=== PATIENT | female | born 1965 | race American Indian/Alaskan Native ===

== ENCOUNTER 2016-03-31 14:06 | Inpatient (IN) | payer BC ==
[2016-03-31] MEDS ORDERED: PROVENTIL IH ONE (14:08)
[2016-03-31] MEDS ORDERED: ATROVENT IH ONE (14:09)
--- NOTE | 2016-03-31 16:53 | XRay Report ---
CHEST 2 VIEWS INDICATION: Shortness of breath. COMPARISON: None similar at this institution. FINDINGS: PA and lateral chest radiographs suggest top normal heart size with normal mediastinal and hilar contours. Clear lungs. Intact bones. EKG leads. CONCLUSION: No acute disease in the chest. Thank you for the opportunity to participate in this patient's care.
[2016-03-31 17:36] LABS: Basophils % (Auto) 0.6 % (0.0-1.8); Eosinophils % (Auto) 1.2 % (0.0-4.3); Hematocrit 27.5 % (30.3-42.9); Hemoglobin 8.3 gm/dl (10.1-14.3); Mean Corpuscular HGB Conc 30 % (30-34); Mean Corpuscular Volume 78 fl (79-97); Platelet Count 404 K/mm3 (140-440); Red Blood Count 3.51 M/mm3 (3.65-5.03); Red Cell Distribution Width 19.3 % (13.2-15.2); White Blood Count 7.6 K/mm3 (4.5-11.0)
[2016-03-31 17:43] LABS: Mean Corpuscular Hemoglobin 24 pg (28-32)
[2016-03-31 18:00] LABS: Anion Gap 22 mmol/L; Blood Urea Nitrogen 8 mg/dL (7-17); Calcium 9.1 mg/dL (8.4-10.2); Carbon Dioxide 21 mmol/L (22-30); Chloride 97.4 mmol/L (98-107); Glucose 171 mg/dL (65-100); Potassium 3.3 mmol/L (3.6-5.0); Sodium 137 mmol/L (137-145)
[2016-03-31] MEDS ORDERED: DELTASONE PO ONE (18:10)
--- NOTE | 2016-03-31 18:12 | Emergency Department Report ---
ED Shortness of Breath HPI - General Chief Complaint: Adult Asthma Stated Complaint: ASTHMA Time Seen by Provider: 03/31/16 17:17 Source: patient Mode of arrival: Ambulatory Limitations: No Limitations - History of Present Illness Initial Comments: 50-year-old female presents to the emergency department complaining of shortness of breath. Patient states for the past 3 days she has been having difficulty breathing that is worse with exertion. She denies chest pain. Patient states she was diagnosed with asthma 2 months ago. She reports occasional wheezing. Patient states she also moved from [place] in the past couple days. She states that she drove for 4 days. There are no other complaints. MD Complaint: shortness of breath -: Gradual, days(s) (3) Consistency: intermittent Improves With: rest Worsens With: exertion Known History Of: asthma, diabetes Context: recent travel Associated Symptoms: denies other symptoms Treatments Prior to Arrival: none - Related Data Previous Rx's Medication Instructions Recorded Last Taken Type predniSONE [Deltasone] 3 tab PO QDAY #15 tab 03/31/16 Unknown Rx Allergies Allergy/AdvReac Type Severity Reaction Status Date / Time Penicillins Allergy Hives Verified 03/31/16 14:35 ED Review of Systems ROS: Stated complaint: ASTHMA Other details as noted in HPI Comment: All other systems reviewed and negative Respiratory: SOB with exertion ED Past Medical Hx - Past Medical History Previous Medical History?: Yes Hx Hypertension: Yes Hx Diabetes: Yes Hx Arthritis: Yes Hx Asthma: Yes - Surgical History Past Surgical History?: Yes Additional Surgical History: - Family History Family history: no significant - Social History Smoking Status: Former Smoker Substance Use Type: None - Medications Home Medications: Home Medications Medication Instructions Recorded Confirmed Last Taken Type predniSONE [Deltasone] 3 tab PO QDAY #15 tab 03/31/16 Unknown Rx ED Physical Exam - General Limitations: No Limitations General appearance: alert, in no apparent distress - Head Head exam: Present: atraumatic, normocephalic - Eye Eye exam: Present: normal appearance, PERRL, EOMI - ENT ENT exam: Present: normal exam, normal orophraynx, mucous membranes moist - Neck Neck exam: Present: normal inspection, full ROM. Absent: tenderness - Respiratory Respiratory exam: Present: normal lung sounds bilaterally. Absent: respiratory distress - Cardiovascular Cardiovascular Exam: Present: regular rate, normal rhythm, normal heart sounds - GI/Abdominal GI/Abdominal exam: Present: soft, normal bowel sounds. Absent: distended, tenderness - Extremities Exam Extremities exam: Present: normal inspection, full ROM. Absent: tenderness - Back Exam Back exam: Present: normal inspection, full ROM. Absent: tenderness - Neurological Exam Neurological exam: Present: alert, oriented X3. Absent: motor sensory deficit - Skin Skin exam: Present: warm, dry, intact ED Course Vital Signs 03/31/16 03/31/16 03/31/16 14:06 14:17 14:42 Temperature 98.1 F Pulse Rate 85 Pulse Rate [ 80 85 Bilateral Upper Lobe] Respiratory 26 H Rate Respiratory 20 20 Rate [Bilateral Upper Lobe] Blood Pressure 132/80 Blood Pressure [Left] O2 Sat by Pulse 100 Oximetry 03/31/16 17:29 Temperature Pulse Rate 102 H Pulse Rate [ Bilateral Upper Lobe] Respiratory 20 Rate Respiratory Rate [Bilateral Upper Lobe] Blood Pressure Blood Pressure 127/86 [Left] O2 Sat by Pulse 98 Oximetry ED Medical Decision Making - Lab Data Result diagrams: 03/31/16 16:47 03/31/16 16:47 - EKG Data -: EKG Interpreted by [place] EKG shows normal: sinus rhythm, axis, intervals, QRS complexes, ST-T waves Rate: tachycardia - EKG Data When compared to previous EKG there are: previous EKG unavailable Interpretation: normal EKG - Medical Decision Making Lab results reviewed and discussed with the patient. Patient has an elevated d- dimer and is in need of a CTA of the chest for evaluation of possible PE. Patient is stating that she needs to go home at this time. Patient states she will come back in the morning for the imaging study. Risks of leaving AGAINST MEDICAL ADVICE were discussed with the patient, including and permanent disability. Patient expresses understanding and states she will come back in the morning. Patient has signed the AMA form. - Differential Diagnosis asthma exacerbation, pulmonary embolism Critical care attestation.: If time is entered above; I have spent that time in minutes in the direct care of this critically ill patient, excluding procedure time. ED Disposition Clinical Impression: Shortness of breath on exertion Disposition: LEFT AGAINST MEDICAL ADVICE Is pt being admited?: No Condition: Stable Prescriptions: predniSONE [Deltasone] 3 tab PO QDAY #15 tab Referrals: PRIMARY CARE, [Primary Care Provider] - 3-5 Days Forms: AMA Form Time of Disposition: 18:12
[2016-03-31] MEDS ORDERED: NACL ONE (18:45)
[2016-03-31] MEDS ORDERED: ZOFRAN IV ONE (19:33)
--- NOTE | 2016-03-31 19:47 | Cat Scan Report ---
FINAL REPORT PROCEDURE: CT ANGIO CHEST TECHNIQUE: Computerized tomographic angiography of the chest was performed after the IV injection of iodinated nonionic contrast including image processing. The image data was postprocessed using 2-dimensional multiplanar reformatted (MPR) and 3-dimensional (MIP and/or volume rendered) techniques. HISTORY: SOB on exertion, recent travel, elevated d-dimer COMPARISON: No prior studies are available for comparison. FINDINGS: Mild hypoventilatory changes are seen in the lungs. No pleural effusion or pneumothorax is seen. Heart is mildly enlarged but no pulmonary venous congestion is seen. No mediastinal lymphadenopathy is seen. Thoracic aorta is normal in size without evidence of dissection. There is a saddle pulmonary embolus with embolus in the right pulmonary artery system being greater than the left pulmonary artery system. On the right there is involvement of multiple proximal and distal branches in the right upper, middle, and lower lobes. On the left there is more mild involvement of several proximal to mid branches of the left upper and lower lobes. There are 2 rounded soft tissue densities in the left lower lobe of the lungs. These measure approximately 1.6 and 0.7 cm in size. Findings could be due to pulmonary infarction but rounded pneumonia or atelectasis are not excluded. Malignancy would be less likely cause but cannot be completely excluded. Followup CT in a few weeks time may be useful to assure resolution. IMPRESSION: Saddle pulmonary embolus is seen with prominent involvement of pulmonary arteries, right greater than left. Two rounded soft tissue densities are seen in the left lower lobe of the lungs and could be rounded pneumonia or atelectasis. Malignancy or pulmonary infarction cannot be completely excluded. Followup chest CT in a few weeks time may be useful to assure resolution. Critical results were discussed with Dr. Newman at 7:45 p.m. on March 31, 2016.
[2016-03-31] MEDS ORDERED: HEPARIN 10,000 UNITS/10 ML IV ONE (19:50)
[2016-03-31] MEDS ORDERED: HEPARIN/ 0.45% NACL-25,000 UNIT/500 ML 25,000 UNIT/500 ML BAG IV SCH (20:00)
[2016-03-31] MEDS ORDERED: ZOFRAN IV PRN (20:24)
[2016-03-31] MEDS ORDERED: MILK OF MAGNESIA PO PRN (20:24)
[2016-03-31] MEDS ORDERED: DULCOLAX PR PRN (20:24)
[2016-03-31] MEDS ORDERED: TYLENOL PO PRN (20:24)
[2016-03-31] MEDS ORDERED: PERCOCET 5/325 PO PRN (20:24)
[2016-03-31] MEDS ORDERED: D50W (25GM) IV PRN (20:24)
[2016-03-31 20:32] LABS: Hematocrit 28.7 % (30.3-42.9); Hemoglobin 8.8 gm/dl (10.1-14.3)
--- NOTE | 2016-03-31 20:37 | History and Physical Report ---
History of Present Illness Date of examination: 03/31/16 Date of admission: 03/31/2016 Chief complaint: Shortness of breath dyspnea on exertion History of present illness: 80-year-old female presents with a 3 day history of shortness of breath dyspnea on minimal exertion. Dry nonproductive cough. Patient states that symptoms may have began upon a drive from [place] to [facility]. Patient states when she got in [place] she daughter was the change in altitude but began having shortness of breath. Several days prior to leaving she had a cough. Patient states she did a cough for 1 month. And she was diagnosis asthma at that time. Patient now complains mostly of dyspnea on exertion and shortness of breath with oversedation. No chest pain no fever or chills no nausea vomiting. Still has an occasional cough. Patient complains of pleuritic pain for the cough. Patient gives a family history of having diabetes and hypertension but no family history of blood clots. She denied any calf pain Tenderness. Past History Past Medical History: diabetes, pulmonary embolism. denies: acute [place], atrial fib, arrhythmia, anemia, arthritis, CAD, cancer, COPD, dialysis, DVT, ESRD, GERD , heart failure, hepatitis, HIV/AIDS, hyperthyroidism, hypertension, hypothyroidism, liver disease, migraines, PVD, renal failure, seizures, stroke, sarcoidosis Past Surgical History: Social history: no significant social history, full code. denies: smoking, alcohol abuse, prescription drug abuse, IV drug use Family history: no significant family history Medications and Allergies Allergies Allergy/AdvReac Type Severity Reaction Status Date / Time Penicillins Allergy Hives Verified 03/31/16 14:35 Home Medications Medication Instructions Recorded Confirmed Last Taken Type Hydrochlorothiazide [HCTZ] 25 mg PO QDAY 03/31/16 03/31/16 03/31/16 History Insulin Glargine [Lantus] 30 units SQ BID 03/31/16 03/31/16 03/31/16 History Insulin Glulisine [Apidra] 10 units SQ TID 03/31/16 03/31/16 03/31/16 History Potassium Chloride [K-Dur] 20 meq PO QDAY 03/31/16 03/31/16 03/31/16 History predniSONE [Deltasone] 3 tab PO QDAY #15 tab 03/31/16 Unknown Rx Active Meds: Active Medications Heparin Sodium/Sodium Chloride (Heparin/ 0.45% Nacl-25,000 Unit/500 Ml) 25,000 unit in 500 mls @ 30 mls/hr IV TITR LINDA; 1,500 UNITS/HR PRN Reason: Protocol Last Admin: 03/31/16 20:00 Dose: 1,500 units/hr, 30 mls/hr Review of Systems Constitutional: fatigue, weakness, no weight loss, no weight gain, no fever, no chills, no sweats, no night sweats, no anorexia, no malaise, no lethargy, no chronic headaches, no poor appetite Ears, nose, mouth and throat: no deferred, no decreased hearing, no nose pain, no nasal congestion, no epistaxis, no bleeding gums, no dysphagia, no hoarseness , no sore throat, no swelling in mouth, no neck fullness/pressure Breasts: normal Cardiovascular: lightheadedness, shortness of breath, dyspnea on exertion, decreased exercise tolerance, no chest pain, no orthopnea, no palpitations, no rapid/irregular heart beat, no edema, no syncope, no paroxysmal nocturnal dyspnea, no claudication, no phlebitis, no high blood pressure, no leg edema Respiratory: cough, shortness of breath, dyspnea on exertion, no cough with sputum, no excessive sputum, no hemoptysis, no congestion, no wheezing, no pleurisy, no pain, no pain on inspiration, no snoring, no sleep apnea, no respiratory infections, no home oxygen Gastrointestinal: no diarrhea, no constipation, no change in bowel habits, no loss of appetite, no early satiety Genitourinary Female: no dysmenorrhea, no dysuria, no urgency, no post void dribbling Menstruation: no post hysterectomy, no period normal, no period spotting, no menses 1-7 days Rectal: no incontinence Musculoskeletal: no neck stiffness, no shooting arm pain, no low back pain, no muscle weakness, no myalgias, no frequent falls, no fractures, no loss of height , no prior amputations Integumentary: no rash, no redness, no wounds, no jaundice, no blisters, no growths, no darkening of skin, no dryness, no brittle nails, no striae Neurological: no transient paralysis, no paralysis, no tingling, no seizures, no syncope, no tremors, no vertigo, no migraines, no convulsions, no aphasia, no change in speech, no change in mentation, no confusion, no memory loss, no gait dysfunction, no motor disturbance, no double vision, no loss of vision Psychiatric: no memory loss, no sleep disturbances, no insomnia, no hypersomnia , no change in appetite, no suicidal ideation, no hopelessness, no confusion, no irritability, no mood swings Endocrine: no heat intolerance, no polyphagia, no polyuria, no nocturia, no excessive sweating, no weight change, no increase in ring/shoe/hat size, no thyroid mass, no palpatations, no low blood sugars Hematologic/Lymphatic: no lymphadenopathy, no lymphedema, no thrombophilia Allergic/Immunologic: no urticaria, no persistent infections, no gluten intolerance, no seasonal allergies Exam - Constitutional Vitals: Temp Pulse Resp BP Pulse Ox 98.1 F 88 16 106/60 99 03/31/16 14:06 03/31/16 19:30 03/31/16 19:30 03/31/16 19:30 03/31/16 19:30 General appearance: Present: mild distress - EENT Eyes: Present: PERRL ENT: hearing intact, clear oral mucosa - Neck Neck: Present: supple, normal ROM - Extremities Extremities: pulses symmetrical, No edema, normal temperature, Full ROM ( negative Homans sign.) Extremity abnormal: other Peripheral Pulses: within normal limits - Abdominal General gastrointestinal: Present: soft, non-tender, non-distended, normal bowel sounds, other (obese) - Rectal Rectal Exam: deferred - Integumentary Integumentary: Present: clear, warm, dry - Musculoskeletal Musculoskeletal: gait normal, strength equal bilaterally - Psychiatric Psychiatric: appropriate mood/affect, intact judgment & insight - Neurologic Neurologic: CNII-XII intact, moves all extremities Results - Labs CBC & Chem 7: 03/31/16 21:06 03/31/16 16:47 Labs: Laboratory Last Values WBC 7.6 K/mm3 (4.5-11.0) 03/31/16 16:47 RBC 3.51 M/mm3 (3.65-5.03) L 03/31/16 16:47 Hgb 8.3 gm/dl (10.1-14.3) L 03/31/16 16:47 Hct 27.5 % (30.3-42.9) L 03/31/16 16:47 MCV 78 fl (79-97) L 03/31/16 16:47 MCH 24 pg (28-32) L 03/31/16 16:47 MCHC 30 % (30-34) 03/31/16 16:47 RDW 19.3 % (13.2-15.2) H 03/31/16 16:47 Plt Count 404 K/mm3 (140-440) 03/31/16 16:47 Lymph % (Auto) 35.3 % (13.4-35.0) H 03/31/16 16:47 Jack % (Auto) 9.1 % (0.0-7.3) H 03/31/16 16:47 Eos % (Auto) 1.2 % (0.0-4.3) 03/31/16 16:47 Baso % (Auto) 0.6 % (0.0-1.8) 03/31/16 16:47 Lymph # 2.7 K/mm3 (1.2-5.4) 03/31/16 16:47 Jack # 0.7 K/mm3 (0.0-0.8) 03/31/16 16:47 Eos # 0.1 K/mm3 (0.0-0.4) 03/31/16 16:47 Baso # 0.0 K/mm3 (0.0-0.1) 03/31/16 16:47 Seg Neutrophils % 53.8 % (40.0-70.0) 03/31/16 16:47 Seg Neutrophils # 4.1 K/mm3 (1.8-7.7) 03/31/16 16:47 D-Dimer 811.42 ng/mlDDU (0-234) H 03/31/16 16:47 Sodium 137 mmol/L (137-145) 03/31/16 16:47 Potassium 3.3 mmol/L (3.6-5.0) L 03/31/16 16:47 Chloride 97.4 mmol/L (98-107) L 03/31/16 16:47 Carbon Dioxide 21 mmol/L (22-30) L 03/31/16 16:47 Anion Gap 22 mmol/L 03/31/16 16:47 BUN 8 mg/dL (7-17) 03/31/16 16:47 Creatinine 0.8 mg/dL (0.7-1.2) 03/31/16 16:47 Estimated GFR > 60 ml/min 03/31/16 16:47 BUN/Creatinine Ratio 10.00 % 03/31/16 16:47 Glucose 171 mg/dL (65-100) H 03/31/16 16:47 Calcium 9.1 mg/dL (8.4-10.2) 03/31/16 16:47 Troponin T < 0.010 ng/mL (0.00-0.029) 03/31/16 16:47 - Imaging and Cardiology EKG: image reviewed CT scan - chest: image reviewed Assessment and Plan Advance Directives: Yes Plan of care discussed with patient/family: Yes - Patient Problems (1) Pulmonary embolism Current Visit: Yes Status: Acute Qualifiers: Pulmonary embolism type: P Chronicity: C Acute cor pulmonale presence: A Plan to address problem: Patient with significant saddle pulmonary embolus. We'll place patient on oxygen. Start heparin drip. We'll begin immediate cardioversion in a.m. with Coumadin. Patient has been explained the plan of care and how we wish to proceed. All explanations have been explained to patient verbalizes understanding. Will obtain bilateral lower extremity ultrasound to rule out DVT. No clear indication for hypercoagulable state at this time. Most likely risk factor was sedentary lifestyle obesity and prolonged drive from [place]. (2) Shortness of breath on exertion Current Visit: Yes Status: Acute Plan to address problem: Oxygens for supportive care heparin drip. (3) Diabetes 1.5, managed as type 1 Current Visit: Yes Status: Acute Plan to address problem: A short history of insulin-dependent diabetes will resume Levemir and place on sliding scale insulin. Titrate accordingly. (4) Anemia Current Visit: Yes Status: Acute Qualifiers: Anemia type: A Iron deficiency anemia type: I Vitamin B12 deficiency anemia type: V Folate deficiency anemia type: F Bone marrow failure anemia type: B Hemolytic anemia type: H Other causes of anemia: O Plan to address problem: H&H with long-standing anemia unknown diagnosis. We'll follow CBC. H&H. No active bleeding on exam.
[2016-03-31 20:44] LABS: INR 1.2 (0.87-1.13)
[2016-03-31 21:37] LABS: Basophils % (Auto) 0.4 % (0.0-1.8); Eosinophils % (Auto) 0.4 % (0.0-4.3); Hemoglobin 8.8 gm/dl (10.1-14.3); Mean Corpuscular HGB Conc 30 % (30-34); Mean Corpuscular Volume 77 fl (79-97); Platelet Count 441 K/mm3 (140-440); Red Blood Count 3.82 M/mm3 (3.65-5.03); Red Cell Distribution Width 18.9 % (13.2-15.2); White Blood Count 11.4 K/mm3 (4.5-11.0)
[2016-03-31 21:38] LABS: Hematocrit 29.5 % (30.3-42.9); Mean Corpuscular Hemoglobin 23 pg (28-32)
[2016-03-31 21:47] LABS: INR 1.16 (0.87-1.13)
[2016-03-31 21:54] LABS: Alanine Aminotransferase 23 units/L (7-56); Albumin 3.8 g/dL (3.9-5); Albumin/Globulin Ratio 0.9 %; Alkaline Phosphatase 83 units/L (35-129); Anion Gap 20 mmol/L; BUN/Creatinine Ratio 8.75; Bilirubin,Total 0.2 mg/dL (0.1-1.2); Blood Urea Nitrogen 7 mg/dL (7-17); Calcium 9.4 mg/dL (8.4-10.2); Carbon Dioxide 23 mmol/L (22-30); Glucose 169 mg/dL (65-100); Potassium 3.5 mmol/L (3.6-5.0); Sodium 135 mmol/L (137-145); Total Protein 7.9 g/dL (6.3-8.2)
[2016-03-31 22:05] LABS: Partial Thromboplastin Time 89.1 Sec. (24.2-36.6)
[2016-03-31] MEDS: HYDROMET PO PRN (22:15)
[2016-03-31] MEDS: MORPHINE IV PRN (22:23)
[2016-03-31] MEDS: LEVEMIR SUB-Q SCH (22:30)
--- NOTE | 2016-03-31 22:45 | Admit Criteria Form ---
Admission Criteria Documentation: PULMONARY EMBOLISM Clinical Indications for Admission to Inpatient Care (Place 'X' for any and all applicable criteria): Admission is indicated by ANY ONE of the following 1,2,3,4,5 [ ]I. Onset of hypoxia [ ]II. Hemodynamic instability 5 [ ]III. Massive pulmonary embolism (eg, acute embolism causing sustained hypotension, pulselessness, or bradycardia)5 [ ]IV. Need for IV narcotics (eg, to treat dyspnea) [ ]V. Current use of home oxygen therapy [ ]. Active bleeding [ ]VII. Recent surgery [ ]VIII. Active peptic ulcer disease [ ]IX. Documented extensive thrombosis (eg, clot in vena cava or above iliofemoral bifurcation) [ ]X. Embolism while on anticoagulation [ ]XI. 6 [ ]XII. Appropriate monitoring and therapy cannot be provided in home or outpatient setting. [ ]XIII. Systemic or catheter-directed thrombolysis 5,7 [ ]XIV. Catheter embolectomy and fragmentation 6 [ ]XV. Vena cava filter placement5 [ ]XVI. Severely diminished cardiopulmonary reserve (eg, cor pulmonale, pulmonary hypertension) [ ]XVII. Severe renal failure (eg, GFR less than 30 mL/min/1.73m2 (0.5 mL/sec/ 1.73m2)) [ ]XVIII.Right ventricular dysfunction (eg, by echocardiogram) 6,11 [ ]XIX. Positive cardiac biomarker (eg, troponin T or I > 0.1 ng/mL (mcg/L), highly sensitive troponin I assay greater than 0.014 ng/mL (mcg/L), BNP or NT proBNP > assay threshold)5,8,9 [ ]XX. Known clotting abn or def (eg, liver disease, antithrombin III, protein C, or protein S abnormality) [ ]XXI. History of heparin-induced thrombocytopenia [ X]XXII. Inpatient admission required rather than observation care (Also use Pulmonary Embolism: Observation Care guideline as appropriate) because of ANY ONE of the following: [ ] a) Significant autoimmune (thrombocytopenia) or coagulopathic reaction occurs in response to anticoagulation [X ] b) Respiratory symptoms (eg, tachypnea, dyspnea) that are severe or persistent [ ] c) Other condition, treatment, or monitoring requiring inpatient admission Extended stay beyond goal length of stay may be needed for 3,28 [ ]a) Hemorrhage or recent surgery [ ]b) Recurrent thromboembolism [ ]c) Persistent hypoxemia [ ]d) Heparin-induced thrombocytopenia The original [facility] [employer] content created by [facility] [employer] has been revised. The portions of the content which have been revised are identified through the use of italic text or in bold, and [facility] has neither reviewed nor approved the modified material. All other unmodified content is copyright [facility] [employer] Please see references footnoted in the original [facility] edition 2016 Admission Criteria Met: Yes
[2016-04-01] MEDS: HEPARIN/ 0.45% NACL-25,000 UNIT/500 ML 25,000 UNIT/500 ML BAG IV SCH ×2 (04:00→12:24)
--- NOTE | 2016-04-01 12:29 | Consultation ---
History of Present Illness - Reason for Consult Consult date: 04/01/16 Saddle Pulmonary Embolus Requesting physician: DIANNE WEEKS - History of Present Illness The patient is a 50-year-old female who recently moved from [place] to [place]. He states that they drove over several days. During the drive on day #2 she states that she developed shortness of breath however she attributed to the snow and increase in elevation in [place]. Upon arriving to [place] she had no resolution in her symptoms so she came to the emergency department was diagnosed with a saddle pulmonary embolus. Since admission she has been started on a heparin drip and has no complaints of chest pain however she continues to have shortness of breath with short distance ambulation. She has no other complaints at this time and denies any significant leg swelling although she does recall having left thigh and hip pain during her trip. Past History Past Medical History: diabetes, pulmonary embolism. denies: acute PR, atrial fib, arrhythmia, anemia, arthritis, CAD, cancer, COPD, dialysis, DVT, ESRD, GERD , heart failure, hepatitis, HIV/AIDS, hyperthyroidism, hypertension, hypothyroidism, liver disease, migraines, PVD, renal failure, seizures, stroke, sarcoidosis Past Surgical History: Social history: no significant social history, full code. denies: smoking, alcohol abuse, prescription drug abuse, IV drug use Family history: other (daughter with history of pulmonary embolus) Medications and Allergies Allergies Allergy/AdvReac Type Severity Reaction Status Date / Time Penicillins Allergy Hives Verified 03/31/16 14:35 Home Medications Medication Instructions Recorded Confirmed Last Taken Type Hydrochlorothiazide [HCTZ] 25 mg PO QDAY 03/31/16 03/31/16 03/31/16 History Insulin Glargine [Lantus] 30 units SQ BID 03/31/16 03/31/16 03/31/16 History Insulin Glulisine [Apidra] 10 units SQ TID 03/31/16 03/31/16 03/31/16 History Potassium Chloride [K-Dur] 20 meq PO QDAY 03/31/16 03/31/16 03/31/16 History predniSONE [Deltasone] 3 tab PO QDAY #15 tab 03/31/16 Unknown Rx Active Meds: Active Medications Acetaminophen (Tylenol) 650 mg PO Q4H PRN PRN Reason: Pain MILD(1-3)/Fever >100.5/BASS Bisacodyl (Dulcolax) 10 mg [place] QDAY PRN PRN Reason: Constipation unrelieved by MOM Dextrose (D50w (25gm)) 50 ml IV PRN PRN PRN Reason: Hypoglycemia Hydrocodone Bit/Homatropine Methylb (Hydromet) 10 ml PO Q6H PRN PRN Reason: Cough Last Admin: 03/31/16 22:15 Dose: 10 ml Heparin Sodium/Sodium Chloride (Heparin/ 0.45% Nacl-25,000 Unit/500 Ml) 25,000 unit in 500 mls @ 30 mls/hr IV TITR LINDA; 1,500 UNITS/HR PRN Reason: Protocol Last Admin: 04/01/16 04:00 Dose: 1,700 units/hr, 34 mls/hr Insulin Detemir (Levemir) 30 units SUB-Q QHS LINDA Last Admin: 03/31/16 22:30 Dose: 30 units Insulin Human Regular (Novolin R) 0 units SUB-Q ACHS LINDA PRN Reason: Protocol Last Admin: 04/01/16 07:55 Dose: Not Given Magnesium Hydroxide (Milk Of Magnesia) 30 ml PO Q4H PRN PRN Reason: Constipation Morphine Sulfate (Morphine) 2 mg IV Q4H PRN PRN Reason: Pain, Moderate (4-6) Last Admin: 03/31/16 22:23 Dose: 2 mg Ondansetron HCl (Zofran) 4 mg IV Q8H PRN PRN Reason: N/V unrelieved by Reglan Oxycodone/Acetaminophen (Percocet 5/325) 1 tab PO Q6H PRN PRN Reason: Pain, Moderate (4-6) Review of Systems All systems: negative Constitutional: no weight loss, no fever, no chills, no sweats, no weakness Ears, nose, mouth and throat: deferred Breasts: normal Cardiovascular: edema, shortness of breath, dyspnea on exertion, no claudication Respiratory: cough, shortness of breath, dyspnea on exertion Gastrointestinal: no abdominal pain, no nausea, no vomiting, no diarrhea, no change in bowel habits Exam - Constitutional Vitals: Temp Pulse Resp BP Pulse Ox 98.5 F 80 20 118/65 97 04/01/16 07:00 04/01/16 07:00 04/01/16 07:00 04/01/16 07:00 04/01/16 07:00 General appearance: Present: no acute distress - Neck Neck: Present: supple - Respiratory Respiratory: bilateral: CTA - Cardiovascular Rhythm: regular - Extremities Extremities: no ischemia, pulses intact, No edema - Abdominal General gastrointestinal: Present: soft, non-tender, non-distended - Rectal Rectal Exam: deferred - Integumentary Integumentary: Present: clear Results - Labs CBC & Chem 7: 03/31/16 21:06 03/31/16 21:06 Labs: Abnormal lab results 03/31/16 03/31/16 03/31/16 Range/Units 21:06 21:06 21:06 WBC 11.4 H (4.5-11.0) K/mm3 Hgb 8.8 L (10.1-14.3) gm/dl Hct 29.5 L (30.3-42.9) % MCV 77 L (79-97) fl MCH 23 L (28-32) pg RDW 18.9 H (13.2-15.2) % Plt Count 441 H (140-440) K/mm3 Lymph % (Auto) 12.8 L (13.4-35.0) % Seg Neutrophils % 83.7 H (40.0-70.0) % Seg Neutrophils # 9.5 H (1.8-7.7) K/mm3 INR 1.16 H (0.87-1.13) APTT 89.1 H* (24.2-36.6) Sec. Heparin Anti-Xa Level (0.3-0.7) U.I./ml Sodium 135 L (137-145) mmol/L Potassium 3.5 L (3.6-5.0) mmol/L Chloride 96.0 L (98-107) mmol/L Glucose 169 H (65-100) mg/dL POC Glucose (70-105) Albumin 3.8 L (3.9-5) g/dL 03/31/16 03/31/16 04/01/16 Range/Units 21:06 22:06 02:27 WBC (4.5-11.0) K/mm3 Hgb (10.1-14.3) gm/dl Hct (30.3-42.9) % MCV (79-97) fl MCH (28-32) pg RDW (13.2-15.2) % Plt Count 472 H (140-440) K/mm3 Lymph % (Auto) (13.4-35.0) % Seg Neutrophils % (40.0-70.0) % Seg Neutrophils # (1.8-7.7) K/mm3 INR (0.87-1.13) APTT (24.2-36.6) Sec. Heparin Anti-Xa Level 0.13 L (0.3-0.7) U.I./ml Sodium (137-145) mmol/L Potassium (3.6-5.0) mmol/L Chloride (98-107) mmol/L Glucose (65-100) mg/dL POC Glucose 218 H (70-105) Albumin (3.9-5) g/dL 04/01/16 Range/Units 06:42 WBC (4.5-11.0) K/mm3 Hgb (10.1-14.3) gm/dl Hct (30.3-42.9) % MCV (79-97) fl MCH (28-32) pg RDW (13.2-15.2) % Plt Count (140-440) K/mm3 Lymph % (Auto) (13.4-35.0) % Seg Neutrophils % (40.0-70.0) % Seg Neutrophils # (1.8-7.7) K/mm3 INR (0.87-1.13) APTT (24.2-36.6) Sec. Heparin Anti-Xa Level (0.3-0.7) U.I./ml Sodium (137-145) mmol/L Potassium (3.6-5.0) mmol/L Chloride (98-107) mmol/L Glucose (65-100) mg/dL POC Glucose 106 H (70-105) Albumin (3.9-5) g/dL - Imaging and Cardiology CT scan - chest: image reviewed Assessment and Plan The patient is a 50-year-old female who presented with shortness of breath and was found to have a saddle pulmonary embolus. This seems to be provoked by a long car ride however she does have a daughter that was diagnosed with a pulmonary embolus 2 years ago. At this point the patient is without chest pain and all vital signs are stable without tachycardia and with a oxygen saturation of 97% on 2 L nasal cannula. She does however have shortness of breath was short distance ambulation. The patient appears to be stable from her saddle pulmonary embolus however I will recommend an ECHO to rule out evidence of right heart strain. If the patient has evidence of right heart strain I would then recommend thrombolysis of her PE. If she has no evidence of right heart strain I believe the risk of thrombolysis outweighs the benefits. For long-term management of her pulmonary embolus I will recommend a minimal 6 months of oral anticoagulation with Xarelto. Additionally given the history of her daughter having a pulmonary embolus I will recommend a hematology consult to rule out a hypercoagulable state. I will also evaluate the patient with a venous duplex to identify any significant clot burden in the lower extremity. I have discussed this plan with the patient and she expressed understanding and agreement with the plan.
[2016-04-01] MEDS: HYDROMET PO PRN (16:00)
[2016-04-01] MEDS: HCTZ PO SCH (17:04)
[2016-04-01] MEDS: K-DUR PO SCH (17:05)
[2016-04-01] MEDS: LEVEMIR SUB-Q SCH (22:14)
[2016-04-01] MEDS: MORPHINE IV PRN (22:59)
[2016-04-02 05:21] LABS: Hematocrit 25.8 % (30.3-42.9); Hemoglobin 7.9 gm/dl (10.1-14.3)
--- NOTE | 2016-04-02 07:19 | Progress Note ---
Assessment and Plan - Patient Problems (1) Acute respiratory failure Current Visit: Yes Status: Acute Qualifiers: Respiratory failure complication: R Plan to address problem: supplemental oxygen, neds, supportive care, treat PE (2) DVT (deep venous thrombosis) Current Visit: Yes Status: Acute Qualifiers: DVT location: D Affected thrombotic vein of extremity: A Laterality: L Chronicity: C Plan to address problem: therapeutic anticoagulation, supportive care (3) Pulmonary embolism Current Visit: Yes Status: Acute Qualifiers: Pulmonary embolism type: P Chronicity: C Acute cor pulmonale presence: A Plan to address problem: therapeutic anticoagulation, supplemental oxygen, nebs, NIPPV as clinically indicated. (4) DVT prophylaxis Current Visit: Yes Status: Acute History Interval history: Pt sitting on side of bed, No reported nursing events. Pt complains of leg aching, but denies difficulty breathing, NVD, syncope, CP, Palpitations, or hemoptysis. Hospitalist Physical - Constitutional Vitals: Temp Pulse Resp BP Pulse Ox 98.2 F 69 18 111/64 97 04/02/16 04:19 04/02/16 04:19 04/02/16 04:19 04/02/16 04:19 04/02/16 04:19 General appearance: Present: no acute distress, obese - EENT Eyes: Present: PERRL ENT: hearing intact - Neck Neck: Present: supple - Respiratory Respiratory: bilateral: diminished - Cardiovascular Rhythm: regular Heart Sounds: Present: S1 & S2 - Extremities Extremities: no ischemia Extremity abnormal: edema Peripheral Pulses: within normal limits - Abdominal General gastrointestinal: soft, non-tender, non-distended - Integumentary Integumentary: Present: clear, warm, dry - Psychiatric Psychiatric: appropriate mood/affect, intact judgment & insight, memory intact, cooperative - Neurologic Neurologic: CNII-XII intact, gait normal Results - Labs CBC & Chem 7: 04/02/16 04:57 03/31/16 21:06 Labs: Laboratory Last Values WBC 11.4 K/mm3 (4.5-11.0) H 03/31/16 21:06 RBC 3.82 M/mm3 (3.65-5.03) 03/31/16 21:06 Hgb 7.9 gm/dl (10.1-14.3) L 04/02/16 04:57 Hct 25.8 % (30.3-42.9) L 04/02/16 04:57 MCV 77 fl (79-97) L 03/31/16 21:06 MCH 23 pg (28-32) L 03/31/16 21:06 MCHC 30 % (30-34) 03/31/16 21:06 RDW 18.9 % (13.2-15.2) H 03/31/16 21:06 Plt Count 350 K/mm3 (140-440) 04/02/16 04:57 Lymph % (Auto) 12.8 % (13.4-35.0) L 03/31/16 21:06 [place] % (Auto) 2.7 % (0.0-7.3) 03/31/16 21:06 Eos % (Auto) 0.4 % (0.0-4.3) 03/31/16 21:06 Baso % (Auto) 0.4 % (0.0-1.8) 03/31/16 21:06 Lymph # 1.5 K/mm3 (1.2-5.4) 03/31/16 21:06 [place] # 0.3 K/mm3 (0.0-0.8) 03/31/16 21:06 Eos # 0.0 K/mm3 (0.0-0.4) 03/31/16 21:06 Baso # 0.0 K/mm3 (0.0-0.1) 03/31/16 21:06 Seg Neutrophils % 83.7 % (40.0-70.0) H 03/31/16 21:06 Seg Neutrophils # 9.5 K/mm3 (1.8-7.7) H 03/31/16 21:06 PT 14.7 Sec. (12.2-14.9) 03/31/16 21:06 INR 1.16 (0.87-1.13) H 03/31/16 21:06 APTT 89.1 Sec. (24.2-36.6) H* 03/31/16 21:06 D-Dimer 811.42 ng/mlDDU (0-234) H 03/31/16 16:47 Heparin Anti-Xa Level 0.70 U.I./ml (0.3-0.7) 04/01/16 10:39 Sodium 135 mmol/L (137-145) L 03/31/16 21:06 Potassium 3.5 mmol/L (3.6-5.0) L 03/31/16 21:06 Chloride 96.0 mmol/L (98-107) L 03/31/16 21:06 Carbon Dioxide 23 mmol/L (22-30) 03/31/16 21:06 Anion Gap 20 mmol/L 03/31/16 21:06 BUN 7 mg/dL (7-17) 03/31/16 21:06 Creatinine 0.8 mg/dL (0.7-1.2) 03/31/16 21:06 Estimated GFR > 60 ml/min 03/31/16 21:06 BUN/Creatinine Ratio 8.75 % 03/31/16 21:06 Glucose 169 mg/dL (65-100) H 03/31/16 21:06 POC Glucose 132 (70-105) H 04/02/16 06:27 Calcium 9.4 mg/dL (8.4-10.2) 03/31/16 21:06 Total Bilirubin 0.2 mg/dL (0.1-1.2) 03/31/16 21:06 AST 22 units/L (5-40) 03/31/16 21:06 ALT 23 units/L (7-56) 03/31/16 21:06 Alkaline Phosphatase 83 units/L (35-129) 03/31/16 21:06 Troponin T < 0.010 ng/mL (0.00-0.029) 03/31/16 16:47 Total Protein 7.9 g/dL (6.3-8.2) 03/31/16 21:06 Albumin 3.8 g/dL (3.9-5) L 03/31/16 21:06 Albumin/Globulin Ratio 0.9 % 03/31/16 21:06 Blood Type B POSITIVE 03/31/16 21:10 Antibody Screen Negative 03/31/16 21:10
[2016-04-02] MEDS: K-DUR PO SCH (09:39)
[2016-04-02] MEDS: HCTZ PO SCH (09:39)
[2016-04-02] MEDS: HEPARIN/ 0.45% NACL-25,000 UNIT/500 ML 25,000 UNIT/500 ML BAG IV SCH (09:42)
--- NOTE | 2016-04-02 12:38 | Progress Note ---
Assessment and Plan The patient's venous duplex demonstrated right lower extremity DVT. Her breathing is improving with anticoagulation and her sats are in the high 90s on room air. She is able to ambulate around the room without significant shortness of breath. The 2-D echo is pending however I suspect that it would not show evidence of right heart strain. If she does not have right heart strain she will not require thrombolysis. We'll wait for those results prior to converting her to oral anticoagulation. I again would recommend a hematology workup to rule out a hypercoagulable disorder given that her daughter had a history of a pulmonary embolus as well. Subjective Date of service: 04/02/16 Interval history: The patient has no new complaints this morning. She states that she ambulate around the room and had some shortness of breath have significantly improved from the previous days. She continues to deny any lower extremity swelling. A venous duplex yesterday demonstrated deep venous thrombosis of the right lower extremity. HER-2 D echo is pending. Objective - Constitutional Vitals: Vital Signs - 12hr 04/02/16 04/02/16 04/02/16 04:19 08:20 09:57 Temperature 98.2 F 98.0 F Pulse Rate [ 69 82 Right Radial] Respiratory 18 20 Rate Blood Pressure 111/64 131/75 [Right Arm] O2 Sat by Pulse 97 99 99 Oximetry General appearance: Present: no acute distress - Respiratory Respiratory effort: normal - Cardiovascular Rhythm: regular Extremities: No edema - Gastrointestinal General gastrointestinal: Present: soft - Labs CBC & Chem 7: 04/02/16 04:57 03/31/16 21:06 Labs: Abnormal lab results 04/01/16 04/01/16 04/01/16 Range/Units 11:38 16:36 21:12 Hgb (10.1-14.3) gm/dl Hct (30.3-42.9) % POC Glucose 162 H 132 H 157 H (70-105) 04/02/16 04/02/16 04/02/16 Range/Units 04:57 06:27 11:41 Hgb 7.9 L (10.1-14.3) gm/dl Hct 25.8 L (30.3-42.9) % POC Glucose 132 H 106 H (70-105)
[2016-04-02] MEDS: MORPHINE IV PRN (20:26)
[2016-04-02] MEDS: HYDROMET PO PRN (20:34)
[2016-04-02] MEDS: PROVENTIL IH PRN (21:48)
[2016-04-02] MEDS: LEVEMIR SUB-Q SCH (23:17)
[2016-04-03] MEDS: HEPARIN/ 0.45% NACL-25,000 UNIT/500 ML 25,000 UNIT/500 ML BAG IV SCH ×2 (01:08→15:55)
[2016-04-03] MEDS: K-DUR PO SCH (10:40)
[2016-04-03] MEDS: HCTZ PO SCH (10:40)
--- NOTE | 2016-04-03 14:19 | Vascular Lab Report ---
LOWER EXTREMITY VENOUS DUPLEX: REASON FOR EXAM: History of pulmonary embolus. COMMENTS ON THE RIGHT: Deep venous thrombus noted in the right peroneal vein extending into the popliteal and distal femoral veins.. The remaining veins visualized are freely compressible without evidence of internal echogenicity. Spontaneous and phasic flow is present proximally. COMMENTS ON THE LEFT: All veins visualized are freely compressible without evidence of internal echogenicity. Flow is spontaneous and phasic throughout. IMPRESSION: Deep venous thrombosis in the right lower extremity.
--- NOTE | 2016-04-03 16:53 | Progress Note ---
Assessment and Plan - Patient Problems (1) Acute respiratory failure Current Visit: Yes Status: Acute Qualifiers: Respiratory failure complication: R Plan to address problem: supplemental oxygen, neds, supportive care, treat PE (2) DVT (deep venous thrombosis) Current Visit: Yes Status: Acute Qualifiers: DVT location: D Affected thrombotic vein of extremity: A Laterality: L Chronicity: C Plan to address problem: therapeutic anticoagulation, supportive care (3) Pulmonary embolism Current Visit: Yes Status: Acute Qualifiers: Pulmonary embolism type: P Chronicity: C Acute cor pulmonale presence: A Plan to address problem: therapeutic anticoagulation, supplemental oxygen, nebs, NIPPV as clinically indicated. (4) DVT prophylaxis Current Visit: Yes Status: Acute History Interval history: Pt sitting on side of bed, No reported nursing events. Pt denies difficulty breathing, NVD, syncope, CP, Palpitations, or hemoptysis. Hospitalist Physical - Constitutional Vitals: Temp Pulse Resp BP Pulse Ox 97.9 F 103 H 20 112/53 99 04/03/16 08:53 04/03/16 08:53 04/03/16 08:53 04/03/16 08:53 04/03/16 09:38 General appearance: Present: no acute distress, obese - EENT Eyes: Present: PERRL, EOM intact ENT: hearing intact - Neck Neck: Present: supple, normal ROM - Respiratory Respiratory: bilateral: diminished - Cardiovascular Rhythm: regular Heart Sounds: Present: S1 & S2 - Extremities Extremities: no ischemia Peripheral Pulses: within normal limits - Abdominal General gastrointestinal: soft, non-tender, non-distended - Integumentary Integumentary: Present: clear, dry - Psychiatric Psychiatric: appropriate mood/affect, cooperative - Neurologic Neurologic: CNII-XII intact Results - Labs CBC & Chem 7: 04/02/16 04:57 03/31/16 21:06 Labs: Laboratory Last Values WBC 11.4 K/mm3 (4.5-11.0) H 03/31/16 21:06 RBC 3.82 M/mm3 (3.65-5.03) 03/31/16 21:06 Hgb 7.9 gm/dl (10.1-14.3) L 04/02/16 04:57 Hct 25.8 % (30.3-42.9) L 04/02/16 04:57 MCV 77 fl (79-97) L 03/31/16 21:06 MCH 23 pg (28-32) L 03/31/16 21:06 MCHC 30 % (30-34) 03/31/16 21:06 RDW 18.9 % (13.2-15.2) H 03/31/16 21:06 Plt Count 350 K/mm3 (140-440) 04/02/16 04:57 Lymph % (Auto) 12.8 % (13.4-35.0) L 03/31/16 21:06 [place] % (Auto) 2.7 % (0.0-7.3) 03/31/16 21:06 Eos % (Auto) 0.4 % (0.0-4.3) 03/31/16 21:06 Baso % (Auto) 0.4 % (0.0-1.8) 03/31/16 21:06 Lymph # 1.5 K/mm3 (1.2-5.4) 03/31/16 21:06 [place] # 0.3 K/mm3 (0.0-0.8) 03/31/16 21:06 Eos # 0.0 K/mm3 (0.0-0.4) 03/31/16 21:06 Baso # 0.0 K/mm3 (0.0-0.1) 03/31/16 21:06 Seg Neutrophils % 83.7 % (40.0-70.0) H 03/31/16 21:06 Seg Neutrophils # 9.5 K/mm3 (1.8-7.7) H 03/31/16 21:06 PT 14.7 Sec. (12.2-14.9) 03/31/16 21:06 INR 1.16 (0.87-1.13) H 03/31/16 21:06 APTT 89.1 Sec. (24.2-36.6) H* 03/31/16 21:06 D-Dimer 811.42 ng/mlDDU (0-234) H 03/31/16 16:47 Heparin Anti-Xa Level 0.84 U.I./ml (0.3-0.7) H 04/03/16 13:14 Sodium 135 mmol/L (137-145) L 03/31/16 21:06 Potassium 3.5 mmol/L (3.6-5.0) L 03/31/16 21:06 Chloride 96.0 mmol/L (98-107) L 03/31/16 21:06 Carbon Dioxide 23 mmol/L (22-30) 03/31/16 21:06 Anion Gap 20 mmol/L 03/31/16 21:06 BUN 7 mg/dL (7-17) 03/31/16 21:06 Creatinine 0.8 mg/dL (0.7-1.2) 03/31/16 21:06 Estimated GFR > 60 ml/min 03/31/16 21:06 BUN/Creatinine Ratio 8.75 % 03/31/16 21:06 Glucose 169 mg/dL (65-100) H 03/31/16 21:06 POC Glucose 109 (70-105) H 04/03/16 12:50 Calcium 9.4 mg/dL (8.4-10.2) 03/31/16 21:06 Total Bilirubin 0.2 mg/dL (0.1-1.2) 03/31/16 21:06 AST 22 units/L (5-40) 03/31/16 21:06 ALT 23 units/L (7-56) 03/31/16 21:06 Alkaline Phosphatase 83 units/L (35-129) 03/31/16 21:06 Troponin T < 0.010 ng/mL (0.00-0.029) 03/31/16 16:47 Total Protein 7.9 g/dL (6.3-8.2) 03/31/16 21:06 Albumin 3.8 g/dL (3.9-5) L 03/31/16 21:06 Albumin/Globulin Ratio 0.9 % 03/31/16 21:06 Blood Type B POSITIVE 03/31/16 21:10 Antibody Screen Negative 03/31/16 21:10
--- NOTE | 2016-04-03 16:55 | Progress Note ---
Assessment and Plan - Patient Problems (1) Acute respiratory failure Current Visit: Yes Status: Acute Qualifiers: Respiratory failure complication: R Plan to address problem: supplemental oxygen, neds, supportive care, treat PE (2) DVT (deep venous thrombosis) Current Visit: Yes Status: Acute Qualifiers: DVT location: D Affected thrombotic vein of extremity: A Laterality: L Chronicity: C Plan to address problem: therapeutic anticoagulation, supportive care (3) Pulmonary embolism Current Visit: Yes Status: Acute Qualifiers: Pulmonary embolism type: P Chronicity: C Acute cor pulmonale presence: A Plan to address problem: therapeutic anticoagulation, supplemental oxygen, nebs, NIPPV as clinically indicated. (4) DVT prophylaxis Current Visit: Yes Status: Acute History Interval history: Pt sitting on side of bed, No reported nursing events. Pt denies difficulty breathing, NVD, syncope, CP, Palpitations, or hemoptysis. Hospitalist Physical - Constitutional Vitals: Temp Pulse Resp BP Pulse Ox 97.9 F 103 H 20 112/53 99 04/03/16 08:53 04/03/16 08:53 04/03/16 08:53 04/03/16 08:53 04/03/16 09:38 General appearance: Present: no acute distress, obese - EENT Eyes: Present: PERRL, EOM intact ENT: hearing intact - Neck Neck: Present: supple - Respiratory Respiratory effort: normal Respiratory: bilateral: diminished - Cardiovascular Rhythm: regular Heart Sounds: Present: S1 & S2 - Extremities Extremities: no ischemia - Abdominal General gastrointestinal: soft, non-tender, non-distended - Integumentary Integumentary: Present: clear, dry - Psychiatric Psychiatric: appropriate mood/affect, cooperative - Neurologic Neurologic: CNII-XII intact Results - Labs CBC & Chem 7: 04/02/16 04:57 03/31/16 21:06 Labs: Laboratory Last Values WBC 11.4 K/mm3 (4.5-11.0) H 03/31/16 21:06 RBC 3.82 M/mm3 (3.65-5.03) 03/31/16 21:06 Hgb 7.9 gm/dl (10.1-14.3) L 04/02/16 04:57 Hct 25.8 % (30.3-42.9) L 04/02/16 04:57 MCV 77 fl (79-97) L 03/31/16 21:06 MCH 23 pg (28-32) L 03/31/16 21:06 MCHC 30 % (30-34) 03/31/16 21:06 RDW 18.9 % (13.2-15.2) H 03/31/16 21:06 Plt Count 350 K/mm3 (140-440) 04/02/16 04:57 Lymph % (Auto) 12.8 % (13.4-35.0) L 03/31/16 21:06 [place] % (Auto) 2.7 % (0.0-7.3) 03/31/16 21:06 Eos % (Auto) 0.4 % (0.0-4.3) 03/31/16 21:06 Baso % (Auto) 0.4 % (0.0-1.8) 03/31/16 21:06 Lymph # 1.5 K/mm3 (1.2-5.4) 03/31/16 21:06 [place] # 0.3 K/mm3 (0.0-0.8) 03/31/16 21:06 Eos # 0.0 K/mm3 (0.0-0.4) 03/31/16 21:06 Baso # 0.0 K/mm3 (0.0-0.1) 03/31/16 21:06 Seg Neutrophils % 83.7 % (40.0-70.0) H 03/31/16 21:06 Seg Neutrophils # 9.5 K/mm3 (1.8-7.7) H 03/31/16 21:06 PT 14.7 Sec. (12.2-14.9) 03/31/16 21:06 INR 1.16 (0.87-1.13) H 03/31/16 21:06 APTT 89.1 Sec. (24.2-36.6) H* 03/31/16 21:06 D-Dimer 811.42 ng/mlDDU (0-234) H 03/31/16 16:47 Heparin Anti-Xa Level 0.84 U.I./ml (0.3-0.7) H 04/03/16 13:14 Sodium 135 mmol/L (137-145) L 03/31/16 21:06 Potassium 3.5 mmol/L (3.6-5.0) L 03/31/16 21:06 Chloride 96.0 mmol/L (98-107) L 03/31/16 21:06 Carbon Dioxide 23 mmol/L (22-30) 03/31/16 21:06 Anion Gap 20 mmol/L 03/31/16 21:06 BUN 7 mg/dL (7-17) 03/31/16 21:06 Creatinine 0.8 mg/dL (0.7-1.2) 03/31/16 21:06 Estimated GFR > 60 ml/min 03/31/16 21:06 BUN/Creatinine Ratio 8.75 % 03/31/16 21:06 Glucose 169 mg/dL (65-100) H 03/31/16 21:06 POC Glucose 109 (70-105) H 04/03/16 12:50 Calcium 9.4 mg/dL (8.4-10.2) 03/31/16 21:06 Total Bilirubin 0.2 mg/dL (0.1-1.2) 03/31/16 21:06 AST 22 units/L (5-40) 03/31/16 21:06 ALT 23 units/L (7-56) 03/31/16 21:06 Alkaline Phosphatase 83 units/L (35-129) 03/31/16 21:06 Troponin T < 0.010 ng/mL (0.00-0.029) 03/31/16 16:47 Total Protein 7.9 g/dL (6.3-8.2) 03/31/16 21:06 Albumin 3.8 g/dL (3.9-5) L 03/31/16 21:06 Albumin/Globulin Ratio 0.9 % 03/31/16 21:06 Blood Type B POSITIVE 03/31/16 21:10 Antibody Screen Negative 03/31/16 21:10
--- NOTE | 2016-04-03 16:55 | Event Note ---
Date: 04/03/16 Echo completed, but report not available. If this does not show right heart strain, then can convert to oral anticoagulation. Recommend Hematology consult for hypercoagulable work up.
[2016-04-03] MEDS: PROVENTIL IH PRN (20:23)
[2016-04-03] MEDS: MORPHINE IV PRN (22:33)
[2016-04-03] MEDS: LEVEMIR SUB-Q SCH (22:33)
[2016-04-03] MEDS: HYDROMET PO PRN (22:34)
[2016-04-04 05:51] LABS: Hematocrit 27.2 % (30.3-42.9); Hemoglobin 8.2 gm/dl (10.1-14.3)
[2016-04-04] MEDS: HCTZ PO SCH (09:04)
[2016-04-04] MEDS: K-DUR PO SCH (09:04)
[2016-04-04] MEDS: HEPARIN/ 0.45% NACL-25,000 UNIT/500 ML 25,000 UNIT/500 ML BAG IV SCH (09:05)
--- NOTE | 2016-04-04 15:44 | Progress Note ---
Assessment and Plan - Patient Problems (1) Acute respiratory failure Current Visit: Yes Status: Acute Qualifiers: Respiratory failure complication: R Plan to address problem: Resolved (2) DVT (deep venous thrombosis) Current Visit: Yes Status: Acute Qualifiers: DVT location: D Affected thrombotic vein of extremity: A Laterality: L Chronicity: C Plan to address problem: On heparin drip (3) Diabetes 1.5, managed as type 1 Current Visit: Yes Status: Acute Plan to address problem: Sliding scale insulin (4) Pulmonary embolism Current Visit: Yes Status: Acute Qualifiers: Pulmonary embolism type: P Chronicity: C Acute cor pulmonale presence: A Plan to address problem: On heparin drip Echo is normal Hematology consulted for hypercoagulability workup We going to start the patient on eliquis on discharge (5) Shortness of breath on exertion Current Visit: Yes Status: Acute Plan to address problem: Resolved History Interval history: Patient was seen and evaluated this morning. No shortness of breath or chest pain. Hospitalist Physical - Physical exam Narrative exam: Not in cardiopulmonary distress. The patient is obese. Vital signs as documented. Head exam is unremarkable. No scleral icterus . Neck is without jugular venous distension, thyromegaly, or carotid bruits. Lungs are clear to auscultation. Cardiac exam reveals regular rate and Rhythm. First and second heart sounds normal. No murmurs, rubs or gallops. Abdominal exam reveals normal bowel sounds, no masses, no organomegaly and no aortic enlargement. Extremities are nonedematous and both femoral and pedal pulses are normal. 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 No focal weakness. - Constitutional Vitals: Temp Pulse Resp BP Pulse Ox 97.9 F 74 20 111/68 98 04/04/16 08:07 04/04/16 08:07 04/04/16 08:07 04/04/16 08:07 04/04/16 10:00 General appearance: Present: no acute distress, obese Results - Labs CBC & Chem 7: 04/04/16 05:39 03/31/16 21:06 Labs: Laboratory Last Values WBC 11.4 K/mm3 (4.5-11.0) H 03/31/16 21:06 RBC 3.82 M/mm3 (3.65-5.03) 03/31/16 21:06 Hgb 8.2 gm/dl (10.1-14.3) L 04/04/16 05:39 Hct 27.2 % (30.3-42.9) L 04/04/16 05:39 MCV 77 fl (79-97) L 03/31/16 21:06 MCH 23 pg (28-32) L 03/31/16 21:06 MCHC 30 % (30-34) 03/31/16 21:06 RDW 18.9 % (13.2-15.2) H 03/31/16 21:06 Plt Count 333 K/mm3 (140-440) 04/04/16 05:39 Lymph % (Auto) 12.8 % (13.4-35.0) L 03/31/16 21:06 [place] % (Auto) 2.7 % (0.0-7.3) 03/31/16 21:06 Eos % (Auto) 0.4 % (0.0-4.3) 03/31/16 21:06 Baso % (Auto) 0.4 % (0.0-1.8) 03/31/16 21:06 Lymph # 1.5 K/mm3 (1.2-5.4) 03/31/16 21:06 [place] # 0.3 K/mm3 (0.0-0.8) 03/31/16 21:06 Eos # 0.0 K/mm3 (0.0-0.4) 03/31/16 21:06 Baso # 0.0 K/mm3 (0.0-0.1) 03/31/16 21:06 Seg Neutrophils % 83.7 % (40.0-70.0) H 03/31/16 21:06 Seg Neutrophils # 9.5 K/mm3 (1.8-7.7) H 03/31/16 21:06 PT 14.7 Sec. (12.2-14.9) 03/31/16 21:06 INR 1.16 (0.87-1.13) H 03/31/16 21:06 APTT 89.1 Sec. (24.2-36.6) H* 03/31/16 21:06 D-Dimer 811.42 ng/mlDDU (0-234) H 03/31/16 16:47 Heparin Anti-Xa Level 0.55 U.I./ml (0.3-0.7) 04/03/16 23:45 Sodium 135 mmol/L (137-145) L 03/31/16 21:06 Potassium 3.5 mmol/L (3.6-5.0) L 03/31/16 21:06 Chloride 96.0 mmol/L (98-107) L 03/31/16 21:06 Carbon Dioxide 23 mmol/L (22-30) 03/31/16 21:06 Anion Gap 20 mmol/L 03/31/16 21:06 BUN 7 mg/dL (7-17) 03/31/16 21:06 Creatinine 0.8 mg/dL (0.7-1.2) 03/31/16 21:06 Estimated GFR > 60 ml/min 03/31/16 21:06 BUN/Creatinine Ratio 8.75 % 03/31/16 21:06 Glucose 169 mg/dL (65-100) H 03/31/16 21:06 POC Glucose 118 (70-105) H 04/04/16 05:12 Calcium 9.4 mg/dL (8.4-10.2) 03/31/16 21:06 Total Bilirubin 0.2 mg/dL (0.1-1.2) 03/31/16 21:06 AST 22 units/L (5-40) 03/31/16 21:06 ALT 23 units/L (7-56) 03/31/16 21:06 Alkaline Phosphatase 83 units/L (35-129) 03/31/16 21:06 Troponin T < 0.010 ng/mL (0.00-0.029) 03/31/16 16:47 Total Protein 7.9 g/dL (6.3-8.2) 03/31/16 21:06 Albumin 3.8 g/dL (3.9-5) L 03/31/16 21:06 Albumin/Globulin Ratio 0.9 % 03/31/16 21:06 Blood Type B POSITIVE 03/31/16 21:10 Antibody Screen Negative 03/31/16 21:10
--- NOTE | 2016-04-04 15:54 | Progress Note ---
Assessment and Plan Patient is status post a saddle pulmonary embolus following a long distance car trip. The echocardiogram report was reviewed. The right atrial and ventricular sizes appear to be normal. The right ventricular function appears to be normal. There is a report of mild pulmonary hypertension. Based upon the patient's clinical presentation and a lack of compelling evidence of right heart strain on the echocardiogram, we would not recommend thrombolytic therapy for her pulmonary embolus at this time. Recommend converting from intravenous to oral anticoagulation (would consider Xarelto/ Eliquis over Coumadin unless cost prohibitive). Agree with Hematology consult given strong family history of multiple thrombotic events. Will see again as needed. Subjective Date of service: 04/04/16 Interval history: Patient is awake and alert. She denies any new complaints. Objective - Constitutional Vitals: Vital Signs - 12hr 04/04/16 04/04/16 04/04/16 04:13 08:07 10:00 Temperature 98.6 F 97.9 F Pulse Rate [ 94 H 74 Right Radial] Respiratory 22 20 Rate Blood Pressure 113/64 111/68 [Right Arm] O2 Sat by Pulse 98 100 98 Oximetry General appearance: Present: no acute distress - EENT ENT: hearing intact - Respiratory Respiratory effort: normal (on room air at rest) Extremities: no ischemia, normal temperature - Neurologic Neurologic: no focal deficits - Psychiatric Psychiatric: appropriate mood/affect, intact judgment & insight, cooperative - Labs CBC & Chem 7: 04/04/16 05:39 03/31/16 21:06 Labs: Abnormal lab results 04/03/16 04/03/16 04/04/16 Range/Units 17:31 22:03 05:12 Hgb (10.1-14.3) gm/dl Hct (30.3-42.9) % POC Glucose 121 H 170 H 118 H (70-105) 04/04/16 Range/Units 05:39 Hgb 8.2 L (10.1-14.3) gm/dl Hct 27.2 L (30.3-42.9) % POC Glucose (70-105)
[2016-04-04] MEDS: HYDROMET PO PRN (20:47)
[2016-04-04] MEDS: PROVENTIL IH PRN (21:07)
[2016-04-04] MEDS ORDERED: BENADRYL IV PRN (22:03)
[2016-04-04] MEDS: LEVEMIR SUB-Q SCH (22:35)
--- NOTE | 2016-04-04 22:50 | Consultation ---
History of Present Illness - Reason for Consult Consult date: 04/04/16 Yang saddle embolism. Requesting physician: DIANNE WEEKS - History of Present Illness Thank you for this consult. patient seen/examined this afternoon, records/labs reviewe, case d/w patient. Kindly asked to see this patient who had a 4days ride from [place], presented to the Er with sx consistent with, and finally dx with B/l saddle emboli, and DVT. she has since been started on IV heparin. Patient recounts her daughter with hx of Blood clot, as well as her uncle having Blood clot also, Both with Unknown etiology.patient is obese, and has hx of DM-2, and her JOB requires her to sit all day. She also recalls a remote hx of hemorahge. with .She denies any hx of loss or miscarrages. Past History Past Medical History: diabetes, pulmonary embolism. denies: acute [place], atrial fib, arrhythmia, anemia, arthritis, CAD, cancer, COPD, dialysis, DVT, ESRD, GERD , heart failure, hepatitis, HIV/AIDS, hyperthyroidism, hypertension, hypothyroidism, liver disease, migraines, PVD, renal failure, seizures, stroke, sarcoidosis Past Surgical History: Social history: no significant social history, full code. denies: smoking, alcohol abuse, prescription drug abuse, IV drug use Family history: other (daughter with history of pulmonary embolus) Medications and Allergies Allergies Allergy/AdvReac Type Severity Reaction Status Date / Time Penicillins Allergy Hives Verified 03/31/16 14:35 Home Medications Medication Instructions Recorded Confirmed Last Taken Type Hydrochlorothiazide [HCTZ] 25 mg PO QDAY 03/31/16 03/31/16 03/31/16 History Insulin Glargine [Lantus] 30 units SQ BID 03/31/16 03/31/16 03/31/16 History Insulin Glulisine [Apidra] 10 units SQ TID 03/31/16 03/31/16 03/31/16 History Potassium Chloride [K-Dur] 20 meq PO QDAY 03/31/16 03/31/16 03/31/16 History predniSONE [Deltasone] 3 tab PO QDAY #15 tab 03/31/16 Unknown Rx Active Meds: Active Medications Acetaminophen (Tylenol) 650 mg PO Q4H PRN PRN Reason: Pain MILD(1-3)/Fever >100.5/BASS Albuterol (Proventil) 2.5 mg IH Q4HRT PRN PRN Reason: Shortness Of Breath Last Admin: 04/04/16 21:07 Dose: 2.5 mg Bisacodyl (Dulcolax) 10 mg TN QDAY PRN PRN Reason: Constipation unrelieved by MOM Dextrose (D50w (25gm)) 50 ml IV PRN PRN PRN Reason: Hypoglycemia Diphenhydramine HCl (Benadryl) 25 mg IV Q6H PRN PRN Reason: Itching Last Admin: 04/04/16 22:35 Dose: 25 mg Hydrochlorothiazide (Hctz) 25 mg PO QDAY LINDA Last Admin: 04/04/16 09:04 Dose: 25 mg Hydrocodone Bit/Homatropine Methylb (Hydromet) 10 ml PO Q6H PRN PRN Reason: Cough Last Admin: 04/04/16 20:47 Dose: 10 ml Heparin Sodium/Sodium Chloride (Heparin/ 0.45% Nacl-25,000 Unit/500 Ml) 25,000 unit in 500 mls @ 30 mls/hr IV TITR LINDA; 1,500 UNITS/HR PRN Reason: Protocol Last Titration: 04/04/16 22:11 Dose: 1,500 units/hr, 30 mls/hr Insulin Detemir (Levemir) 30 units SUB-Q QHS LINDA Last Admin: 04/04/16 22:35 Dose: 30 units Insulin Human Regular (Novolin R) 0 units SUB-Q ACHS LINDA PRN Reason: Protocol Last Admin: 04/04/16 22:36 Dose: 2 units Magnesium Hydroxide (Milk Of Magnesia) 30 ml PO Q4H PRN PRN Reason: Constipation Morphine Sulfate (Morphine) 2 mg IV Q4H PRN PRN Reason: Pain, Moderate (4-6) Last Admin: 04/03/16 22:33 Dose: 2 mg Ondansetron HCl (Zofran) 4 mg IV Q8H PRN PRN Reason: N/V unrelieved by Reglan Oxycodone/Acetaminophen (Percocet 5/325) 1 tab PO Q6H PRN PRN Reason: Pain, Moderate (4-6) Last Admin: 04/04/16 20:51 Dose: 1 tab Potassium Chloride (K-Dur) 20 meq PO QDAY LINDA Last Admin: 04/04/16 09:04 Dose: 20 meq Exam - Constitutional Vitals: Temp Pulse Resp BP Pulse Ox 97.6 F 77 18 110/57 96 04/04/16 21:02 04/04/16 21:02 04/04/16 21:02 04/04/16 21:02 04/04/16 21:02 Results - Labs CBC & Chem 7: 04/04/16 05:39 03/31/16 21:06 Labs: Abnormal lab results 04/03/16 04/04/16 04/04/16 Range/Units 22:03 05:12 05:39 Hgb 8.2 L (10.1-14.3) gm/dl Hct 27.2 L (30.3-42.9) % Heparin Anti-Xa Level (0.3-0.7) U.I./ml POC Glucose 170 H 118 H (70-105) 04/04/16 04/04/16 04/04/16 Range/Units 11:00 15:07 20:14 Hgb (10.1-14.3) gm/dl Hct (30.3-42.9) % Heparin Anti-Xa Level 0.74 H (0.3-0.7) U.I./ml POC Glucose 179 H 117 H (70-105) 04/04/16 Range/Units 21:15 Hgb (10.1-14.3) gm/dl Hct (30.3-42.9) % Heparin Anti-Xa Level (0.3-0.7) U.I./ml POC Glucose 151 H (70-105)
[2016-04-05] MEDS: HEPARIN/ 0.45% NACL-25,000 UNIT/500 ML 25,000 UNIT/500 ML BAG IV SCH (00:28)
[2016-04-05 04:49] LABS: Hematocrit 28.6 % (30.3-42.9); Hemoglobin 8.8 gm/dl (10.1-14.3); Mean Corpuscular HGB Conc 31 % (30-34); Mean Corpuscular Hemoglobin 24 pg (28-32); Mean Corpuscular Volume 77 fl (79-97); Platelet Count 332 K/mm3 (140-440); Red Blood Count 3.74 M/mm3 (3.65-5.03); White Blood Count 6.4 K/mm3 (4.5-11.0)
[2016-04-05 04:54] LABS: Anion Gap 18 mmol/L; BUN/Creatinine Ratio 8.88; Blood Urea Nitrogen 8 mg/dL (7-17); Calcium 9.3 mg/dL (8.4-10.2); Carbon Dioxide 23 mmol/L (22-30); Chloride 99.7 mmol/L (98-107); Glucose 136 mg/dL (65-100); Potassium 3.9 mmol/L (3.6-5.0); Sodium 137 mmol/L (137-145)
[2016-04-05 06:43] LABS: Anisocytosis 1+; Basophils % (Manual) 0 % (0.0-1.8); Blastocytes % (Manual) 0 %; Diff Status Complete; Eosinophils % (Manual) 0 % (0.0-4.3); Hypochromasia 1+; Platelet Estimate Consistent w Auto
[2016-04-05 08:45] VITALS: BP 130/65
[2016-04-05] MEDS: HCTZ PO SCH (09:48)
[2016-04-05] MEDS: K-DUR PO SCH (09:48)
--- NOTE | 2016-04-05 10:12 | Discharge Summary ---
Providers - Providers Date of Admission: 03/31/16 20:24 Date of discharge: 04/05/16 Attending physician: NOEMÍ PATTON MD 04/04/16 08:11 Consult to Physician [CONS] Routine Consulting Provider: KALYANI GARRISON Reason For Exam: Saddle embolus, DVT Place consult to:: Hematology Notified:: OFFICE Phone number called:: [phone] Was contact made?: Yes If yes, spoke with:: SHERRI Time called:: 11:08 04/04/16 15:24 Consult to Physician [CONS] Routine Consulting Provider: ANDI PFEIFFER Reason For Exam: DVT, saddle embolus Place consult to:: hematology/ Notified:: DR. PFEIFFER Primary care physician: FIBER TECHNICIAN Hospitalization Reason for admission: Saddle PE Condition: Stable Hospital course: 50-year-old -[place] African female was admitted for saddle embolus after she was presented with shortness of breath. Patient recently drove from [place]. Patient stated her uncle and daughter has history of DVT. Hematology was consulted and hypercoagulability workup was done and the results will be followed in the clinic. He give his information and business card to call and have an appointment with him. Vascular surgery was consulted and recommended medical therapy this time. Patient was on heparin drip and discharge with Eliquis. Disposition: DISCHARGED TO HOME OR SELFCARE Time spent for discharge: 31 minutes - Discharge Diagnoses (1) Acute respiratory failure Status: Acute Qualifiers: Respiratory failure complication: R (2) DVT (deep venous thrombosis) Status: Acute Qualifiers: DVT location: D Affected thrombotic vein of extremity: A Laterality: L Chronicity: C (3) Diabetes 1.5, managed as type 1 Status: Acute (4) Pulmonary embolism Status: Acute Qualifiers: Pulmonary embolism type: P Chronicity: C Acute cor pulmonale presence: A (5) Shortness of breath on exertion Status: Acute Core Measure Documentation - Palliative Care Palliative Care/ Comfort Measures: Not Applicable - Core Measures Any of the following diagnoses?: none - VTE Discharge Requirements Deep Vein Thrombosis/Pulmonary Embolism Present on Admission: No Has pt received <5 days of overlap therapy or INR<2.0: Yes (criteria for overlap therapy at discharge: on overlap therapy for less than 5 days or INR<2.0 ) Anticoagulant overlap therapy prescribed at discharge: No Contraindication No Overlap Therapy order at DC: Not Indicated (patient d/c on eliquis) Exam - Physical Exam Narrative exam: Not in cardiopulmonary distress. The patient is obese. Vital signs as documented. Head exam is unremarkable. No scleral icterus . Neck is without jugular venous distension, thyromegaly, or carotid bruits. Lungs are clear to auscultation. Cardiac exam reveals regular rate and Rhythm. First and second heart sounds normal. No murmurs, rubs or gallops. Abdominal exam reveals normal bowel sounds, no masses, no organomegaly and no aortic enlargement. Extremities are nonedematous and both femoral and pedal pulses are normal. 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 No focal weakness. - Constitutional Vitals: Temp Pulse Resp BP Pulse Ox 97.5 F L 76 20 130/65 96 04/05/16 08:35 04/05/16 08:35 04/05/16 08:35 04/05/16 08:35 04/05/16 08:35 Plan Activity: no restrictions Weight Bearing Status: Full Weight Bearing Diet: low fat, low cholesterol, low salt, diabetic Follow up with: PRIMARY CARE, [Primary Care Provider] - 3-5 Days Forms: AMA Form Prescriptions: ALBUTEROL Inhaler [ProAir HFA Inhaler] 1 puff IH QID PRN #1 can PRN Reason: Congestion Apixaban [Eliquis] 5 mg PO BID #74 tablet Fluticasone [Flonase] 1 spray NS QDAY #1 bottle oxyCODONE /ACETAMINOPHEN [Percocet 5/325 mg] 1 tab PO Q6H PRN #12 tablet PRN Reason: Pain, Moderate (4-6) predniSONE [Deltasone] 3 tab PO QDAY #15 tab
--- NOTE | 2016-04-05 22:20 | Consultation ---
History of Present Illness - Reason for Consult Consult date: 04/05/16 - History of Present Illness Patient seen/examined todays am, with late entry. I have completed full w/up, and discussed with patient. I have given her my card. She will see me in the office in 1-2wks to go over lab findings. She is going home on eloquis./LMWH as abridge. Past History Past Medical History: diabetes, pulmonary embolism. denies: acute [place], atrial fib, arrhythmia, anemia, arthritis, CAD, cancer, COPD, dialysis, DVT, ESRD, GERD , heart failure, hepatitis, HIV/AIDS, hyperthyroidism, hypertension, hypothyroidism, liver disease, migraines, PVD, renal failure, seizures, stroke, sarcoidosis Past Surgical History: Social history: no significant social history, full code. denies: smoking, alcohol abuse, prescription drug abuse, IV drug use Family history: other (daughter with history of pulmonary embolus) Medications and Allergies Allergies Allergy/AdvReac Type Severity Reaction Status Date / Time Penicillins Allergy Hives Verified 03/31/16 14:35 Home Medications Medication Instructions Recorded Confirmed Last Taken Type Hydrochlorothiazide [HCTZ] 25 mg PO QDAY 03/31/16 03/31/16 03/31/16 History Insulin Glargine [Lantus] 30 units SQ BID 03/31/16 03/31/16 03/31/16 History Insulin Glulisine [Apidra] 10 units SQ TID 03/31/16 03/31/16 03/31/16 History Potassium Chloride [K-Dur] 20 meq PO QDAY 03/31/16 03/31/16 03/31/16 History predniSONE [Deltasone] 3 tab PO QDAY #15 tab 03/31/16 Unknown Rx ALBUTEROL Inhaler [ProAir HFA 1 puff IH QID PRN #1 can 04/05/16 Unknown Rx Inhaler] Apixaban [Eliquis] 5 mg PO BID #74 tablet 04/05/16 Unknown Rx Fluticasone [Flonase] 1 spray NS QDAY #1 bottle 04/05/16 Unknown Rx oxyCODONE /ACETAMINOPHEN [Percocet 1 tab PO Q6H PRN #12 tablet 04/05/16 Unknown Rx 5/325 mg] Review of Systems Breasts: deferred Exam - Constitutional Vitals: Temp Pulse Resp BP Pulse Ox 97.5 F L 76 20 130/65 96 04/05/16 08:35 04/05/16 08:35 04/05/16 08:35 04/05/16 08:35 04/05/16 08:35 General appearance: Present: no acute distress, well-nourished - EENT Eyes: Present: PERRL ENT: hearing intact, clear oral mucosa - Neck Neck: Present: supple, normal ROM - Respiratory Respiratory effort: normal Respiratory: bilateral: CTA - Cardiovascular Heart Sounds: Present: S1 & S2. Absent: rub, click - Extremities Extremities: pulses symmetrical, No edema Peripheral Pulses: within normal limits - Abdominal General gastrointestinal: Present: soft, non-tender, non-distended, normal bowel sounds Female genitourinary: Present: deferred - Rectal Rectal Exam: deferred - Integumentary Integumentary: Present: clear, warm, dry - Musculoskeletal Musculoskeletal: gait normal, strength equal bilaterally - Psychiatric Psychiatric: appropriate mood/affect, intact judgment & insight - Neurologic Neurologic: CNII-XII intact, moves all extremities Results - Labs CBC & Chem 7: 04/05/16 04:19 04/05/16 04:19 Labs: Abnormal lab results 04/05/16 04/05/16 04/05/16 Range/Units 04:19 04:19 07:11 Hgb 8.8 L (10.1-14.3) gm/dl Hct 28.6 L (30.3-42.9) % MCV 77 L (79-97) fl MCH 24 L (28-32) pg RDW 19.0 H (13.2-15.2) % Seg Neuts % (Manual) 34.0 L (40.0-70.0) % Lymphocytes % (Manual) 53.0 H (13.4-35.0) % Monocytes % (Manual) 11.0 H (0.0-7.3) % Glucose 136 H (65-100) mg/dL POC Glucose 145 H (70-105) 04/05/16 Range/Units 11:38 Hgb (10.1-14.3) gm/dl Hct (30.3-42.9) % MCV (79-97) fl MCH (28-32) pg RDW (13.2-15.2) % Seg Neuts % (Manual) (40.0-70.0) % Lymphocytes % (Manual) (13.4-35.0) % Monocytes % (Manual) (0.0-7.3) % Glucose (65-100) mg/dL POC Glucose 168 H (70-105) Assessment and Plan - Patient Problems (1) DVT (deep venous thrombosis) Status: Acute Qualifiers: DVT location: D Affected thrombotic vein of extremity: A Laterality: L Chronicity: C Plan to address problem: see note above. (2) Pulmonary embolism Status: Acute Qualifiers: Pulmonary embolism type: P Chronicity: C Acute cor pulmonale presence: A
[2016-04-07 07:48] LABS: PTT-LA 66 sec (<=40)
[2016-04-07 16:28] LABS: Protein S, Free 110 % normal (50-147); Protein S, Total 119 % (70-140)
== END 2016-04-05 14:30 | disposition home or self-care (01) | DRG 175 ==
LOC: ED 14:06 → 3A 20:24
PROVIDERS: ADMIT Internal Medicine; ATTEND Internal Medicine
DX: I26.92 Saddle embolus of pulmonary artery without acute cor pulmonale (principal); J96.00 Acute respiratory failure, unspecified whether with hypoxia or hypercapnia; I82.411 Acute embolism and thrombosis of right femoral vein; I82.431 Acute embolism and thrombosis of right popliteal vein; I82.491 Acute embolism and thrombosis of other specified deep vein of right lower extremity; Z68.41 Body mass index [BMI] 40.0-44.9, adult; J45.909 Unspecified asthma, uncomplicated; I10 Essential (primary) hypertension; M19.90 Unspecified osteoarthritis, unspecified site; E10.9 Type 1 diabetes mellitus without complications; E66.9 Obesity, unspecified; Z79.899 Other long term (current) drug therapy; Z87.891 Personal history of nicotine dependence; Z88.0 Allergy status to penicillin
CPT/HCPCS: 36415; 71020; 71275; 80048; 80053; 82962; 84484; 85007; 85014; 85018; 85025; 85049; 85220; 85301; 85305; 85379; 85520; 85610; 85613; 85730; 86850; 86900; 86901; 93005; 93010; 93306; 93970; 94640; 94760; 96374; 96375; 99406; J1200; J1644; J1815; J1818; J2270; J2405; J7512; Q9967

== ENCOUNTER 2016-05-28 10:17 | Emergency (ER) | payer SELFPAY ==
[2016-05-28 10:27] VITALS: BP 141/92
--- NOTE | 2016-05-28 11:32 | Emergency Department Report ---
HPI - General Chief Complaint: Medical Clearance Time Seen by Provider: 05/28/16 11:08 - HPI HPI: 50-year-old female presents today for medication refill. Patient states that she has history of diabetes and has been out of her insulin for the past 2 days. She states that she has recently moved from [place] and her insurance has not transferred for which reason she does not have medical coverage at this time. Patient would also like a refill for hydrochlorothiazide 25 mg by mouth daily, potassium chloride 20 and 2 by mouth daily, Apixaban 5 mg by mouth twice a day, montelukast Sodium 10 mg one tablet by mouth daily. Patient also states that she has history of sinus problems and is complaining of right-sided facial pressure 2 days. Patient has not tried taking any medication for symptomatic relief. She is requesting a Z-Ethan and refuses any other antibiotic due to associated diarrhea. Patient denies fever, chills, nausea, vomiting, chest pain , shortness of breath, abdominal pain. ED Past Medical Hx - Past Medical History Previous Medical History?: Yes Hx Hypertension: Yes Hx Congestive Heart Failure: No Hx Diabetes: Yes Hx Arthritis: Yes Hx Asthma: Yes Hx COPD: No - Surgical History Past Surgical History?: Yes Additional Surgical History: - Social History Smoking Status: Never Smoker Substance Use Type: Prescribed - Medications Home Medications: Home Medications Medication Instructions Recorded Confirmed Last Taken Type predniSONE [Deltasone] 3 tab PO QDAY #15 tab 03/31/16 Unknown Rx ALBUTEROL Inhaler [ProAir HFA 1 puff IH QID PRN #1 can 04/05/16 Unknown Rx Inhaler] Fluticasone [Flonase] 1 spray NS QDAY #1 bottle 04/05/16 Unknown Rx oxyCODONE /ACETAMINOPHEN [Percocet 1 tab PO Q6H PRN #12 tablet 04/05/16 Unknown Rx 5/325 mg] Apixaban [Eliquis] 5 mg PO BID #60 tablet 05/28/16 Unknown Rx Azithromycin [Zithromax Z-ETHAN] 250 mg PO QDAY #6 tablet 05/28/16 Unknown Rx Hydrochlorothiazide [HCTZ] 25 mg PO QDAY #30 tablet 05/28/16 Unknown Rx Insulin Glargine [Lantus VIAL] 30 units SQ BID #2000 units 05/28/16 Unknown Rx Insulin Glulisine [Apidra] 10 units SQ TID #1000 units 05/28/16 Unknown Rx Montelukast [Singulair] 10 mg PO QPM #30 tablet 05/28/16 Unknown Rx Potassium Chloride [K-Dur] 20 meq PO QDAY #30 tablet 05/28/16 Unknown Rx ED Review of Systems ROS: Stated complaint: DIABETES, OUT OF INSULIN Other details as noted in HPI Constitutional: denies: chills, fever, malaise Eyes: denies: eye pain ENT: denies: ear pain, throat pain, congestion Respiratory: denies: cough, shortness of breath, wheezing Cardiovascular: denies: chest pain, palpitations Endocrine: no symptoms reported Gastrointestinal: denies: abdominal pain, nausea, vomiting Neurological: denies: headache, weakness, numbness, paresthesias Physical Exam - Physical Exam Vital Signs: Vital Signs 05/28/16 10:24 Temperature 98.1 F Pulse Rate 87 Respiratory 20 Rate Blood Pressure 141/92 O2 Sat by Pulse 99 Oximetry Physical Exam: GENERAL: The patient is well-developed and well-nourished. Patient is in NAD. HEAD: Normocephalic. Atraumatic. EYES: PERRL. EARS: External auditory canals and tympanic membranes clear; hearing grossly intact. NOSE: Normal nasal mucosa with no nasal discharge. Tenderness to palpation of right maxillary sinus. THROAT: No erythema, swelling or exudates. NECK: Supple, nontender, without lymphadenopathy. CHEST/LUNGS: Clear to auscultation throughout. HEART/CARDIOVASCULAR: Regular rate and rhythm. No murmurs, rubs or gallops. ABDOMEN: Abdomen is soft, nontender. Bowel sounds normoactive. No guarding or rebound tenderness. EXTREMITIES: Peripheral pulses intact. Capillary refill less than 2 seconds. NEURO: Alert and oriented x 3. Normal gait. ED Course Vital Signs 05/28/16 10:24 Temperature 98.1 F Pulse Rate 87 Respiratory 20 Rate Blood Pressure 141/92 O2 Sat by Pulse 99 Oximetry ED Medical Decision Making - Lab Data Vital Signs 05/28/16 10:24 Temperature 98.1 F Pulse Rate 87 Respiratory 20 Rate Blood Pressure 141/92 O2 Sat by Pulse 99 Oximetry - Medical Decision Making 50-year-old female presents today for medication refill and right-sided maxillary sinusitis. Patient is in no acute distress at this time. She will be discharged home and is encouraged to follow up with a primary care provider. All the requested medications have been refilled and she will also be sent home on Z-Ethan. She is encouraged to return to the emergency room for any new or worsening symptoms. Critical care attestation.: If time is entered above; I have spent that time in minutes in the direct care of this critically ill patient, excluding procedure time. ED Disposition Clinical Impression: Medication refill Sinusitis Qualifiers: Sinusitis location: maxillary Chronicity: acute Recurrence: not specified as recurrent Qualified Code(s): J01.00 - Acute maxillary sinusitis, unspecified Disposition: DISCHARGED TO HOME OR SELFCARE Is pt being admited?: No Does the pt Need Aspirin: No Condition: Stable Instructions: Sinusitis (ED) Additional Instructions: Follow-up with primary care provider. Return to the emergency department if symptoms worsen. Prescriptions: Apixaban [Eliquis] 5 mg PO BID #60 tablet Azithromycin [Zithromax Z-ETHAN] 250 mg PO QDAY #6 tablet Hydrochlorothiazide [HCTZ] 25 mg PO QDAY #30 tablet Insulin Glargine [Lantus VIAL] 30 units SQ BID #2000 units Insulin Glulisine [Apidra] 10 units SQ TID #1000 units Montelukast [Singulair] 10 mg PO QPM #30 tablet Potassium Chloride [K-Dur] 20 meq PO QDAY #30 tablet Referrals: PRIMARY CARE, [Primary Care Provider] - 3-5 Days [facility] [Outside] - 3-5 Days Forms: Work/School Release Form(ED) Time of Disposition: 11:33
== END 2016-05-28 11:50 | disposition home or self-care (01) ==
LOC: ED 10:17
DX: J01.00 Acute maxillary sinusitis, unspecified (principal); I10 Essential (primary) hypertension; E11.9 Type 2 diabetes mellitus without complications; J45.909 Unspecified asthma, uncomplicated; M19.90 Unspecified osteoarthritis, unspecified site; Z79.4 Long term (current) use of insulin; Z88.0 Allergy status to penicillin
CPT/HCPCS: 82962; 99282

== ENCOUNTER 2016-08-22 16:51 | Inpatient (IN) | payer OTHER ==
--- NOTE | 2016-08-22 18:50 | Emergency Department Report ---
Entered by ISSA D ELA TORRE, acting as scribe for EMIR BURK PA. Chief Complaint: Hyperglycemia Stated Complaint: SOB/SUGAR HIGH Time Seen by Provider: 08/22/16 18:20 - HPI History of Present Illness: 50 year old female with PMHx of HTN and DM presents to the ED c/o elevated hyperglycemia for 2 days. Patient reports aggravation of SOB when she ambulates and rest. Patient states that she had similar symptoms in the past. She reports SOB, mild abd pain, frequency, dehydration, and blurry vision, but denies chest pain, chills, fever, numbness, and tingling. - ROS Review of Systems: reports SOB, mild abd pain, frequency, dehydration, and blurry vision Denies chest pain, chills, fever, numbness, and tingling. - Exam Vital Signs: Vital Signs 08/22/16 16:55 Temperature 98.4 F Pulse Rate 114 H Respiratory 22 Rate Blood Pressure 159/99 O2 Sat by Pulse 100 Oximetry Physical Exam: Constitutional: Non toxic appearing, NAD. Cardiovascular: Normal rate and rhythm with normal S1/S2 sounds. Nontender to palpation. Respiratory: No respiratory distress. Lung sounds clear to auscultation bilaterally. Abdomen: Soft, nontender, and nondistended. Positive bowel sounds. MSE screening note: Focused history and physical exam performed. Due to findings the following was ordered: ED Medical Decision Making - Medical Decision Making Hyperglycemia protocol ordered. Shortness of breath protocol ordered. Patient to be seen by ED physician. ED Disposition for MSE Condition: Stable This documentation as recorded by the scribe,ISSA DE LA TORRE,accurately reflects the service I personally performed and the decisions made by WM lundberg OYINLOLA A, PA.
--- NOTE | 2016-08-22 19:22 | XRay Report ---
FINAL REPORT PROCEDURE: XR CHEST ROUTINE 2V TECHNIQUE: PA and lateral chest radiographs were obtained. CPT 17213 HISTORY: Shortness of breath COMPARISON: No prior studies are available for comparison. FINDINGS: Heart: Normal contour. Mediastinum/Vessels: Normal contour. Lungs/Pleural space: No infiltrate, effusion, or pneumothorax. Bony thorax: No acute osseous abnormality. Other: IMPRESSION: No radiographic evidence of acute abnormality.
[2016-08-22 19:33] LABS: Bacteria,Urine 1+ /HPF (Negative); Bilirubin,Urine NEG (Negative); Blood,Urine SM (Negative); Ketones,Urine TR mg/dL (Negative); Leukocyte Esterase,Urine SM (Negative); Nitrite,Urine NEG (Negative); Urobilinogen,Urine < 2.0 mg/dL (<2.0)
[2016-08-22 19:34] LABS: Basophils % (Auto) 0.6 % (0.0-1.8); Eosinophils % (Auto) 0.6 % (0.0-4.3); Hemoglobin 10.5 gm/dl (10.1-14.3); Mean Corpuscular HGB Conc 31 % (30-34); Mean Corpuscular Volume 77 fl (79-97); Platelet Count 406 K/mm3 (140-440); Red Cell Distribution Width 18.2 % (13.2-15.2); White Blood Count 8.8 K/mm3 (4.5-11.0)
[2016-08-22 19:35] LABS: Anion Gap 22 mmol/L; BUN/Creatinine Ratio 11.11; Blood Urea Nitrogen 10 mg/dL (7-17); Calcium 9.9 mg/dL (8.4-10.2); Carbon Dioxide 22 mmol/L (22-30); Chloride 86.1 mmol/L (98-107); Potassium 4.3 mmol/L (3.6-5.0); Sodium 126 mmol/L (137-145)
[2016-08-22 19:37] LABS: Mean Corpuscular Hemoglobin 24 pg (28-32)
[2016-08-22 19:41] LABS: Glucose 716 mg/dL (65-100)
[2016-08-22] MEDS ORDERED: NACL 0.9% 1000 ML 1,000 ML IV ONE ×2 (20:16→20:17)
[2016-08-22] MEDS ORDERED: LOVENOX SUB-Q ONE (20:26)
--- NOTE | 2016-08-22 21:12 | Emergency Department Report ---
- General Chief complaint: Hyperglycemia Stated complaint: SOB/SUGAR HIGH Time Seen by Provider: 08/22/16 18:27 Source: patient, old records reviewed Mode of arrival: Ambulatory Limitations: No Limitations - History of Present Illness Initial comments: 50-year-old female with a past medical history insulin dependent diabetes, arthritis, asthma, pulmonary embolism, DVT, and hypertension presents to the hospital complains of elevated glucose and shortness of breath. Patient was just admitted here Mar 2016 and diagnosed with saddle PE and DVT status post long distance car ride from [place]. Since moving here from [place] patient does not have local insurance. She was only able to take Eliquis 2 months and has been off for the past 5 months. She also ran out of her Lantus several months ago and has only been able to take her Apridra. Patient complains of polyuria, increased thirst, and dry mouth with intermittent cramping to the legs and fatigue. Mild dysuria reported. The last week patient 's been complaining of worsening dyspnea on exertion. No pain reported currently. - Related Data Previous Rx's Medication Instructions Recorded Last Taken Type predniSONE [Deltasone] 3 tab PO QDAY #15 tab 03/31/16 Unknown Rx ALBUTEROL Inhaler [ProAir HFA 1 puff IH QID PRN #1 can 04/05/16 Unknown Rx Inhaler] Fluticasone [Flonase] 1 spray NS QDAY #1 bottle 04/05/16 Unknown Rx oxyCODONE /ACETAMINOPHEN [Percocet 1 tab PO Q6H PRN #12 tablet 04/05/16 Unknown Rx 5/325 mg] Apixaban [Eliquis] 5 mg PO BID #60 tablet 05/28/16 Unknown Rx Azithromycin [Zithromax Z-ETHAN] 250 mg PO QDAY #6 tablet 05/28/16 Unknown Rx Hydrochlorothiazide [HCTZ] 25 mg PO QDAY #30 tablet 05/28/16 Unknown Rx Insulin Glargine [Lantus VIAL] 30 units SQ BID #2000 units 05/28/16 Unknown Rx Insulin Glulisine [Apidra] 10 units SQ TID #1000 units 05/28/16 Unknown Rx Montelukast [Singulair] 10 mg PO QPM #30 tablet 05/28/16 Unknown Rx Potassium Chloride [K-Dur] 20 meq PO QDAY #30 tablet 05/28/16 Unknown Rx Allergies Allergy/AdvReac Type Severity Reaction Status Date / Time Penicillins Allergy Hives Verified 03/31/16 14:35 ED Review of Systems ROS: Stated complaint: SOB/SUGAR HIGH Other details as noted in HPI Comment: All other systems reviewed and negative Other: Constitutional: No fevers chills Eyes: No eye pain visual changes ENT: No ear pain or throat pain Neck: Denies pain Respiratory: Denies cough wheezing Cardiovascular: Denies chest pain, palpitations, syncope GI: Denies abdominal pain, nausea, vomiting, diarrhea :as per hpi Musculoskeletal: Denies back pain, joint swelling Skin: Denies rash, lesions, erythema Neurologic: Denies headache, numbness, weakness Psychiatric: Denies suicidal ideation, hallucinations ED Past Medical Hx - Past Medical History Previous Medical History?: Yes Hx Hypertension: Yes Hx Congestive Heart Failure: No Hx Diabetes: Yes Hx Deep Vein Thrombosis: Yes (March 2016) Hx Pulmonary Embolism: Yes (March 2016) Hx Arthritis: Yes Hx Asthma: Yes Hx COPD: No - Surgical History Past Surgical History?: Yes Additional Surgical History: - Social History Smoking Status: Never Smoker Substance Use Type: None - Medications Home Medications: Home Medications Medication Instructions Recorded Confirmed Last Taken Type predniSONE [Deltasone] 3 tab PO QDAY #15 tab 03/31/16 Unknown Rx ALBUTEROL Inhaler [ProAir HFA 1 puff IH QID PRN #1 can 04/05/16 Unknown Rx Inhaler] Fluticasone [Flonase] 1 spray NS QDAY #1 bottle 04/05/16 Unknown Rx oxyCODONE /ACETAMINOPHEN [Percocet 1 tab PO Q6H PRN #12 tablet 04/05/16 Unknown Rx 5/325 mg] Apixaban [Eliquis] 5 mg PO BID #60 tablet 05/28/16 Unknown Rx Azithromycin [Zithromax Z-ETHAN] 250 mg PO QDAY #6 tablet 05/28/16 Unknown Rx Hydrochlorothiazide [HCTZ] 25 mg PO QDAY #30 tablet 05/28/16 Unknown Rx Insulin Glargine [Lantus VIAL] 30 units SQ BID #2000 units 05/28/16 Unknown Rx Insulin Glulisine [Apidra] 10 units SQ TID #1000 units 05/28/16 Unknown Rx Montelukast [Singulair] 10 mg PO QPM #30 tablet 05/28/16 Unknown Rx Potassium Chloride [K-Dur] 20 meq PO QDAY #30 tablet 05/28/16 Unknown Rx ED Physical Exam - General Limitations: No Limitations - Other Other exam information: General: No limitations, patient is alert in no acute distress Head exam: Atraumatic, normocephalic Eyes exam: Normal appearance, pupils equal reactive to light, extraocular movements intact ENT: Dry mucous membrane, normal oropharynx Neck exam: Normal inspection, full range of motion, no meningismus nontender Respiratory exam: Clear to auscultation bilateral, no wheezes, rales, crackles Cardiovascular: Normal rate and rhythm, normal heart sounds Abdomen: Soft, nondistended, and nontender, with normal bowel sounds, no rebound, or guarding Extremity: Full range of motion normal inspection no deformity, no calf tenderness or edema Back: Normal Inspection, full range of motion, no tenderness Neurologic: Alert, oriented x3, cranial nerves intact, no motor or sensory deficit Psychiatric: normal affect, normal mood Skin: Warm, dry, intact ED Course Vital Signs 08/22/16 16:55 Temperature 98.4 F Pulse Rate 114 H Respiratory 22 Rate Blood Pressure 159/99 O2 Sat by Pulse 100 Oximetry ED Medical Decision Making - Lab Data Result diagrams: 08/22/16 19:03 08/22/16 19:03 Lab Results 08/22/16 08/22/16 08/22/16 Range/Units 16:57 18:37 19:03 WBC (4.5-11.0) K/mm3 RBC (3.65-5.03) M/mm3 Hgb (10.1-14.3) gm/dl Hct (30.3-42.9) % MCV (79-97) fl MCH (28-32) pg MCHC (30-34) % RDW (13.2-15.2) % Plt Count (140-440) K/mm3 Lymph % (Auto) (13.4-35.0) % [place] % (Auto) (0.0-7.3) % Eos % (Auto) (0.0-4.3) % Baso % (Auto) (0.0-1.8) % Lymph # (1.2-5.4) K/mm3 [place] # (0.0-0.8) K/mm3 Eos # (0.0-0.4) K/mm3 Baso # (0.0-0.1) K/mm3 Seg Neutrophils % (40.0-70.0) % Seg Neutrophils # (1.8-7.7) K/mm3 VBG pH (7.320-7.420) Sodium (137-145) mmol/L Potassium (3.6-5.0) mmol/L Chloride (98-107) mmol/L Carbon Dioxide (22-30) mmol/L Anion Gap mmol/L BUN (7-17) mg/dL Creatinine (0.7-1.2) mg/dL Estimated GFR ml/min BUN/Creatinine Ratio % Glucose (65-100) mg/dL POC Glucose > 500 H (70-105) Calcium (8.4-10.2) mg/dL Troponin T (0.00-0.029) ng/mL HCG, Qual Negative (Negative) Urine Color Straw (Yellow) Urine Turbidity Clear (Clear) Urine pH 6.0 (5.0-7.0) Ur Specific [place] 1.029 (1.003-1.030) Urine Protein 30 mg/dl (Negative) mg/dL Urine Glucose (UA) >=500 (Negative) mg/dL Urine Ketones Tr (Negative) mg/dL Urine Blood Sm (Negative) Urine Nitrite Neg (Negative) Urine Bilirubin Neg (Negative) Urine Urobilinogen < 2.0 (<2.0) mg/dL Ur Leukocyte Esterase Sm (Negative) Urine WBC (Auto) 5.0 (0.0-6.0) /HPF Urine RBC (Auto) 8.0 (0.0-6.0) /HPF U Epithel Cells (Auto) 2.0 (0-13.0) /HPF Urine Bacteria (Auto) 1+ (Negative) /HPF 08/22/16 08/22/16 08/22/16 Range/Units 19:03 19:03 19:03 WBC 8.8 (4.5-11.0) K/mm3 RBC 4.40 (3.65-5.03) M/mm3 Hgb 10.5 (10.1-14.3) gm/dl Hct 34.0 (30.3-42.9) % MCV 77 L (79-97) fl MCH 24 L (28-32) pg MCHC 31 (30-34) % RDW 18.2 H (13.2-15.2) % Plt Count 406 (140-440) K/mm3 Lymph % (Auto) 32.9 (13.4-35.0) % [place] % (Auto) 10.0 H (0.0-7.3) % Eos % (Auto) 0.6 (0.0-4.3) % Baso % (Auto) 0.6 (0.0-1.8) % Lymph # 2.9 (1.2-5.4) K/mm3 [place] # 0.9 H (0.0-0.8) K/mm3 Eos # 0.1 (0.0-0.4) K/mm3 Baso # 0.1 (0.0-0.1) K/mm3 Seg Neutrophils % 55.9 (40.0-70.0) % Seg Neutrophils # 4.9 (1.8-7.7) K/mm3 VBG pH 7.419 (7.320-7.420) Sodium 126 L (137-145) mmol/L Potassium 4.3 (3.6-5.0) mmol/L Chloride 86.1 L (98-107) mmol/L Carbon Dioxide 22 (22-30) mmol/L Anion Gap 22 mmol/L BUN 10 (7-17) mg/dL Creatinine 0.9 (0.7-1.2) mg/dL Estimated GFR > 60 ml/min BUN/Creatinine Ratio 11.11 % Glucose 716 H* (65-100) mg/dL POC Glucose (70-105) Calcium 9.9 (8.4-10.2) mg/dL Troponin T < 0.010 (0.00-0.029) ng/mL HCG, Qual (Negative) Urine Color (Yellow) Urine Turbidity (Clear) Urine pH (5.0-7.0) Ur Specific [place] (1.003-1.030) Urine Protein (Negative) mg/dL Urine Glucose (UA) (Negative) mg/dL Urine Ketones (Negative) mg/dL Urine Blood (Negative) Urine Nitrite (Negative) Urine Bilirubin (Negative) Urine Urobilinogen (<2.0) mg/dL Ur Leukocyte Esterase (Negative) Urine WBC (Auto) (0.0-6.0) /HPF Urine RBC (Auto) (0.0-6.0) /HPF U Epithel Cells (Auto) (0-13.0) /HPF Urine Bacteria (Auto) (Negative) /HPF - EKG Data -: EKG Interpreted by Me (nsr rate 91, no stemi) - Radiology Data Radiology results: image reviewed (chest x-ray: No acute findings) - Medical Decision Making Plans admit patient to the hospital. Insulin and IV fluids initiated. No signs of DKA at this time. Patient has a history of saddle PE in complains of dyspnea and exertion there are any signs of hypoxia at this time. Lovenox initiated and Eliquis ordered. I feel patient would benefit from admission for further management treatment as well as social service consult to help patient obtain her outpatient medication - Differential Diagnosis DKA, hyperglycemia, dehydration, renal sufficiency, persistent PE Critical Care Time: No Critical care attestation.: If time is entered above; I have spent that time in minutes in the direct care of this critically ill patient, excluding procedure time. ED Disposition Clinical Impression: Diabetes mellitus with hyperglycemia, BETANCOURT (dyspnea on exertion), Hx of pulmonary embolus, Noncompliance with medication regimen Disposition: OP ADMIT IP TO THIS HOSP Is pt being admited?: Yes Condition: Stable Time of Disposition: 21:11 (Dr Horne/hosp)
[2016-08-22] MEDS ORDERED: TORADOL IV ONE (22:01)
[2016-08-22] MEDS: ELIQUIS PO SCH (22:18)
[2016-08-22] MEDS ORDERED: D50W (25GM) IV PRN (22:59)
[2016-08-22] MEDS ORDERED: ZOFRAN IV PRN (23:01)
[2016-08-22] MEDS ORDERED: TYLENOL PO PRN (23:02)
[2016-08-22] MEDS ORDERED: NACL 0.9% 1000 ML 1,000 ML IV SCH (23:45)
--- NOTE | 2016-08-23 05:16 | History and Physical Report ---
History of Present Illness Date of examination: 08/22/16 Date of admission: 08/22/16 23:52 Chief complaint: Chief complaint is shortness of breath,other complaining include elevated blood sugar History of present illness: History of present illness, patient is a 50 year old female who said she moved over to this area nearly and couldn't get her insulin for the treatment of her diabetes and was having symptoms of weakness, increased thirst, polyuria and shortness of breath. Patient denied history of chest pain, denied history of fever or chills and also denied history of nausea vomiting and presented to the emergency room where her blood sugar was found to be in the range of 700 Past History Past Medical History: arthritis, diabetes, DVT, hypertension, other (ASTHMA) Past Surgical History: Social history: no significant social history Family history: no significant family history Medications and Allergies Allergies Allergy/AdvReac Type Severity Reaction Status Date / Time Penicillins Allergy Hives Verified 03/31/16 14:35 Home Medications Medication Instructions Recorded Confirmed Last Taken Type predniSONE [Deltasone] 3 tab PO QDAY #15 tab 03/31/16 Unknown Rx ALBUTEROL Inhaler [ProAir HFA 1 puff IH QID PRN #1 can 04/05/16 Unknown Rx Inhaler] Fluticasone [Flonase] 1 spray NS QDAY #1 bottle 04/05/16 Unknown Rx oxyCODONE /ACETAMINOPHEN [Percocet 1 tab PO Q6H PRN #12 tablet 04/05/16 Unknown Rx 5/325 mg] Apixaban [Eliquis] 5 mg PO BID #60 tablet 05/28/16 Unknown Rx Azithromycin [Zithromax Z-ETHAN] 250 mg PO QDAY #6 tablet 05/28/16 Unknown Rx Hydrochlorothiazide [HCTZ] 25 mg PO QDAY #30 tablet 05/28/16 Unknown Rx Insulin Glargine [Lantus VIAL] 30 units SQ BID #2000 units 05/28/16 Unknown Rx Insulin Glulisine [Apidra] 10 units SQ TID #1000 units 05/28/16 Unknown Rx Montelukast [Singulair] 10 mg PO QPM #30 tablet 05/28/16 Unknown Rx Potassium Chloride [K-Dur] 20 meq PO QDAY #30 tablet 05/28/16 Unknown Rx Active Meds: Active Medications Acetaminophen (Tylenol) 650 mg PO Q4H PRN PRN Reason: For Pain/Fever/Headache Apixaban (Eliquis) 5 mg PO Q12HR LINDA PRN Reason: Protocol Last Admin: 08/22/16 22:18 Dose: 5 mg Dextrose (D50w (25gm)) 50 ml IV PRN PRN PRN Reason: Hypoglycemia Sodium Chloride (Nacl 0.9% 1000 Ml) 1,000 mls @ 100 mls/hr IV DIRECT LINDA Insulin Human Regular (Novolin R) 0 units SUB-Q AC LINDA PRN Reason: Protocol Insulin Human Regular (Novolin R) 0 units SUB-Q QHS LINDA PRN Reason: Protocol Ondansetron HCl (Zofran) 4 mg IV Q6H PRN PRN Reason: Nausea And Vomiting Review of Systems Constitutional: weakness, no weight gain, no fever, no chills, no fatigue, no malaise, no lethargy, no daytime sleepiness Eyes: bilateral: other (NO BILATERAL EYE SYMPTOMS) Ears, nose, mouth and throat: no ear pain, no ear discharge, no tinnitis, no decreased hearing, no nose pain, no nasal congestion, no nasal discharge, no sinus pressure, no bleeding gums, no dental pain, no mouth pain, no dysphagia, no hoarseness, no sore throat, no swelling in mouth, no swelling in throat, no post-nasal drip, no headache, no vertigo, no pain front of neck, no neck fullness/pressure Breasts: deferred Cardiovascular: high blood pressure, no chest pain, no orthopnea, no palpitations, no rapid/irregular heart beat, no edema, no lightheadedness, no shortness of breath, no dyspnea on exertion, no paroxysmal nocturnal dyspnea, no decreased exercise tolerance Respiratory: shortness of breath, no cough, no cough with sputum, no hemoptysis , no dyspnea on exertion, no congestion, no wheezing, no respiratory infections Gastrointestinal: no abdominal pain, no nausea, no vomiting, no diarrhea, no change in bowel habits, no hematemesis, no loss of appetite, no early satiety, no jaundice, no dyspepsia/bloating Genitourinary Female: no pelvic pain, no flank pain, no mixed incontinence, no difficulty voiding, no mood problems Rectal: no pain, no itching, no flatulence Musculoskeletal: no neck stiffness, no neck pain, no low back pain, no morning stiffness, no muscle weakness, no myalgias, no frequent falls, no prior amputations Integumentary: no rash, no pruritis, no redness, no sores, no wounds, no jaundice, no bullae, no lesions, no darkening of skin, no depigmentation, no acne, no dryness, no change in hair/nails, no brittle nails, no striae, no hirsutism Neurological: no paralysis, no weakness, no parathesias, no numbness, no tingling, no syncope, no tremors, no lack of coordination, no headaches, no migraines, no convulsions, no aphasia, no change in speech, no change in mentation, no confusion, no memory loss, no changes in smell/taste, no motor disturbance, no sensory deficit, no double vision, no loss of vision, no hearing difficulties, no burning pain Psychiatric: no insomnia, no hypersomnia, no disorientation, no hallucinations, no paranoia, no depression, no confusion Endocrine: no heat intolerance, no polyphagia, no polydipsia, no polyuria, no flushing, no weight change, no increase in ring/shoe/hat size Hematologic/Lymphatic: no easy bruising, no easy bleeding, no lymphadenopathy, no lymphedema, no thrombophilia Allergic/Immunologic: no urticaria, no allergic rhinitis, no persistent infections, no anaphylaxis Exam - Constitutional Vitals: Temp Pulse Resp BP Pulse Ox 98.5 F 91 H 21 156/70 98 08/23/16 01:00 08/23/16 01:00 08/23/16 01:00 08/23/16 01:00 08/23/16 01:00 General appearance: Present: no acute distress - EENT Eyes: Present: PERRL ENT: hearing intact, clear oral mucosa, no oropharyngeal erythema, no edentulous - Neck Neck: Present: supple, normal ROM. Absent: masses or JVD, carotid bruits - Cardiovascular Rhythm: regular Heart Sounds: Present: S1 & S2. Absent: gallop, systolic murmur, diastolic murmur, click - Extremities Extremities: no ischemia, No edema Peripheral Pulses: within normal limits - Abdominal General gastrointestinal: Present: soft, non-tender, non-distended. Absent: tender, distended, rigid, hepatomegaly, splenomegaly Female genitourinary: Present: deferred - Integumentary Integumentary: Present: clear, warm, dry - Musculoskeletal Musculoskeletal: strength equal bilaterally - Psychiatric Psychiatric: appropriate mood/affect Results - Labs CBC & Chem 7: 08/22/16 19:03 08/22/16 19:03 Labs: Laboratory Last Values WBC 8.8 K/mm3 (4.5-11.0) 08/22/16 19: RBC 4.40 M/mm3 (3.65-5.03) 08/22/16 19:03 Hgb 10.5 gm/dl (10.1-14.3) 08/22/16 19: Hct 34.0 % (30.3-42.9) 08/22/16 19: MCV 77 fl (79-97) L 08/22/16 19:03 MCH 24 pg (28-32) L 08/22/16 19: MCHC 31 % (30-34) 08/22/16 19: RDW 18.2 % (13.2-15.2) H 08/22/16 19:03 Plt Count 406 K/mm3 (140-440) 08/22/16 19:03 Lymph % (Auto) 32.9 % (13.4-35.0) 08/22/16 19:03 [place] % (Auto) 10.0 % (0.0-7.3) H 08/22/16 19:03 Eos % (Auto) 0.6 % (0.0-4.3) 08/22/16 19:03 Baso % (Auto) 0.6 % (0.0-1.8) 08/22/16 19:03 Lymph # 2.9 K/mm3 (1.2-5.4) 08/22/16 19:03 [place] # 0.9 K/mm3 (0.0-0.8) H 08/22/16 19:03 Eos # 0.1 K/mm3 (0.0-0.4) 08/22/16 19:03 Baso # 0.1 K/mm3 (0.0-0.1) 08/22/16 19: Seg Neutrophils % 55.9 % (40.0-70.0) 08/22/16 19: Seg Neutrophils # 4.9 K/mm3 (1.8-7.7) 08/22/16 19:03 VBG pH 7.419 (7.320-7.420) 08/22/16 19:03 Sodium 126 mmol/L (137-145) L 08/22/16 19:03 Potassium 4.3 mmol/L (3.6-5.0) 08/22/16 19:03 Chloride 86.1 mmol/L (98-107) L 08/22/16 19:03 Carbon Dioxide 22 mmol/L (22-30) 08/22/16 19:03 Anion Gap 22 mmol/L 08/22/16 19:03 BUN 10 mg/dL (7-17) 08/22/16 19:03 Creatinine 0.9 mg/dL (0.7-1.2) 08/22/16 19:03 Estimated GFR > 60 ml/min 08/22/16 19:03 BUN/Creatinine Ratio 11.11 % 08/22/16 19:03 Glucose 716 mg/dL (65-100) H* 08/22/16 19:03 POC Glucose 346 (70-105) H 08/22/16 22:09 Calcium 9.9 mg/dL (8.4-10.2) 08/22/16 19:03 Troponin T < 0.010 ng/mL (0.00-0.029) 08/22/16 19:03 HCG, Qual Negative (Negative) 08/22/16 19:03 Urine Color Straw (Yellow) 08/22/16 18:37 Urine Turbidity Clear (Clear) 08/22/16 18:37 Urine pH 6.0 (5.0-7.0) 08/22/16 18:37 Ur Specific [place] 1.029 (1.003-1.030) 08/22/16 18:37 Urine Protein 30 mg/dl mg/dL (Negative) 08/22/16 18:37 Urine Glucose (UA) >=500 mg/dL (Negative) 08/22/16 18:37 Urine Ketones Tr mg/dL (Negative) 08/22/16 18:37 Urine Blood Sm (Negative) 08/22/16 18:37 Urine Nitrite Neg (Negative) 08/22/16 18:37 Urine Bilirubin Neg (Negative) 08/22/16 18:37 Urine Urobilinogen < 2.0 mg/dL (<2.0) 08/22/16 18:37 Ur Leukocyte Esterase Sm (Negative) 08/22/16 18:37 Urine WBC (Auto) 5.0 /HPF (0.0-6.0) 08/22/16 18:37 Urine RBC (Auto) 8.0 /HPF (0.0-6.0) 08/22/16 18:37 U Epithel Cells (Auto) 2.0 /HPF (0-13.0) 08/22/16 18:37 Urine Bacteria (Auto) 1+ /HPF (Negative) 08/22/16 18:37 Assessment and Plan - Patient Problems (1) Diabetes mellitus with hyperglycemia Current Visit: Yes Status: Acute Qualifiers: Diabetes mellitus type: D 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 Patient will be on when necessary medications like IV Zofran for nausea vomiting and Tylenol by mouth for fever or headache
[2016-08-23 05:39] LABS: Anion Gap 20 mmol/L; BUN/Creatinine Ratio 14.28; Blood Urea Nitrogen 10 mg/dL (7-17); Calcium 9.1 mg/dL (8.4-10.2); Carbon Dioxide 21 mmol/L (22-30); Potassium 4.4 mmol/L (3.6-5.0); Sodium 130 mmol/L (137-145)
[2016-08-23 05:52] LABS: Glucose 598 mg/dL (65-100)
[2016-08-23] MEDS ORDERED: PROAIR IH PRN (09:06)
[2016-08-23] MEDS ORDERED: DELTASONE PO SCH (10:00)
[2016-08-23] MEDS ORDERED: ELIQUIS PO SCH (10:00)
[2016-08-23] MEDS ORDERED: NON-FORMULARY (Insulin Glargine 30 UNITS) SQ SCH (10:00)
[2016-08-23] MEDS: ELIQUIS PO SCH (10:14)
[2016-08-23] MEDS ORDERED: PROVENTIL IH PRN (12:10)
[2016-08-23] MEDS: K-DUR PO SCH (13:31)
[2016-08-23] MEDS: HCTZ PO SCH (13:31)
[2016-08-23] MEDS ORDERED: LEVEMIR SUB-Q SCH (14:00)
[2016-08-23 14:31] LABS: INR 1.09 (0.87-1.13)
--- NOTE | 2016-08-23 15:09 | Admit Criteria Form ---
Admission Criteria Documentation: DIABETES Clinical Indications for Admission to Inpatient Care (Place 'X' for any and all applicable criteria): Admission is indicated by presence of ALL (if I & II) or ANY ONE (if III or IV) of the following (1)(2)(3)(4): [ X]I. Diabetes is uncontrolled as indicated by ANY ONE of the following: [ ]a) Diabetic ketoacidosis as indicated by ALL of the following (8): [ ]i) Hyperglycemia (eg, plasma glucose greater than 200 mg/ dL (11.1 mmol/L)) [ ]ii) Acidosis (eg, arterial pH less than 7.30, serum bicarbonate level less than 15 mEq/L (mmol/L)) [ ]iii) Moderate ketonuria or ketonemia [ ]b) Hyperglycemic hyperosmolar state as indicated by ALL of the following(9)(10): [ ]i) Neurologic dysfunction (eg, stupor, coma, hemiparesis , seizure)(13) [ ]ii) Plasma glucose greater than 600 mg/dL (33.3 mmol/L) [ ]iii) Serum osmolality greater than 320 mOsm/kg (mmol/kg) [X ]c) Severe signs or symptoms secondary to hyperglycemia indicated by ANY ONE of the following: [ ]i) Altered mental status(10) [ ]ii) Significant hypovolemia or dehydration [ ]iii) Intractable nausea or vomiting [ ]iv) Unexplained fever or severe infection [X ]v) Severe electrolyte abnormality (eg, hypokalemia, hyperkalemia, hypernatremia) [ X]XII. Management at other levels of care (Also use Diabetes: Observation Care as appropriate) is not feasible because of ANY ONE of the following: [X ]a) Condition was not adequately corrected with treatment at other levels of care. [ ]b) Treatment at other levels of care is not appropriate because of condition severity (eg, hyperosmolar coma). [ ]III. Contraindications and/or Inappropriate clinical situations for Observational Care in patients with Diabetes, when ANY ONE of the following is required: [ ]a) Patient require specific diagnostic workup or therapeutic intervention 22 [ ]b) Patient with abnormal vital signs or altered mental status 23 [ ]IV. General contraindications and/or Inappropriate clinical situations for Observational Care in patients with Diabetes, when ANY ONE of the following is required: [ ]a) Prediction of prolongation of LOS based on ANY ONE of the following may be considered as a contraindication for observational care 2, 3, 4, 5, 6, 7, 8, 9, 10, 11 [ ]i) Age > 65 yrs. [ ]ii) Patient arriving by ambulance [ ]iii) Patient with high acuity [ ]iv) Patient requiring vital sign monitoring [ ]v) Patient on IV medication [ ]b) Systolic blood pressures 180mmHg 3,12 [ ]c) Patient with altered mental status including delirium and other alteration of consciousness, (3) [ ]d) Patient whose discharge disposition will be to a retirement home or rehabilitation home should not be managed in Emergency Department Observation Unit. CMS rule requires 3 days hospital stay before such placement.3,13 [ ]e) Patient with failure to thrive due to broad array of etiologies 3,16,17 [ ]f) Inability to ambulate 3,14 Extended stay beyond goal length of stay may be needed for(3)(20): [ ]a) Treatment of precipitating causes [ ]b) Development of hypoglycemia [ ]c) Complications of treatment [ ]d) Complications of decompensated diabetes (eg, acute gastric dilatation, persistent metabolic or neurologic derangement) [ ]e) Active Comorbidities [ ]f) Older patients( 65 years or older) The original [employer] content created by [employer] has been revised. The portions of the content which have been revised are identified through the use of italic text or in bold,and [facility] has neither reviewed nor approved the modified material. All other unmodified content is copyright [employer]. Please see references footnoted in the original [facility] edition 2016 Admission Criteria Met: Yes
[2016-08-23] MEDS ORDERED: COUMADIN PO SCH (17:00)
[2016-08-23] MEDS: FLONASE NS SCH (17:30)
--- NOTE | 2016-08-24 08:27 | Discharge Summary ---
Providers - Providers Date of Admission: 08/22/16 23:52 Date of discharge: 08/24/16 Attending physician: KIMBERLY BHANDARI Primary care physician: COPY LATHE OPERATOR Hospitalization Reason for admission: hyperglycemia Condition: Stable Hospital course: 50-year-old female with a past medical history insulin dependent diabetes, arthritis, asthma, pulmonary embolism, DVT, and hypertension presents to the hospital complains of elevated glucose and shortness of breath. Patient was just admitted here Mar 2016 and diagnosed with saddle PE and DVT status post long distance car ride from [place]. Since moving here from [place] patient does not have local insurance. She was only able to take Eliquis 2 months and has been off for the past 5 months. She also ran out of her Lantus several months ago and has only been able to take her Apridra. Patient complains of polyuria, increased thirst, and dry mouth with intermittent cramping to the legs and fatigue. Mild dysuria reported. Patient was admitted with asthma exacerbation and hyperglycemia. Patient's problems are associated with medical noncompliance due to funding/lack of insurance. Her medications were changed so that she could potentially afford them and discharged. Patient will be discharged with 70/30 insulin twice a day and Coumadin. Patient will also receive prescriptions for inhaler. Patient's blood sugar and respiratory status stabilized. Dedicated discharge time 32 minutes. Disposition: - TO HOME OR SELFCARE Time spent for discharge: 32 - Discharge Diagnoses (1) BETANCOURT (dyspnea on exertion) Status: Acute (2) Diabetes mellitus with hyperglycemia Status: Acute Qualifiers: Diabetes mellitus type: D Diabetes mellitus group home insulin use: D (3) Hx of pulmonary embolus Status: Acute (4) Noncompliance with medication regimen Status: Acute Core Measure Documentation - Palliative Care Palliative Care/ Comfort Measures: Not Applicable - Core Measures Any of the following diagnoses?: none Exam - Constitutional Vitals: Temp Pulse Resp BP Pulse Ox 98.3 F 77 20 96/56 98 08/24/16 04:20 08/24/16 04:20 08/24/16 04:20 08/24/16 04:20 08/24/16 04:20 General appearance: Present: no acute distress, well-nourished - EENT Eyes: Present: PERRL ENT: hearing intact, clear oral mucosa - Neck Neck: Present: supple, normal ROM - Respiratory Respiratory effort: normal Respiratory: bilateral: CTA - Cardiovascular Heart Sounds: Present: S1 & S2. Absent: rub, click - Extremities Extremities: pulses symmetrical, No edema Peripheral Pulses: within normal limits - Abdominal General gastrointestinal: Present: soft, non-tender, non-distended, normal bowel sounds Female genitourinary: Present: normal - Integumentary Integumentary: Present: clear, warm, dry - Musculoskeletal Musculoskeletal: gait normal, strength equal bilaterally - Psychiatric Psychiatric: appropriate mood/affect, intact judgment & insight - Neurologic Neurologic: CNII-XII intact, moves all extremities Plan Activity: no restrictions Weight Bearing Status: Full Weight Bearing Diet: diabetic Additional Instructions: f/u at [facility]--pt with no insurance Follow up with: PRIMARY CARE, [Primary Care Provider] - 7 Days Forms: Warfarin Discharge Instruction Prescriptions: ALBUTEROL Inhaler [ProAir HFA Inhaler] 1 puff IH QID PRN #1 can PRN Reason: Congestion Fluticasone [Flonase] 1 spray NS QDAY #1 bottle Hydrochlorothiazide [HCTZ] 25 mg PO QDAY #30 tablet Insulin Glulisine [Apidra] 10 units SQ TID #1000 units Insulin NPH/Regular [NovoLIN 70/30] 30 unit SQ BIDDIAB #30 ml Montelukast [Singulair] 10 mg PO QPM #30 tablet oxyCODONE /ACETAMINOPHEN [Percocet 5/325 mg] 1 tab PO Q6H PRN #12 tablet PRN Reason: Pain, Moderate (4-6) Potassium Chloride [K-Dur] 20 meq PO QDAY #30 tablet Warfarin [Coumadin] 5 mg PO QDAY #30 tablet
[2016-08-24] MEDS: HCTZ PO SCH (09:56)
[2016-08-24] MEDS: K-DUR PO SCH (09:57)
[2016-08-24] MEDS: FLONASE NS SCH (09:57)
[2016-08-24 15:52] VITALS: BP 122/76
[2016-08-24] MEDS: SINGULAIR PO SCH (17:14)
== END 2016-08-24 19:19 | disposition home or self-care (01) | DRG 638 ==
LOC: ED 16:51 → 4A 23:52
PROVIDERS: ADMIT Internal Medicine; ATTEND Hospitalist
DX: E11.65 Type 2 diabetes mellitus with hyperglycemia (principal); J45.901 Unspecified asthma with (acute) exacerbation; M19.90 Unspecified osteoarthritis, unspecified site; Z86.711 Personal history of pulmonary embolism; Z86.718 Personal history of other venous thrombosis and embolism; Z88.0 Allergy status to penicillin; I10 Essential (primary) hypertension; Z91.19 Patient's noncompliance with other medical treatment and regimen
CPT/HCPCS: 36415; 71020; 80048; 81001; 82805; 82962; 84484; 84703; 85025; 85610; 93005; 93010; 96372; 96374; 96375; J1650; J1815; J1818; J1885; J7030

== ENCOUNTER 2017-10-12 21:55 | Inpatient (IN) | payer SELFPAY ==
[2017-10-12 23:19] LABS: Basophils % (Auto) 0.6 % (0.0-1.8); Eosinophils # (Auto) 0.1 K/mm3 (0.0-0.4); Eosinophils % (Auto) 1.6 % (0.0-4.3); Hematocrit 28.8 % (30.3-42.9); Hemoglobin 9.4 gm/dl (10.1-14.3); Lymphocytes # (Auto) 2.6 K/mm3 (1.2-5.4); Lymphocytes % (Auto) 33.4 % (13.4-35.0); Mean Corpuscular HGB Conc 33 % (30-34); Mean Corpuscular Volume 77 fl (79-97); Monocytes # (Auto) 0.9 K/mm3 (0.0-0.8); Monocytes % (Auto) 11.2 % (0.0-7.3); Platelet Count 380 K/mm3 (140-440); Red Blood Count 3.73 M/mm3 (3.65-5.03); Red Cell Distribution Width 18.6 % (13.2-15.2)
[2017-10-12 23:20] LABS: Mean Corpuscular Hemoglobin 25 pg (28-32)
[2017-10-12 23:40] LABS: BUN/Creatinine Ratio 14; Blood Urea Nitrogen 11 mg/dL (7-17); Hemolysis Index 2
[2017-10-13 02:39] LABS: Bacteria,Urine 1+ /HPF (Negative); Bilirubin,Urine NEG (Negative); Blood,Urine NEG (Negative); Color,Urine Yellow (Yellow); Hyaline Casts,Urine 1 /LPF; Mucus,Urine FEW /HPF; Protein,Urine <15 mg/dL mg/dL (Negative); Urobilinogen,Urine < 2.0 mg/dL (<2.0)
[2017-10-13] MEDS ORDERED: NACL 0.9% 1000 ML 1,000 ML IV ONE (03:10)
[2017-10-13] MEDS ORDERED: HumuLIN R IV ONE (03:11)
--- NOTE | 2017-10-13 05:04 | Cat Scan Report ---
FINAL REPORT EXAM: CT ANGIO CHEST HISTORY: SOB, elevated Dimer TECHNIQUE: A CT angiogram was performed following the intravenous injection of iodinated contrast. MIP sagittal coronal reconstructions were reviewed. Correlation is made to the previous study of 03/31/2016. FINDINGS: There is a recurrent partially occlusive embolus in 1 of the right lower lobe pulmonary arteries. There are no additional pulmonary emboli. The heart size is normal. The thoracic aorta is normal in caliber. There is no evidence of dissection. Adenopathy is not seen. The lungs reveal minimal scarring in the right lung base. There are no acute infiltrates, congestion or pleural effusion. In the upper abdomen the adrenal glands appear normal. The skeletal structures reveal mild disc degeneration in the dorsal spine. At the thoracic inlet the thyroid gland appears normal. There is a small hiatal hernia. IMPRESSION: Recurrent partially occlusive embolus in 1 of the right lower lobe pulmonary arteries. No evidence of right heart strain. Mild scarring in the right lung base.
[2017-10-13] MEDS ORDERED: HEPARIN 10,000 UNITS/10 ML IV ONE (05:15)
[2017-10-13] MEDS: HEPARIN/ 0.45% NACL-25,000 UNIT/500 ML 25,000 UNIT/500 ML BAG IV SCH (05:42)
[2017-10-13] MEDS ORDERED: MORPHINE IV ONE (05:47)
[2017-10-13 05:57] LABS: INR 0.95 (0.87-1.13)
--- NOTE | 2017-10-13 06:28 | Emergency Department Report ---
HPI - General Chief Complaint: Hyperglycemia Time Seen by Provider: 10/13/17 02:32 - HPI HPI: 51-year-old female presents to the emergency department with 2 different complaints. First, patient says that she has been checking her sugar lately and it has been elevated but she also has been out of her insulin for the past 4 days. She takes both metformin 1000 twice daily, insulin NPH 30 units twice daily and 10 units of regular insulin 3 times a day. Secondarily, the patient is concerned that she could have developed a blood clot. She has a history of a PE in the past after driving cross-country. Recently she flew from [place] to [place], a 5 hour trip. She has just started having some twinges of discomfort in the chest that she says felt like it did when she had her previous PE. She is not currently on any anticoagulation. She does not currently have a primary care physician. ED Past Medical Hx - Past Medical History Hx Hypertension: Yes Hx Congestive Heart Failure: No Hx Diabetes: Yes Hx Deep Vein Thrombosis: Yes (March 2016 , right leg) Hx Pulmonary Embolism: Yes (March 2016) Hx Arthritis: Yes Hx Asthma: Yes Hx COPD: No - Surgical History Past Surgical History?: Yes Additional Surgical History: - Social History Smoking Status: Former Smoker - Medications Home Medications: Home Medications Medication Instructions Recorded Confirmed Last Taken Type ALBUTEROL Inhaler (OR & NICU) 1 puff IH QID PRN #1 can 08/24/16 Unknown Rx [ProAir HFA Inhaler] Fluticasone [Flonase] 1 spray NS QDAY #1 bottle 08/24/16 Unknown Rx Ibuprofen [Motrin] 800 mg PO Q8HR PRN #10 tablet 08/24/16 Unknown Rx Insulin Glulisine [Apidra] 10 units SQ TID #1000 units 08/24/16 Unknown Rx Insulin NPH/Regular [NovoLIN 70/30] 30 unit SQ BIDDIAB #30 ml 08/24/16 Unknown Rx Montelukast [Singulair] 10 mg PO QPM #30 tablet 08/24/16 Unknown Rx Potassium Chloride [K-Dur] 20 meq PO QDAY #30 tablet 08/24/16 Unknown Rx Warfarin [Coumadin] 5 mg PO QDAY #30 tablet 08/24/16 Unknown Rx hydroCHLOROthiazide [HCTZ] 25 mg PO QDAY #30 tablet 08/24/16 Unknown Rx oxyCODONE /ACETAMINOPHEN [Percocet 1 tab PO Q6H PRN #12 tablet 08/24/16 Unknown Rx 5/325 mg] ED Review of Systems ROS: Stated complaint: SOB/ HIGH SUGAR 500+ Other details as noted in HPI Comment: All other systems reviewed and negative Constitutional: denies: chills, fever Eyes: denies: eye pain, eye discharge, vision change ENT: denies: ear pain, throat pain Respiratory: shortness of breath (intermittent). denies: cough, wheezing Cardiovascular: chest pain (intermittent). denies: edema Gastrointestinal: denies: abdominal pain, nausea, diarrhea Genitourinary: denies: urgency, dysuria, discharge Musculoskeletal: denies: back pain, joint swelling, arthralgia Skin: denies: rash, lesions Neurological: denies: weakness, numbness Physical Exam - Physical Exam Vital Signs: Vital Signs 10/12/17 22:45 Temperature 97.9 F Pulse Rate 100 H Respiratory 17 Rate Blood Pressure 159/80 O2 Sat by Pulse 99 Oximetry Physical Exam: GENERAL: The patient is well-developed well-nourished. HENT: Normocephalic. Atraumatic. Patient has moist mucous membranes. EYES: Extraocular motions are intact. Pupils equal reactive to light bilaterally. NECK: Supple. Trachea is midline. CHEST/LUNGS: Clear to auscultation. There is no respiratory distress noted. HEART/CARDIOVASCULAR: Regular. There is no tachycardia. There is no murmur. ABDOMEN: Abdomen is soft, nontender. Patient has normal bowel sounds. Obese habitus. SKIN: Skin is warm and dry. NEURO: The patient is awake, alert, and oriented. The patient is cooperative. The patient has no focal neurologic deficits. The patient has normal speech. MUSCULOSKELETAL: There is no tenderness or deformity. There is no limitation range of motion. There is no evidence of acute injury. ED Course Vital Signs 10/12/17 22:45 Temperature 97.9 F Pulse Rate 100 H Respiratory 17 Rate Blood Pressure 159/80 O2 Sat by Pulse 99 Oximetry ED Medical Decision Making - Lab Data Result diagrams: 10/12/17 22:59 10/12/17 22:59 - EKG Data -: EKG Interpreted by Vt EKG shows normal: sinus rhythm, axis, intervals, QRS complexes, ST-T waves Rate: tachycardia (103 bpm) - EKG Data When compared to previous EKG there are: previous EKG unavailable Interpretation: other (mild sinus tachycardia. No ST elevation AL) - Radiology Data Radiology results: report reviewed EXAM: CT ANGIO CHEST HISTORY: SOB, elevated Dimer TECHNIQUE: A CT angiogram was performed following the intravenous injection of iodinated contrast. MIP sagittal coronal reconstructions were reviewed. Correlation is made to the previous study of 03/31/2016. FINDINGS: There is a recurrent partially occlusive embolus in 1 of the right lower lobe pulmonary arteries. There are no additional pulmonary emboli. The heart size is normal. The thoracic aorta is normal in caliber. There is no evidence of dissection. Adenopathy is not seen. The lungs reveal minimal scarring in the right lung base. There are no acute infiltrates, congestion or pleural effusion. In the upper abdomen the adrenal glands appear normal. The skeletal structures reveal mild disc degeneration in the dorsal spine. At the thoracic inlet the thyroid gland appears normal. There is a small hiatal hernia. IMPRESSION: Recurrent partially occlusive embolus in 1 of the right lower lobe pulmonary arteries. No evidence of right heart strain. Mild scarring in the right lung base. Transcribed By: RB Dictated By: MONISHA PIERSON MD Electronically Authenticated By: MONISHA PIERSON MD Signed Date/Time: 10/13/17 6043 - Medical Decision Making Patient's blood sugar was about 500 prior to any treatment. She was given IV fluid and IV insulin and it has come down to about 350. Patient had a slightly elevated and equivocal d-dimer at about 300. For this reason a CT angiography of the chest was done and came back showing a recurrent partially occlusive pulmonary embolism in a artery of the right lower lung. Patient started on a heparin drip. She was accepted for admission by the hospitalist service and I was given permission to place bridging orders under Dr. Matias. - Differential Diagnosis DKA, HHNK, PE, Pneumonia Critical Care Time: No Critical care attestation.: If time is entered above; I have spent that time in minutes in the direct care of this critically ill patient, excluding procedure time. ED Disposition Clinical Impression: Hyperglycemia, Uncontrolled diabetes mellitus Pulmonary embolism Qualifiers: Pulmonary embolism type: other Chronicity: acute Acute cor pulmonale presence: without acute cor pulmonale Qualified Code(s): I26.99 - Other pulmonary embolism without acute cor pulmonale Hypertension Qualifiers: Hypertension type: essential hypertension Qualified Code(s): I10 - Essential ( primary) hypertension Disposition: 09 OP ADMIT IP TO THIS HOSP Is pt being admited?: Yes Condition: Fair Instructions: Hypertension (ED), Diabetes Mellitus Type 2 in Adults (ED) Referrals: PRIMARY CARE, [Primary Care Provider] - 3-5 Days Time of Disposition: 06:29
--- NOTE | 2017-10-13 08:58 | History and Physical Report ---
History of Present Illness Date of examination: 10/13/17 Chief complaint: SOB History of present illness: Patient is 51 yo woman with a history of type 2 DM, hypertension, anemia, GERD and provoked (car right from [place] to [place], [place] 2016) right leg DVT and saddle pulmonary embolus s/p Xarelto for 6 months who presents with severe constant worsening SOB with minimal activity, not relieved by rest, not associated with radiating chest pains but aggravated by flight from [place] to [place] 1 week ago. She has been out of her medications for 4 days because she lost her [employer] insurance and doesn't have a pcp for refills. So, she c/o uncontrolled blood sugars. PMH: as hpi, also asthma and arthritis PSH: and right trigger finger release surgery SH: ex smoker quit "awhile ago", no etoh or illegal drug use FH: states everyone has Diabetes but no hypertension ROS: Constitutional: denies: fever ENT: denies: throat or neck pain Respiratory: denies: cough, shortness of breath Cardiovascular: denies: chest pain Endocrine: denies unexplained weight loss or gain Gastrointestinal: denies: abdominal pain, nausea Genitourinary: denies: dysuria Rectal: denies no incontinence, no bleeding, no itching, no discharge Musculoskeletal: denies swelling, myaglia, muscle weakness Skin: denies: rash Neurological: denies: headache Hematological/Lymphatic: denies: easy bleeding or easy bruising Allergic/Immunologic: no urticaria, no allergic rhinitis, no anaphylaxis Psych: denies sadness or hopelessness, SI/HI Medications and Allergies Allergies Allergy/AdvReac Type Severity Reaction Status Date / Time Penicillins Allergy Hives Verified 03/31/16 14:35 egg AdvReac Nausea Verified 08/23/16 14:59 lisinopril AdvReac Unknown Verified 10/13/17 14:24 milk AdvReac Nausea Verified 08/23/16 14:59 Home Medications Medication Instructions Recorded Confirmed Last Taken Type ALBUTEROL Inhaler (OR & NICU) 1 puff IH QID PRN #1 can 08/24/16 Unknown Rx [ProAir HFA Inhaler] Fluticasone [Flonase] 1 spray NS QDAY #1 bottle 08/24/16 Unknown Rx Ibuprofen [Motrin] 800 mg PO Q8HR PRN #10 tablet 08/24/16 10/13/17 Unknown Rx Insulin Glulisine [Apidra] 10 units SQ TID #1000 units 08/24/16 10/13/17 Unknown Rx Insulin NPH/Regular [NovoLIN 70/30] 30 unit SQ BIDDIAB #30 ml 08/24/16 10/13/17 Unknown Rx Montelukast [Singulair] 10 mg PO QPM #30 tablet 08/24/16 10/13/17 Unknown Rx Potassium Chloride [K-Dur] 20 meq PO QDAY #30 tablet 08/24/16 10/13/17 Unknown Rx Warfarin [Coumadin] 5 mg PO QDAY #30 tablet 08/24/16 Unknown Rx hydroCHLOROthiazide [HCTZ] 25 mg PO QDAY #30 tablet 08/24/16 10/13/17 Unknown Rx oxyCODONE /ACETAMINOPHEN [Percocet 1 tab PO Q6H PRN #12 tablet 08/24/16 Unknown Rx 5/325 mg] Active Meds: Active Medications Heparin Sodium/Sodium Chloride (Heparin/ 0.45% Nacl-25,000 Unit/500 Ml) 25,000 unit in 500 mls @ 30 mls/hr IV TITR LINDA; Protocol Last Admin: 10/13/17 05:42 Dose: 1,500 units/hr, 30 mls/hr Exam - Physical Exam Narrative exam: GEN: WDWN, NAD, Awake, Alert, Orientated x 3, bmi 46.2 HEENT: NCAT, EOMI, PERRL, OP Clear NECK: supple, no adenopathy, no thyromegaly, no JVD CVS/HEART: RRR, normal S1S2, pulses present bilaterally CHEST/LUNGS: CTA B, Symmetrical chest expansion, good air entry bilaterally GI/Abdomen: soft, NTND, good bowel sounds, no guarding or rebound /Bladder: no suprapubic tenderness, no CVA or paraspinal tenderness EXT/Skin: no c/c/e, no obvious rash MSK: FROM x 4 Neuro: CN 2-12 grossly intact, no new focal deficits Psych: calm - Constitutional Vitals: Temp Pulse Resp BP Pulse Ox 98.2 F 89 19 124/77 97 10/13/17 08:49 10/13/17 08:49 10/13/17 08:49 10/13/17 08:49 10/13/17 08:49 Results - Labs CBC & Chem 7: 10/12/17 22:59 10/12/17 22:59 Labs: Abnormal lab results 10/12/17 10/12/17 10/12/17 Range/Units 22:38 22:59 22:59 Hgb 9.4 L (10.1-14.3) gm/dl Hct 28.8 L (30.3-42.9) % MCV 77 L (79-97) fl MCH 25 L (28-32) pg RDW 18.6 H (13.2-15.2) % Shoshone % (Auto) 11.2 H (0.0-7.3) % Shoshone # 0.9 H (0.0-0.8) K/mm3 APTT (24.2-36.6) Sec. D-Dimer (0-234) ng/mlDDU Sodium 135 L (137-145) mmol/L Chloride 94.7 L (98-107) mmol/L Glucose 507 H* (65-100) mg/dL POC Glucose 474 H (70-105) Urine WBC (Auto) (0.0-6.0) /HPF 10/12/17 10/13/17 10/13/17 Range/Units 22:59 01:32 04:43 Hgb (10.1-14.3) gm/dl Hct (30.3-42.9) % MCV (79-97) fl MCH (28-32) pg RDW (13.2-15.2) % [place]oshone % (Auto) (0.0-7.3) % Shoshone # (0.0-0.8) K/mm3 APTT (24.2-36.6) Sec. D-Dimer 344.09 H (0-234) ng/mlDDU Sodium (137-145) mmol/L Chloride (98-107) mmol/L Glucose (65-100) mg/dL POC Glucose 348 H (70-105) Urine WBC (Auto) 10.0 H (0.0-6.0) /HPF 10/13/17 10/13/17 Range/Units 05:26 08:44 Hgb (10.1-14.3) gm/dl Hct (30.3-42.9) % MCV (79-97) fl MCH (28-32) pg RDW (13.2-15.2) % Shoshone % (Auto) (0.0-7.3) % [place]oshone # (0.0-0.8) K/mm3 APTT 21.0 L (24.2-36.6) Sec. D-Dimer (0-234) ng/mlDDU Sodium (137-145) mmol/L Chloride (98-107) mmol/L Glucose (65-100) mg/dL POC Glucose 381 H (70-105) Urine WBC (Auto) (0.0-6.0) /HPF Assessment and Plan Patient is 51 yo woman with a history of type 2 DM, hypertension, anemia, GERD and provoked (car right from [place] to [place], [place] 2017) right leg DVT and saddle pulmonary embolus s/p Xarelto for 6 months who presents with severe constant worsening SOB with minimal activity, not relieved by rest, not associated with radiating chest pains but aggravated by flight from [place] to [place] 1 week ago. She has been out of her medications for 4 days because she lost her [employer] insurance and doesn't have a pcp for refills. So, she c/o uncontrolled blood sugars. * D-dimer elevated and CTA chest IMPRESSION: Recurrent partially occlusive embolus in 1 of the right lower lobe pulmonary arteries. No evidence of right heart strain. Mild scarring in the right lung base. 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
[2017-10-13] MEDS ORDERED: D50W (25GM) Syringe IV PRN (09:03)
[2017-10-13] MEDS ORDERED: PERCOCET 5/325 PO PRN (09:04)
[2017-10-13] MEDS ORDERED: ZOFRAN IV PRN (09:05)
[2017-10-13] MEDS ORDERED: REGLAN IV PRN (09:05)
[2017-10-13] MEDS ORDERED: MIRALAX 3350 PO PRN (09:05)
[2017-10-13] MEDS ORDERED: AMBIEN PO PRN (09:05)
[2017-10-13] MEDS ORDERED: TYLENOL PO PRN (09:05)
[2017-10-13] MEDS: PROTONIX PO SCH (10:37)
[2017-10-13] MEDS: LEVAQUIN 750MG/150ML 750 MG/150 ML BAG IV SCH (10:44)
[2017-10-13] MEDS: K-DUR PO SCH (10:48)
[2017-10-13] MEDS: HumaLOG SUB-Q SCH ×4 (11:24→21:51)
[2017-10-13 14:49] LABS: INR 0.99 (0.87-1.13)
[2017-10-13 14:51] LABS: Heparin anti-factor XA 1.11 U.I./ml (0.3-0.7)
[2017-10-13 15:17] LABS: Partial Thromboplastin Time 78.7 Sec. (24.2-36.6)
[2017-10-13] MEDS ORDERED: COUMADIN PO SCH (17:00)
[2017-10-13] MEDS: SINGULAIR PO SCH (18:14)
[2017-10-13] MEDS: NORVASC PO SCH (18:15)
[2017-10-13] MEDS ORDERED: INSULIN GLULISINE 10 UNIT SQ SCH (20:00)
[2017-10-13] MEDS ORDERED: BENADRYL PO PRN (22:17)
[2017-10-14] MEDS: HEPARIN/ 0.45% NACL-25,000 UNIT/500 ML 25,000 UNIT/500 ML BAG IV SCH (01:46)
[2017-10-14 06:27] LABS: Hemoglobin 8.2 gm/dl (10.1-14.3)
[2017-10-14 06:39] LABS: INR 0.98 (0.87-1.13)
[2017-10-14 06:43] LABS: BUN/Creatinine Ratio 17; Blood Urea Nitrogen 10 mg/dL (7-17); Hemolysis Index 0
[2017-10-14 06:46] LABS: Hematocrit 26.4 % (30.3-42.9); Mean Corpuscular HGB Conc 32 % (30-34); Mean Corpuscular Hemoglobin 24 pg (28-32); Mean Corpuscular Volume 77 fl (79-97); Mean Platelet Volume 8.1 fl (6-12); Platelet Count 313 K/mm3 (140-440); Red Blood Count 3.43 M/mm3 (3.65-5.03); Red Cell Distribution Width 18.4 % (13.2-15.2)
[2017-10-14] MEDS: HumaLOG SUB-Q SCH ×7 (09:02→21:30)
[2017-10-14] MEDS: NORVASC PO SCH (10:49)
[2017-10-14] MEDS: PROTONIX PO SCH (10:49)
[2017-10-14] MEDS: K-DUR PO SCH (10:49)
[2017-10-14] MEDS: LEVAQUIN 750MG/150ML 750 MG/150 ML BAG IV SCH (10:49)
--- NOTE | 2017-10-14 12:39 | Progress Note ---
Assessment and Plan Assessment and plan: Patient is 51 yo woman with a history of type 2 DM, hypertension, anemia, GERD and provoked (car right from [place] to [place], [place] 2017) right leg DVT and saddle pulmonary embolus s/p Xarelto for 6 months who presents with severe constant worsening SOB with minimal activity, not relieved by rest, not associated with radiating chest pains but aggravated by flight from [place] to [place] 1 week ago. She has been out of her medications for 4 days because she lost her [employer] insurance and doesn't have a pcp for refills. So, she c/o uncontrolled blood sugars. * D-dimer elevated and CTA chest IMPRESSION: Recurrent partially occlusive embolus in 1 of the right lower lobe pulmonary arteries. No evidence of right heart strain. Mild scarring in the right lung base. 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 Follow-up on current diagnosis of PE. Overnight uneventful. Patient denies any chest pain, shortness breath, nausea/vomiting or severe headaches. Imaging, nursing note, chart, labs and old chart reviewed. Discussed with patient. She wants to go on Xarelto or Eliquis, prefer Eliquis because she heard at the yearly program. She has been on Xarelto before. She has dentures placement this week, She already spent $2000.00 and re-scheduled before. Hospitalist Physical - Physical exam Narrative exam: GEN: WDWN, NAD, Awake, Alert, Orientated x 3, bmi 46.2 HEENT: NCAT, EOMI, PERRL, OP Clear NECK: supple, no adenopathy, no thyromegaly, no JVD CVS/HEART: RRR, normal S1S2, pulses present bilaterally CHEST/LUNGS: CTA B, Symmetrical chest expansion, good air entry bilaterally GI/Abdomen: soft, NTND, good bowel sounds, no guarding or rebound /Bladder: no suprapubic tenderness, no CVA or paraspinal tenderness EXT/Skin: no c/c/e, no obvious rash MSK: FROM x 4 Neuro: CN 2-12 grossly intact, no new focal deficits Psych: calm - Constitutional Vitals: Temp Pulse Resp BP Pulse Ox 98.2 F 80 16 148/80 97 10/14/17 06:28 10/14/17 06:28 10/14/17 06:28 10/14/17 10:49 10/14/17 06:28 Results - Labs CBC & Chem 7: 10/14/17 05:13 10/14/17 05:13 Labs: Laboratory Last Values WBC 7.6 K/mm3 (4.5-11.0) 10/14/17 05:13 RBC 3.43 M/mm3 (3.65-5.03) L 10/14/17 05:13 Hgb 8.2 gm/dl (10.1-14.3) L 10/14/17 05:13 Hct 26.4 % (30.3-42.9) L 10/14/17 05:13 MCV 77 fl (79-97) L 10/14/17 05:13 MCH 24 pg (28-32) L 10/14/17 05:13 MCHC 32 % (30-34) 10/14/17 05:13 RDW 18.4 % (13.2-15.2) H 10/14/17 05:13 Plt Count 313 K/mm3 (140-440) 10/14/17 05:13 Lymph % (Auto) 33.4 % (13.4-35.0) 10/12/17 22:59 [place] % (Auto) 11.2 % (0.0-7.3) H 10/12/17 22:59 Eos % (Auto) 1.6 % (0.0-4.3) 10/12/17 22:59 Baso % (Auto) 0.6 % (0.0-1.8) 10/12/17 22:59 Lymph # 2.6 K/mm3 (1.2-5.4) 10/12/17 22:59 [place] # 0.9 K/mm3 (0.0-0.8) H 10/12/17 22:59 Eos # 0.1 K/mm3 (0.0-0.4) 10/12/17 22:59 Baso # 0.0 K/mm3 (0.0-0.1) 10/12/17 22:59 Seg Neutrophils % 53.2 % (40.0-70.0) 10/12/17 22:59 Seg Neutrophils # 4.2 K/mm3 (1.8-7.7) 10/12/17 22:59 PT 13.5 Sec. (12.2-14.9) 10/14/17 05:13 INR 0.98 (0.87-1.13) 10/14/17 05:13 APTT 78.7 Sec. (24.2-36.6) H* 10/13/17 Unknown D-Dimer 344.09 ng/mlDDU (0-234) H 10/12/17 22:59 Heparin Anti-Xa Level 0.62 U.I./ml (0.3-0.7) 10/14/17 00:37 VBG pH 7.334 (7.320-7.420) 10/12/17 22:59 Sodium 132 mmol/L (137-145) L 10/14/17 05:13 Potassium 3.6 mmol/L (3.6-5.0) 10/14/17 05:13 Chloride 95.1 mmol/L (98-107) L 10/14/17 05:13 Carbon Dioxide 22 mmol/L (22-30) 10/14/17 05:13 Anion Gap 19 mmol/L 10/14/17 05:13 BUN 10 mg/dL (7-17) 10/14/17 05:13 Creatinine 0.6 mg/dL (0.7-1.2) L 10/14/17 05:13 Estimated GFR > 60 ml/min 10/14/17 05:13 BUN/Creatinine Ratio 17 % 10/14/17 05:13 Glucose 365 mg/dL (65-100) H 10/14/17 05:13 POC Glucose 446 (70-105) H 10/14/17 11:16 Hemoglobin A1c 9.8 % (4-6) H 10/14/17 05:13 Calcium 9.0 mg/dL (8.4-10.2) 10/14/17 05:13 Troponin T < 0.010 ng/mL (0.00-0.029) 10/13/17 06:41 Urine Color Yellow (Yellow) 10/13/17 01:32 Urine Turbidity Clear (Clear) 10/13/17 01:32 Urine pH 6.0 (5.0-7.0) 10/13/17 01:32 Ur Specific [place] 1.027 (1.003-1.030) 10/13/17 01:32 Urine Protein <15 mg/dl mg/dL (Negative) 10/13/17 01:32 Urine Glucose (UA) >=500 mg/dL (Negative) 10/13/17 01:32 Urine Ketones Neg mg/dL (Negative) 10/13/17 01:32 Urine Blood Neg (Negative) 10/13/17 01:32 Urine Nitrite Neg (Negative) 10/13/17 01:32 Urine Bilirubin Neg (Negative) 10/13/17 01:32 Urine Urobilinogen < 2.0 mg/dL (<2.0) 10/13/17 01:32 Ur Leukocyte Esterase Neg (Negative) 10/13/17 01:32 Urine WBC (Auto) 10.0 /HPF (0.0-6.0) H 10/13/17 01:32 Urine RBC (Auto) 1.0 /HPF (0.0-6.0) 10/13/17 01:32 U Epithel Cells (Auto) < 1.0 /HPF (0-13.0) 10/13/17 01:32 Urine Bacteria (Auto) 1+ /HPF (Negative) 10/13/17 01:32 Hyaline Casts 1 /LPF 10/13/17 01:32 Urine Mucus Few /HPF 10/13/17 01:32
[2017-10-14] MEDS ORDERED: COUMADIN PO SCH (17:00)
[2017-10-14] MEDS: SINGULAIR PO SCH (19:47)
[2017-10-14] MEDS: ELIQUIS PO SCH (21:29)
[2017-10-14] MEDS ORDERED: ELIQUIS PO SCH (22:00)
[2017-10-15] MEDS ORDERED: ROBITUSSIN PO PRN (02:05)
[2017-10-15 05:52] LABS: Hemoglobin 8.3 gm/dl (10.1-14.3); Mean Corpuscular HGB Conc 31 % (30-34); Mean Corpuscular Volume 75 fl (79-97); Platelet Count 316 K/mm3 (140-440); Red Blood Count 3.59 M/mm3 (3.65-5.03); Red Cell Distribution Width 18.1 % (13.2-15.2)
[2017-10-15 05:56] LABS: Mean Corpuscular Hemoglobin 23 pg (28-32)
[2017-10-15 06:05] LABS: BUN/Creatinine Ratio 15; Blood Urea Nitrogen 9 mg/dL (7-17); Calcium 8.8 mg/dL (8.4-10.2); Hemolysis Index 3
[2017-10-15] MEDS: HumaLOG SUB-Q SCH ×4 (09:22→12:55)
[2017-10-15] MEDS: ELIQUIS PO SCH (10:33)
[2017-10-15] MEDS: PROTONIX PO SCH (10:34)
[2017-10-15] MEDS: NORVASC PO SCH (10:34)
[2017-10-15] MEDS: K-DUR PO SCH (10:34)
[2017-10-15] MEDS: LEVAQUIN 750MG/150ML 750 MG/150 ML BAG IV SCH (10:34)
--- NOTE | 2017-10-15 12:59 | Discharge Summary ---
Providers - Providers Date of Admission: 10/13/17 09:23 Date of discharge: 10/15/17 Attending physician: JUAN BERRY 10/14/17 12:33 Consult to Case Management [CONS] Routine Services Needed at Discharge: Jitterbug Operator Notified:: COPY GIVEN TO CM Additional Physician Instructions: tara Primary care physician: QUALITY ASSURANCE DIRECTOR Hospitalization Condition: Stable Hospital course: Patient is 51 yo woman with a history of type 2 DM, hypertension, anemia, GERD and provoked (car right from [place] to [place], [place] 2016) right leg DVT and saddle pulmonary embolus s/p Xarelto for 6 months who presents with severe constant worsening SOB with minimal activity, not relieved by rest, not associated with radiating chest pains but aggravated by flight from [place] to [place] 1 week ago. She has been out of her medications for 4 days because she lost her [employer] insurance and doesn't have a pcp for refills. So, she c/o uncontrolled blood sugars. * D-dimer elevated and CTA chest IMPRESSION: Recurrent partially occlusive embolus in 1 of the right lower lobe pulmonary arteries. No evidence of right heart strain. Mild scarring in the right lung base. 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 Disposition: DC-01 TO HOME OR SELFCARE Time spent for discharge: 35 minutes Core Measure Documentation - Palliative Care Palliative Care/ Comfort Measures: Not Applicable - Core Measures Any of the following diagnoses?: none - VTE Discharge Requirements Deep Vein Thrombosis/Pulmonary Embolism Present on Admission: Yes Has pt received <5 days of overlap therapy or INR<2.0: No (home on Eliquis) Anticoagulant overlap therapy prescribed at discharge: No Contraindication No Overlap Therapy order at DC: Not Indicated Exam - Physical Exam Narrative exam: GEN: WDWN, NAD, Awake, Alert, Orientated x 3, bmi 46.2 HEENT: NCAT, EOMI, PERRL, OP Clear NECK: supple, no adenopathy, no thyromegaly, no JVD CVS/HEART: RRR, normal S1S2, pulses present bilaterally CHEST/LUNGS: CTA B, Symmetrical chest expansion, good air entry bilaterally GI/Abdomen: soft, NTND, good bowel sounds, no guarding or rebound /Bladder: no suprapubic tenderness, no CVA or paraspinal tenderness EXT/Skin: no c/c/e, no obvious rash MSK: FROM x 4 Neuro: CN 2-12 grossly intact, no new focal deficits Psych: calm - Constitutional Vitals: Temp Pulse Resp BP Pulse Ox 98.2 F 84 16 120/70 98 18 06:31 18 06:31 10/15/17 06:31 10/15/17 06:31 10/15/17 06:31 Plan Activity: other (no strenous activity or long distance travel unless cleared by pcp) Diet: low salt, diabetic Special Instructions: record daily BP diary, record blood sugar diary (3 times a day with meals) Additional Instructions: No dental work until cleared by PCP, walk into [facility] if need be. Follow up with: PRIMARY CARE, [Primary Care Provider] - 3-5 Days [facility] [Provider Group] - 7 Days Prescriptions: ALBUTEROL Inhaler (OR & NICU) [ProAir HFA Inhaler] 1 puff IH QID PRN #1 can PRN Reason: Congestion amLODIPine [Norvasc] 5 mg PO QDAY #30 tablet Apixaban [Eliquis] 5 mg PO Q12HR 30 Days tablet Apixaban [Eliquis] 10 mg PO Q12HR 14 Days tablet Ciprofloxacin HCl [Ciprofloxacin TAB] 500 mg PO BID #10 tablet guaiFENesin [Robitussin] 200 mg PO Q4H PRN 3 Days oral.liqd PRN Reason: Cough Insulin NPH/Regular [NovoLIN 70/30] 35 unit SUB-Q BIDDIAB 30 Days units oxyCODONE /ACETAMINOPHEN [Percocet 5/325 mg] 1 tab PO Q6H PRN #12 tablet PRN Reason: Pain , Severe (7-10) Pantoprazole [Protonix TAB] 40 mg PO QDAY #30 tablet
[2017-10-15 14:46] VITALS: BP 125/70
[2017-10-16] MEDS ORDERED: LEVAQUIN PO SCH (10:00)
[2017-10-21] MEDS ORDERED: ELIQUIS PO SCH (22:00)
== END 2017-10-15 17:10 | disposition home or self-care (01) | DRG 871 ==
LOC: ED 21:55 → 4A 10-13 09:23 → 3A 10-13 13:55
PROVIDERS: ADMIT Internal Medicine; ATTEND Internal Medicine
DX: A41.50 Gram-negative sepsis, unspecified (principal); I26.99 Other pulmonary embolism without acute cor pulmonale; N39.0 Urinary tract infection, site not specified; Z68.42 Body mass index [BMI] 45.0-49.9, adult; I10 Essential (primary) hypertension; K21.9 Gastro-esophageal reflux disease without esophagitis; B96.1 Klebsiella pneumoniae [K. pneumoniae] as the cause of diseases classified elsewhere; D50.9 Iron deficiency anemia, unspecified; E66.01 Morbid (severe) obesity due to excess calories; E11.65 Type 2 diabetes mellitus with hyperglycemia; T46.4X5A Adverse effect of angiotensin-converting-enzyme inhibitors, initial encounter; M19.90 Unspecified osteoarthritis, unspecified site; J45.909 Unspecified asthma, uncomplicated; Y92.89 Other specified places as the place of occurrence of the external cause; Z86.718 Personal history of other venous thrombosis and embolism; Z79.01 Long term (current) use of anticoagulants; Z71.3 Dietary counseling and surveillance; Z71.89 Other specified counseling; Z83.3 Family history of diabetes mellitus; Z88.0 Allergy status to penicillin; Z91.012 Allergy to eggs; Z91.011 Allergy to milk products; Z79.4 Long term (current) use of insulin; Z79.899 Other long term (current) drug therapy
CPT/HCPCS: 36415; 71275; 80048; 81001; 82805; 82962; 83036; 84484; 85025; 85027; 85379; 85520; 85610; 85730; 87076; 87086; 87186; 93005; 93010; 96361; 96374; 96375; J1644; J1815; J1956; J2270; J7030; Q9967

== ENCOUNTER 2017-11-09 09:55 | Inpatient (IN) | payer SELFPAY ==
[2017-11-09 10:43] LABS: Hematocrit 28.4 % (30.3-42.9); Hemoglobin 8.7 gm/dl (10.1-14.3); Red Blood Count 3.71 M/mm3 (3.65-5.03)
[2017-11-09 10:44] LABS: Basophils % (Auto) 0.6 % (0.0-1.8); Eosinophils % (Auto) 2.5 % (0.0-4.3); Lymphocytes % (Auto) 32.2 % (13.4-35.0); Mean Corpuscular HGB Conc 31 % (30-34); Mean Corpuscular Hemoglobin 24 pg (28-32); Mean Corpuscular Volume 77 fl (79-97); Monocytes % (Auto) 12.2 % (0.0-7.3); Platelet Count 336 K/mm3 (140-440); Red Cell Distribution Width 18.7 % (13.2-15.2)
--- NOTE | 2017-11-09 10:44 | Emergency Department Report ---
HPI - General Chief Complaint: Hyperglycemia Time Seen by Provider: 11/09/17 10:25 - HPI HPI: Room 4 The patient is a 51-year-old female presenting with a chief complaint of shortness of breath. The patient states for the past 3 days she has had dyspnea on exertion. The patient states she also has noticed palpitations and her glucoses bent over 600. Patient admits to slight chest tightness the last 2 -3 minutes today. Patient is to nausea but denies vomiting or fever. Of note the patient was diagnosed with a PE earlier this month and sent home on Eliquis however the patient states she was unable to get the Eliquis filled because she had used the program once before. The patient states she has been compliant with her diabetes medication Location: Chest, lungs Duration: 3 days Quality: Tightness, shortness of breath Severity: Moderate Modifying factors: [see above] Context: [see above] Mode of transportation: [not driving] ED Past Medical Hx - Past Medical History Previous Medical History?: Yes Hx Hypertension: Yes Hx Diabetes: Yes Hx Deep Vein Thrombosis: Yes Hx Pulmonary Embolism: Yes (March 2016) Hx Arthritis: Yes Hx Asthma: Yes - Surgical History Past Surgical History?: Yes Additional Surgical History: - Family History Family history: no significant - Social History Smoking Status: Former Smoker Substance Use Type: None (denies illicit drug use), Alcohol (occasional) - Medications Home Medications: Home Medications Medication Instructions Recorded Confirmed Last Taken Type Insulin Glulisine [Apidra] 10 units SQ TID #1000 units 08/24/10/13/17 Unknown Rx ALBUTEROL Inhaler (OR & NICU) 1 puff IH QID PRN #1 can 10/15/17 Unknown Rx [ProAir HFA Inhaler] Acetaminophen [Acetaminophen TAB] 650 mg PO Q6H PRN #15 tablet 10/15/17 Unknown Rx Apixaban [Eliquis] 5 mg PO Q12HR 30 Days tablet 10/15/17 Unknown Rx Apixaban [Eliquis] 10 mg PO Q12HR 14 Days tablet 10/15/17 Unknown Rx Ciprofloxacin HCl [Ciprofloxacin 500 mg PO BID #10 tablet 10/15/17 Unknown Rx TAB] Insulin NPH/Regular [NovoLIN 70/30] 35 unit SUB-Q BIDDIAB 30 Days 10/15/17 Unknown Rx units Pantoprazole [Protonix TAB] 40 mg PO QDAY #30 tablet 10/15/17 Unknown Rx amLODIPine [Norvasc] 5 mg PO QDAY #30 tablet 10/15/17 Unknown Rx guaiFENesin [Robitussin] 200 mg PO Q4H PRN 3 Days oral.liqd 10/15/17 Unknown Rx oxyCODONE /ACETAMINOPHEN [Percocet 1 tab PO Q6H PRN #12 tablet 10/15/17 Unknown Rx 5/325 mg] ED Review of Systems ROS: Stated complaint: HIGH GLUCOSE Other details as noted in HPI Constitutional: no symptoms reported Eyes: denies: eye pain ENT: denies: throat pain Respiratory: shortness of breath, SOB with exertion Cardiovascular: chest pain Endocrine: other (hyperglycemia) Gastrointestinal: nausea. denies: abdominal pain, vomiting Genitourinary: denies: dysuria Musculoskeletal: denies: back pain Neurological: denies: headache Physical Exam - Physical Exam Vital Signs: Vital Signs 11/09/17 09:56 Temperature 98.7 F Pulse Rate 103 H Respiratory 18 Rate Blood Pressure 142/92 O2 Sat by Pulse 100 Oximetry Physical Exam: GENERAL: The patient is well-developed well-nourished female lying on stretcher not appearing to be in acute distress. [] HEENT: Normocephalic. Atraumatic. Extraocular motions are intact. Patient has moist mucous membranes. NECK: Supple. Trachea midline CHEST/LUNGS: Clear to auscultation. There is no respiratory distress noted. HEART/CARDIOVASCULAR: Regular. There is no tachycardia. There is no gallop rub or murmur. ABDOMEN: Abdomen is soft, nontender. Patient has normal bowel sounds. There is no abdominal distention. SKIN: There is no rash. There is no edema. There is no diaphoresis. NEURO: The patient is awake, alert, and oriented. The patient is cooperative. The patient has normal speech and gait. MUSCULOSKELETAL: There is no evidence of acute injury. ED Course Vital Signs 11/09/17 09:56 Temperature 98.7 F Pulse Rate 103 H Respiratory 18 Rate Blood Pressure 142/92 O2 Sat by Pulse 100 Oximetry ED Medical Decision Making - Lab Data Result diagrams: 11/09/17 10:21 11/09/17 10:21 Laboratory Tests 11/09/17 11/09/17 11/09/17 09:59 10:21 10:21 WBC 8.7 RBC 3.71 Hgb 8.7 L Hct 28.4 L MCV 77 L MCH 24 L MCHC 31 RDW 18.7 H Plt Count 336 Lymph % (Auto) 32.2 [place] % (Auto) 12.2 H Eos % (Auto) 2.5 Baso % (Auto) 0.6 Lymph # 2.8 [place] # 1.1 H Eos # 0.2 Baso # 0.0 Seg Neutrophils % 52.5 Seg Neutrophils # 4.6 VBG pH Sodium 125 L Potassium 4.6 Chloride 88.7 L Carbon Dioxide 22 Anion Gap 19 BUN 10 Creatinine 0.7 Estimated GFR > 60 BUN/Creatinine Ratio 14 Glucose 502 H* POC Glucose 458 H Calcium 9.8 Total Creatine Kinase CK-MB (CK-2) CK-MB (CK-2) Rel Index Troponin T NT-Pro-B Natriuret Pep 11/09/17 11/09/17 10:21 10:21 WBC RBC Hgb Hct MCV MCH MCHC RDW Plt Count Lymph % (Auto) [place] % (Auto) Eos % (Auto) Baso % (Auto) Lymph # [place] # Eos # Baso # Seg Neutrophils % Seg Neutrophils # VBG pH 7.390 Sodium Potassium Chloride Carbon Dioxide Anion Gap BUN Creatinine Estimated GFR BUN/Creatinine Ratio Glucose POC Glucose Calcium Total Creatine Kinase 99 CK-MB (CK-2) 1.2 CK-MB (CK-2) Rel Index 1.2 Troponin T < 0.010 NT-Pro-B Natriuret Pep 17.20 - EKG Data -: EKG Interpreted by Nj EKG shows normal: sinus rhythm Rate: normal - EKG Data When compared to previous EKG there are: no significant change Interpretation: other (no ischemic changes seen) - Differential Diagnosis DKA, hyperglycemia, PE, ACS, CHF Critical care attestation.: If time is entered above; I have spent that time in minutes in the direct care of this critically ill patient, excluding procedure time. ED Disposition Clinical Impression: Shortness of breath on exertion, Pulmonary embolism Disposition: OP ADMIT IP TO THIS HOSP Is pt being admited?: Yes Does the pt Need Aspirin: Yes Condition: Fair Referrals: PRIMARY CARE,MD [Primary Care Provider] - 3-5 Days Time of Disposition: 11:37 (hospitalist paged (Dr Martínez))
[2017-11-09 10:45] LABS: Eosinophils # (Auto) 0.2 K/mm3 (0.0-0.4); Lymphocytes # (Auto) 2.8 K/mm3 (1.2-5.4); Monocytes # (Auto) 1.1 K/mm3 (0.0-0.8)
[2017-11-09 10:48] LABS: BUN/Creatinine Ratio 14; Blood Urea Nitrogen 10 mg/dL (7-17); Calcium 9.8 mg/dL (8.4-10.2); Hemolysis Index 0
[2017-11-09] MEDS ORDERED: HumuLIN R IV ONE (11:18)
[2017-11-09 11:19] LABS: Creatine Kinase MB 1.2 ng/mL (0.0-4.0)
[2017-11-09] MEDS ORDERED: NACL 0.9% 1000 ML 1,000 ML IV ONE (11:25)
[2017-11-09] MEDS ORDERED: LOVENOX SUB-Q ONE (11:25)
[2017-11-09] MEDS: DILAUDID IV PRN (20:06)
[2017-11-10] MEDS: HumaLOG SUB-Q SCH ×3 (00:45→12:30)
[2017-11-10 00:54] LABS: Bilirubin,Urine NEG (Negative); Blood,Urine NEG (Negative); Color,Urine Colorless (Yellow); Protein,Urine <15 mg/dL mg/dL (Negative); Urobilinogen,Urine < 2.0 mg/dL (<2.0)
[2017-11-10 00:55] LABS: RBC,Urine < 1.0 /HPF (0.0-6.0)
[2017-11-10] MEDS: DILAUDID IV PRN (01:26)
--- NOTE | 2017-11-10 06:43 | Event Note ---
Date: 11/09/17 See dictated H/p in reports Acute pulmonary embolism Noncompliance
[2017-11-10] MEDS ORDERED: LOVENOX SUB-Q SCH (07:00)
--- NOTE | 2017-11-10 07:33 | History and Physical Report ---
CHIEF COMPLAINT: 1. Shortness of breath. 2. High blood sugars. HISTORY OF PRESENT ILLNESS: A 51-year-old recently diagnosed with acute pulmonary embolism and discharged from this facility, comes in for increasing shortness of breath and dyspnea on exertion. The patient also noticed palpitations. Also, her blood glucose levels have been high around 600. Also, chest tightness for 2-3 minutes, especially on deep inspiration. The patient was discharged on Eliquis, but the patient did not fill because of the expense and she could not get the Eliquis free coupon offer for some reason. So the patient was not taking any anticoagulation for the last couple of weeks after discharge. The patient was discharged on 10/15/2017. PAST MEDICAL HISTORY: Significant for; 1. Hypertension. 2. Diabetes. 3. Deep vein thrombosis. 4. Pulmonary embolism also in 03/2016. 5. Arthritis and asthma. PAST SURGICAL HISTORY: . FAMILY HISTORY: Hypertension. SOCIAL HISTORY: Former smoker, alcohol occasionally. REVIEW OF SYSTEMS: Significant for shortness of breath on minimal exertion and chest pain one time on deep inspiration. Otherwise, review of systems negative. PHYSICAL EXAMINATION: GENERAL: Middle-aged female, obese, cooperative during examination. VITAL SIGNS: Blood pressure is 114/48, temperature is 98.3, pulse is 91, respirations are 18. HEENT: Unremarkable. Pupils equal and reactive. NECK: Supple, no lymphadenopathy, no thyromegaly. LUNGS: Clear to auscultation and percussion. Good air entry. CARDIOVASCULAR SYSTEM: S1, S2 heard. No gallop, no murmur, no rub. Apical impulse in left fifth intercostal space in midclavicular line. ABDOMEN: Soft and benign. No hepatosplenomegaly. No guarding, no rigidity. Hernial orifices are normal. EXTREMITIES: Good pedal pulses. No pedal edema. CENTRAL NERVOUS SYSTEM: Alert and oriented x 4, nonfocal exam. LABORATORY DATA: Significant for blood glucose levels of 502 initially, which has dropped down to 458 and 373. White count is 8700, H and H is 8.7 and 28.4, platelet count is normal 336,000. Sodium is 125, potassium is 4.6, chloride is 88.7, BUN and creatinine is 39 and 0.7, glucose is 502. Urine is normal. DIAGNOSTIC DATA: CT angiogram could not be done because recently the IV access was a problem. The patient's history was clearly in favor of recurrent acute pulmonary embolism. EKG shows normal sinus rhythm, heart rate of 92 per minute, no acute ST-T wave changes. No cor pulmonale changes. ASSESSMENT AND PLAN: 1. Acute pulmonary embolism, recurrent. The patient is not taking Eliquis since discharge and the history is clearly in favor of recurrence of acute pulmonary embolism. Because of IV access, CT angiogram was not done. The patient to be started on Coumadin because of the expense of Eliquis on discharge. Once the Coumadin level reaches therapeutic level, PK consult was requested. Lovenox 100 mg q. 12 was initiated. 2. Hypertension. Hydrochlorothiazide to be discontinued and put her on losartan. The hydrocodone is causing low sodium levels. 3. Hyponatremia secondary to hydrochlorothiazide. Will stop the hydrochlorothiazide and start on losartan. 4. Insulin-dependent diabetes. Continue home insulin and coverage. 5. Gastroesophageal reflux disease. Continue omeprazole. 6. Chronic pain. Continue oxycodone. Chest pain, very transient. No Lexiscan was ordered. We will defer to the primary care team. Chest pain secondary to inspiration and possible pleurisy secondary to pulmonary embolism. 7. Deep venous thrombosis prophylaxis. The patient on Lovenox and Coumadin. 8. GI prophylaxis. The patient on omeprazole. JOB# [id number] MEETA/NTS
[2017-11-10] MEDS: GLUCOPHAGE PO SCH ×2 (08:00→16:47)
[2017-11-10] MEDS ORDERED: PNEUMOVAX 23 IM ONE (09:00)
[2017-11-10 09:09] LABS: INR 0.95 (0.87-1.13)
[2017-11-10] MEDS ORDERED: K-DUR PO SCH (10:00)
[2017-11-10] MEDS ORDERED: NON-FORMULARY (Omeprazole Magnesium [Prilosec Otc] 20 MG) PO SCH (10:00)
[2017-11-10] MEDS ORDERED: NON-FORMULARY (Metformin Hcl [Metformin Hcl] 1,000 MG) PO SCH (10:00)
[2017-11-10] MEDS ORDERED: NON-FORMULARY (Hydrochlorothiazide 25 MG) PO SCH (10:00)
[2017-11-10] MEDS: COZAAR PO SCH (10:00)
[2017-11-10] MEDS ORDERED: COZAAR PO SCH ×2 (10:00)
[2017-11-10] MEDS: HCTZ PO SCH (10:00)
[2017-11-10] MEDS: LOVENOX SUB-Q SCH ×2 (10:00→21:54)
[2017-11-10] MEDS: PROTONIX PO SCH (10:00)
[2017-11-10] MEDS ORDERED: MOTRIN PO PRN (10:28)
--- NOTE | 2017-11-10 14:29 | Progress Note ---
Assessment and Plan Assessment and plan: 51-year-old -[place] female with past medical history significant for morbid obesity, PE presented to the emergency department complaining of shortness of breath. Patient has elevated d-dimer. CT was not done. 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 History Interval history: Patient was seen and evaluated this morning, patient is complaining of shortness of breath. Hospitalist Physical - Physical exam Narrative exam: Not in cardiopulmonary distress. The patient is morbidly obese. Vital signs as documented. Head exam is unremarkable. No scleral icterus . Neck is without jugular venous distension, thyromegaly, or carotid bruits. Lungs are clear to auscultation. Cardiac exam reveals regular rate and Rhythm. Abdominal exam reveals normal bowel sounds, no masses, no organomegaly and no aortic enlargement. Extremities are nonedematous and both femoral and pedal pulses are normal. 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 No focal weakness. - Constitutional Vitals: Temp Pulse Resp BP Pulse Ox 97.9 F 88 20 103/46 97 11/10/17 11:44 11/10/17 11:44 11/10/17 11:44 11/10/17 11:44 11/10/17 11:44 Results - Labs CBC & Chem 7: 11/09/17 10:21 11/09/17 10:21 Labs: Laboratory Last Values WBC 8.7 K/mm3 (4.5-11.0) 11/09/17 10:21 RBC 3.71 M/mm3 (3.65-5.03) 11/09/17 10:21 Hgb 8.7 gm/dl (10.1-14.3) L 11/09/17 10:21 Hct 28.4 % (30.3-42.9) L 11/09/17 10:21 MCV 77 fl (79-97) L 11/09/17 10:21 MCH 24 pg (28-32) L 11/09/17 10:21 MCHC 31 % (30-34) 11/09/17 10:21 RDW 18.7 % (13.2-15.2) H 11/09/17 10:21 Plt Count 336 K/mm3 (140-440) 11/09/17 10:21 Lymph % (Auto) 32.2 % (13.4-35.0) 11/09/17 10:21 [place] % (Auto) 12.2 % (0.0-7.3) H 11/09/17 10:21 Eos % (Auto) 2.5 % (0.0-4.3) 11/09/17 10:21 Baso % (Auto) 0.6 % (0.0-1.8) 11/09/17 10:21 Lymph # 2.8 K/mm3 (1.2-5.4) 11/09/17 10:21 Jerome # 1.1 K/mm3 (0.0-0.8) H 11/09/17 10:21 Eos # 0.2 K/mm3 (0.0-0.4) 11/09/17 10:21 Baso # 0.0 K/mm3 (0.0-0.1) 11/09/17 10:21 Seg Neutrophils % 52.5 % (40.0-70.0) 11/09/17 10:21 Seg Neutrophils # 4.6 K/mm3 (1.8-7.7) 11/09/17 10:21 PT 13.1 Sec. (12.2-14.9) 11/10/17 08:19 INR 0.95 (0.87-1.13) 11/10/17 08:19 VBG pH 7.390 (7.320-7.420) 11/09/17 10:21 Sodium 125 mmol/L (137-145) L 11/09/17 10:21 Potassium 4.6 mmol/L (3.6-5.0) 11/09/17 10:21 Chloride 88.7 mmol/L (98-107) L 11/09/17 10:21 Carbon Dioxide 22 mmol/L (22-30) 11/09/17 10:21 Anion Gap 19 mmol/L 11/09/17 10:21 BUN 10 mg/dL (7-17) 11/09/17 10:21 Creatinine 0.7 mg/dL (0.7-1.2) 11/09/17 10:21 Estimated GFR > 60 ml/min 11/09/17 10:21 BUN/Creatinine Ratio 14 % 11/09/17 10:21 Glucose 502 mg/dL (65-100) H* 11/09/17 10:21 POC Glucose 452 (70-105) H 11/10/17 11:39 Calcium 9.8 mg/dL (8.4-10.2) 11/09/17 10:21 Total Creatine Kinase 99 units/L (30-135) 11/09/17 10:21 CK-MB (CK-2) 1.2 ng/mL (0.0-4.0) 11/09/17 10:21 CK-MB (CK-2) Rel Index 1.2 (0-4) 11/09/17 10:21 Troponin T < 0.010 ng/mL (0.00-0.029) 11/09/17 10:21 NT-Pro-B Natriuret Pep 17.20 pg/mL (0-900) 11/09/17 10:21 Urine Color Colorless (Yellow) 11/10/17 00:00 Urine Turbidity Clear (Clear) 11/10/17 00:00 Urine pH 6.0 (5.0-7.0) 11/10/17 00:00 Ur Specific [place] 1.021 (1.003-1.030) 11/10/17 00:00 Urine Protein <15 mg/dl mg/dL (Negative) 11/10/17 00:00 Urine Glucose (UA) >=500 mg/dL (Negative) 11/10/17 00:00 Urine Ketones Tr mg/dL (Negative) 11/10/17 00:00 Urine Blood Neg (Negative) 11/10/17 00:00 Urine Nitrite Neg (Negative) 11/10/17 00:00 Urine Bilirubin Neg (Negative) 11/10/17 00:00 Urine Urobilinogen < 2.0 mg/dL (<2.0) 11/10/17 00:00 Ur Leukocyte Esterase Neg (Negative) 11/10/17 00:00 Urine WBC (Auto) 1.0 /HPF (0.0-6.0) 11/10/17 00:00 Urine RBC (Auto) < 1.0 /HPF (0.0-6.0) 11/10/17 00:00 U Epithel Cells (Auto) < 1.0 /HPF (0-13.0) 11/10/17 00:00
--- NOTE | 2017-11-10 15:48 | Consultation ---
History of Present Illness - Reason for Consult Consult date: 11/10/17 PE - History of Present Illness 51-year-old female presenting with a chief complaint of shortness of breath. The patient states for the past 3 days she has had dyspnea on exertion. The patient states she also has noticed palpitations and hyperglycemia with glucose greater than 600. The patient has a history of a pulmonary embolism and DVT in 2017 [place], and one month ago as a PE after a flight. She has been noncompliant with her medication due to insurance issues. She has been having shortness of breath with long ambulation. She is morbidly obese. CT scan ordered. CT scan demonstrates no right heart strain, and worsening occlusion of a segmental right lower lobe pulmonary embolism. Ultrasound of the lower extremities ordered demonstrating chronic scarring without acute clot. BNP normal. Troponin normal. Respirations normal at baseline. Past History Past Medical History: anemia, arthritis, diabetes, DVT (and pulmonary embolism) , GERD, hypertension, other (morbid obesity, asthma) Past Surgical History: , Other (right trigger finger release surgery) Social history: other (history of smoking, no longer smoking). denies: alcohol abuse, prescription drug abuse Family history: other (diabetes) Medications and Allergies Allergies Allergy/AdvReac Type Severity Reaction Status Date / Time Penicillins Allergy Hives Verified 11/09/17 10:10 egg AdvReac Nausea Verified 11/09/17 10:10 lisinopril AdvReac Unknown Verified 11/09/17 10:10 milk AdvReac Nausea Verified 11/09/17 10:10 Home Medications Medication Instructions Recorded Confirmed Last Taken Type oxyCODONE /ACETAMINOPHEN [Percocet 1 tab PO Q6H PRN #12 tablet 10/15/1711/06/17 09:00 Rx 5/325 mg] Hydrochlorothiazide 0.25 mg PO DAILY 11/09/17 11/09/17 11/09/17 09:00 History Insulin NPH Hum/Reg Insulin Hm 20 unit SQ TID 11/09/17 11/09/17 Unknown History [Novolin 70-30 100 Unit/ml Vial] Metformin HCl 1,000 mg PO BID 11/09/17 11/09/17 11/09/17 09:00 History Omeprazole Magnesium [PriLOSEC Otc] 20 mg PO QDAY 11/09/17 11/09/17 Unknown History Potassium Chloride [K-Dur] 10 mg PO DAILY 11/09/17 11/09/17 11/09/17 09:00 History Active Meds: Active Medications Enoxaparin Sodium (Lovenox) 100 mg SUB-Q Q12HR [facility] Last Admin: 11/10/17 10:00 Dose: 100 mg Hydrochlorothiazide (Hctz) 25 mg PO QDAY [facility] Last Admin: 11/10/17 10:00 Dose: 25 mg Sodium Chloride (Nacl 0.9% 1000 Ml) 1,000 mls @ 75 mls/hr IV DIRECT LINDA Ibuprofen (Motrin) 800 mg PO Q8H PRN PRN Reason: Pain, Mild (1-3) Insulin Glargine (Lantus) 30 units SUB-Q Q24H [facility] Insulin Human Lispro (Humalog) 10 unit SUB-Q TIDWM [facility]; Protocol Losartan Potassium (Cozaar) 50 mg PO QDAY [facility] Last Admin: 11/10/17 10:00 Dose: 50 mg Metformin HCl (Glucophage) 1,000 mg PO BIDDIAB [facility] Last Admin: 11/10/17 08:00 Dose: 1,000 mg Pantoprazole Sodium (Protonix) 20 mg PO QDAY [facility] Last Admin: 11/10/17 10:00 Dose: 20 mg Warfarin Sodium (Coumadin) 7.5 mg PO DAILY@1700 LINDA Review of Systems All systems: negative (see HPI) Exam - Constitutional Vitals: Temp Pulse Resp BP Pulse Ox 97.9 F 88 20 103/46 97 11/10/17 11:44 11/10/17 11:44 11/10/17 11:44 11/10/17 11:44 11/10/17 11:44 General appearance: Present: no acute distress - EENT Eyes: Present: EOM intact ENT: hearing intact - Respiratory Respiratory effort: normal - Extremities Extremities: normal temperature, normal color Extremity abnormal: edema (bilateral mild lower extremity edema), other ( minimal discomfort when touching lower legs) - Abdominal General gastrointestinal: Present: other (morbidly obese) - Psychiatric Psychiatric: appropriate mood/affect, cooperative Results - Labs CBC & Chem 7: 11/09/17 10:21 11/09/17 10:21 Labs: Abnormal lab results 11/09/17 11/09/17 11/10/17 Range/Units 16:31 21:36 06:14 POC Glucose 449 H 434 H 392 H (70-105) 11/10/17 Range/Units 11:39 POC Glucose 452 H (70-105) - Imaging and Cardiology CT scan - chest: report reviewed, image reviewed Venous US: report reviewed, image reviewed Assessment and Plan 51-year-old female with morbid obesity and shortness of breath with exertion and 2 prior episodes of thromboembolic events with one of those episodes not being treated resulting in worsening of a segmental pulmonary artery occlusion. CT scan ordered. No evidence of right heart strain on CT. No troponin elevation. No BNP elevation. Single segmental pulmonary embolism in the right lower lobe which has worsened due to lack of anticoagulation. No need for thrombolysis. Scarring in the lower extremity veins from prior DVT. No acute DVT. Shortness of breath multifactorial and partially secondary to segmental pulmonary embolism, but more likely secondary to significant hyperglycemia, morbid obesity, and other causes. Due to 2 prior episodes of thromboembolic events, will need to be anticoagulated for life. Unsuccessfully tried multiple times to contact case management. Requested that nurse get case management involved in order to assist patient with options for anticoagulation given lack of insurance. May need to consult hematology for outpatient coumadin clinic resources/ management. Vascular does not manage coumadin.
[2017-11-10] MEDS: COUMADIN PO SCH (16:48)
[2017-11-10] MEDS ORDERED: HumaLOG SUB-Q SCH (17:00)
[2017-11-10] MEDS: PERCOCET 5/325 PO PRN (22:41)
[2017-11-11] MEDS: NACL 0.9% 1000 ML 1,000 ML IV SCH (02:19)
[2017-11-11 08:08] LABS: INR 0.93 (0.87-1.13)
[2017-11-11 08:23] LABS: BUN/Creatinine Ratio 12; Blood Urea Nitrogen 7 mg/dL (7-17); Hemolysis Index 11
[2017-11-11] MEDS: PERCOCET 5/325 PO PRN (08:23)
[2017-11-11] MEDS: GLUCOPHAGE PO SCH ×2 (08:23→17:08)
[2017-11-11] MEDS: HumaLOG SUB-Q SCH ×3 (08:26→17:09)
[2017-11-11] MEDS: PROTONIX PO SCH (10:12)
[2017-11-11] MEDS: LOVENOX SUB-Q SCH ×2 (10:13→21:38)
[2017-11-11] MEDS: COZAAR PO SCH (10:15)
[2017-11-11] MEDS: HCTZ PO SCH (10:16)
--- NOTE | 2017-11-11 11:53 | Progress Note ---
Assessment and Plan Assessment and plan: 51-year-old -[place] female with past medical history significant for morbid obesity, PE presented to the emergency department complaining of shortness of breath. Patient has elevated d-dimer. CT was not done. PE with shortness of breath - Vascular surgery consulted and recommend anticoagulation - Patient is on therapeutic Lovenox and Coumadin - CTA ordered but pending because of hard stick, waiting for IV team tomorrow morning Morbid obesity - Jury Consultant about diet and exercise Uncontrolled diabetes mellitus - Increased Lantus to 35 units twice a day, humalog 15 units 3 times a day, metformin thousand milligrams twice a day - Accu-Chek, ADA diet Hypertension - Continue on HCTZ and losartan - Blood pressure is on the low side of normal, I'll hold the next dose Disposition - Continue inpatient care. - patient needs assistance about her medications. History Interval history: Patient was seen and evaluated this morning, SOB is getting better. Hospitalist Physical - Physical exam Narrative exam: Not in cardiopulmonary distress. The patient is morbidly obese. Vital signs as documented. Head exam is unremarkable. No scleral icterus . Neck is without jugular venous distension, thyromegaly, or carotid bruits. Lungs are clear to auscultation. Cardiac exam reveals regular rate and Rhythm. Abdominal exam reveals normal bowel sounds, no masses, no organomegaly and no aortic enlargement. Extremities are nonedematous and both femoral and pedal pulses are normal. 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 No focal weakness. - Constitutional Vitals: Temp Pulse Resp BP Pulse Ox 98.3 F 91 H 20 106/59 95 11/11/17 09:29 11/11/17 10:15 11/11/17 09:29 11/11/17 10:15 11/11/17 09:29 General appearance: Present: no acute distress Results - Labs CBC & Chem 7: 11/09/17 10:21 11/11/17 07:18 Labs: Laboratory Last Values WBC 8.7 K/mm3 (4.5-11.0) 11/09/17 10:21 RBC 3.71 M/mm3 (3.65-5.03) 11/09/17 10:21 Hgb 8.7 gm/dl (10.1-14.3) L 11/09/17 10:21 Hct 28.4 % (30.3-42.9) L 11/09/17 10:21 MCV 77 fl (79-97) L 11/09/17 10:21 MCH 24 pg (28-32) L 11/09/17 10:21 MCHC 31 % (30-34) 11/09/17 10:21 RDW 18.7 % (13.2-15.2) H 11/09/17 10:21 Plt Count 336 K/mm3 (140-440) 11/09/17 10:21 Lymph % (Auto) 32.2 % (13.4-35.0) 11/09/17 10:21 [place] % (Auto) 12.2 % (0.0-7.3) H 11/09/17 10:21 Eos % (Auto) 2.5 % (0.0-4.3) 11/09/17 10:21 Baso % (Auto) 0.6 % (0.0-1.8) 11/09/17 10:21 Lymph # 2.8 K/mm3 (1.2-5.4) 11/09/17 10:21 [place] # 1.1 K/mm3 (0.0-0.8) H 11/09/17 10:21 Eos # 0.2 K/mm3 (0.0-0.4) 11/09/17 10:21 Baso # 0.0 K/mm3 (0.0-0.1) 11/09/17 10:21 Seg Neutrophils % 52.5 % (40.0-70.0) 11/09/17 10:21 Seg Neutrophils # 4.6 K/mm3 (1.8-7.7) 11/09/17 10:21 PT 12.9 Sec. (12.2-14.9) 11/11/17 07:14 INR 0.93 (0.87-1.13) 11/11/17 07:14 VBG pH 7.390 (7.320-7.420) 11/09/17 10:21 Sodium 129 mmol/L (137-145) L 11/11/17 07:18 Potassium 3.9 mmol/L (3.6-5.0) 11/11/17 07:18 Chloride 94.9 mmol/L (98-107) L 11/11/17 07:18 Carbon Dioxide 21 mmol/L (22-30) L 11/11/17 07:18 Anion Gap 17 mmol/L 11/11/17 07:18 BUN 7 mg/dL (7-17) 11/11/17 07:18 Creatinine 0.6 mg/dL (0.7-1.2) L 11/11/17 07:18 Estimated GFR > 60 ml/min 11/11/17 07:18 BUN/Creatinine Ratio 12 % 11/11/17 07:18 Glucose 388 mg/dL (65-100) H 11/11/17 07:18 POC Glucose 431 (70-105) H 11/11/17 06:13 Calcium 9.0 mg/dL (8.4-10.2) 11/11/17 07:18 Total Creatine Kinase 99 units/L (30-135) 11/09/17 10:21 CK-MB (CK-2) 1.2 ng/mL (0.0-4.0) 11/09/17 10:21 CK-MB (CK-2) Rel Index 1.2 (0-4) 11/09/17 10:21 Troponin T < 0.010 ng/mL (0.00-0.029) 11/09/17 10:21 NT-Pro-B Natriuret Pep 17.20 pg/mL (0-900) 11/09/17 10:21 Urine Color Colorless (Yellow) 11/10/17 00:00 Urine Turbidity Clear (Clear) 11/10/17 00:00 Urine pH 6.0 (5.0-7.0) 11/10/17 00:00 Ur Specific [place] 1.021 (1.003-1.030) 11/10/17 00:00 Urine Protein <15 mg/dl mg/dL (Negative) 11/10/17 00:00 Urine Glucose (UA) >=500 mg/dL (Negative) 11/10/17 00:00 Urine Ketones Tr mg/dL (Negative) 11/10/17 00:00 Urine Blood Neg (Negative) 11/10/17 00:00 Urine Nitrite Neg (Negative) 11/10/17 00:00 Urine Bilirubin Neg (Negative) 11/10/17 00:00 Urine Urobilinogen < 2.0 mg/dL (<2.0) 11/10/17 00:00 Ur Leukocyte Esterase Neg (Negative) 11/10/17 00:00 Urine WBC (Auto) 1.0 /HPF (0.0-6.0) 11/10/17 00:00 Urine RBC (Auto) < 1.0 /HPF (0.0-6.0) 11/10/17 00:00 U Epithel Cells (Auto) < 1.0 /HPF (0-13.0) 11/10/17 00:00
[2017-11-11] MEDS ORDERED: LANTUS SUB-Q SCH ×2 (16:00)
[2017-11-11] MEDS: COUMADIN PO SCH (17:07)
--- NOTE | 2017-11-11 18:05 | Progress Note ---
Assessment and Plan 51-year-old female with morbid obesity and shortness of breath with exertion and 2 prior episodes of thromboembolic events with one of those episodes not being treated resulting in worsening of a segmental pulmonary artery occlusion. CT scan pending due to difficult IV access. No troponin elevation. No BNP elevation. Although CT scan should be obtained to assess clot burden, suspect no need for thrombolysis based on hemodynamic stability and negative biomarkers . Scarring in the lower extremity veins from prior DVT. No acute DVT. Due to 2 prior episodes of thromboembolic events, will need to be anticoagulated for life. May need to consult hematology for outpatient coumadin clinic resources/management. Vascular does not manage coumadin. Subjective Date of service: 11/11/17 Interval history: Feeling good. No SOB. No CP. Had multiple IV attempts to get IV access which are unsuccessful. Legs feel the same. Objective - Constitutional Vitals: Vital Signs - 12hr 11/11/17 11/11/17 11/11/17 08:23 09:29 10:00 Temperature 98.3 F Pulse Rate 88 Pulse Rate [ 90 Apical] Pulse Rate [ 90 Left Dorsalis Pedis] Pulse Rate [ 90 Left Radial] Pulse Rate [ 90 Right Dorsalis Pedis] Pulse Rate [ 90 Right Radial] Respiratory 17 20 18 Rate Blood Pressure 101/44 Blood Pressure [Left] O2 Sat by Pulse 95 100 Oximetry 11/11/17 11/11/17 11/11/17 10:15 12:00 12:54 Temperature 98.2 F Pulse Rate 91 H 87 90 Pulse Rate [ Apical] Pulse Rate [ Left Dorsalis Pedis] Pulse Rate [ Left Radial] Pulse Rate [ Right Dorsalis Pedis] Pulse Rate [ Right Radial] Respiratory 19 Rate Blood Pressure 106/59 Blood Pressure 115/57 [Left] O2 Sat by Pulse Oximetry General appearance: Present: no acute distress - EENT Eyes: EOM intact ENT: hearing intact - Respiratory Respiratory effort: normal Extremities: normal temperature, normal color Extremity abnormal: edema - Psychiatric Psychiatric: appropriate mood/affect, cooperative - Labs CBC & Chem 7: 11/09/17 10:21 11/11/17 07:18 Labs: Abnormal lab results 11/10/17 11/10/17 11/11/17 Range/Units 16:07 21:15 06:13 Sodium (137-145) mmol/L Chloride (98-107) mmol/L Carbon Dioxide (22-30) mmol/L Creatinine (0.7-1.2) mg/dL Glucose (65-100) mg/dL POC Glucose 387 H 236 H 431 H (70-105) 11/11/17 11/11/17 Range/Units 07:18 12:00 Sodium 129 L (137-145) mmol/L Chloride 94.9 L (98-107) mmol/L Carbon Dioxide 21 L (22-30) mmol/L Creatinine 0.6 L (0.7-1.2) mg/dL Glucose 388 H (65-100) mg/dL POC Glucose 373 H (70-105)
[2017-11-11] MEDS: COLACE PO SCH (22:44)
[2017-11-11] MEDS: MORPHINE IV PRN (22:44)
[2017-11-12] MEDS: NACL 0.9% 1000 ML 1,000 ML IV SCH (05:21)
[2017-11-12 07:44] LABS: BUN/Creatinine Ratio 12; Blood Urea Nitrogen 6 mg/dL (7-17); Calcium 8.6 mg/dL (8.4-10.2); Hemolysis Index 7; INR 1.06 (0.87-1.13)
[2017-11-12] MEDS: GLUCOPHAGE PO SCH ×2 (08:51→18:48)
[2017-11-12] MEDS: HumaLOG SUB-Q SCH ×3 (08:54→18:49)
[2017-11-12] MEDS: COZAAR PO SCH (10:50)
[2017-11-12] MEDS: HCTZ PO SCH (10:51)
[2017-11-12] MEDS: PROTONIX PO SCH (10:51)
[2017-11-12] MEDS: COLACE PO SCH ×2 (10:51→22:59)
[2017-11-12] MEDS: LOVENOX SUB-Q SCH ×2 (10:53→22:59)
[2017-11-12] MEDS ORDERED: LANTUS SUB-Q SCH (16:00)
--- NOTE | 2017-11-12 16:48 | Progress Note ---
Assessment and Plan Assessment and plan: 51-year-old -Swedish female with past medical history significant for morbid obesity, PE presented to the emergency department complaining of shortness of breath. Patient has elevated d-dimer. CT was not done. PE with shortness of breath - Vascular surgery consulted and recommend anticoagulation - Patient is on therapeutic Lovenox and Coumadin - CTA ordered but pending Morbid obesity - Utility Locator about diet and exercise Uncontrolled diabetes mellitus - Increased Lantus to 35 units twice a day, humalog 15 units 3 times a day, metformin thousand milligrams twice a day - Accu-Chek, ADA diet Hypertension - Continue on HCTZ and losartan - Blood pressure is on the low side of normal, I'll hold the next dose Disposition - INR is subtherapeutic, patient didn't have insurance. History Interval history: Patient was seen and evaluated this morning, SOB is getting better. Hospitalist Physical - Physical exam Narrative exam: Not in cardiopulmonary distress. The patient is morbidly obese. Vital signs as documented. Head exam is unremarkable. No scleral icterus . Neck is without jugular venous distension, thyromegaly, or carotid bruits. Lungs are clear to auscultation. Cardiac exam reveals regular rate and Rhythm. Abdominal exam reveals normal bowel sounds, no masses, no organomegaly and no aortic enlargement. Extremities are nonedematous and both femoral and pedal pulses are normal. WORK ORDER DETAILER: Alert and oriented 3. No focal weakness. - Constitutional Vitals: Temp Pulse Resp BP Pulse Ox 97.9 F 92 H 20 129/70 99 11/12/17 15:55 11/12/17 15:55 11/12/17 15:55 11/12/17 15:55 11/12/17 15:55 General appearance: Present: no acute distress Results - Labs CBC & Chem 7: 11/09/17 10:21 11/12/17 06:16 Labs: Laboratory Last Values WBC 8.7 K/mm3 (4.5-11.0) 11/09/17 10:21 RBC 3.71 M/mm3 (3.65-5.03) 11/09/17 10:21 Hgb 8.7 gm/dl (10.1-14.3) L 11/09/17 10:21 Hct 28.4 % (30.3-42.9) L 11/09/17 10:21 MCV 77 fl (79-97) L 11/09/17 10:21 MCH 24 pg (28-32) L 11/09/17 10:21 MCHC 31 % (30-34) 11/09/17 10:21 RDW 18.7 % (13.2-15.2) H 11/09/17 10:21 Plt Count 336 K/mm3 (140-440) 11/09/17 10:21 Lymph % (Auto) 32.2 % (13.4-35.0) 11/09/17 10:21 [place] % (Auto) 12.2 % (0.0-7.3) H 11/09/17 10:21 Eos % (Auto) 2.5 % (0.0-4.3) 11/09/17 10:21 Baso % (Auto) 0.6 % (0.0-1.8) 11/09/17 10:21 Lymph # 2.8 K/mm3 (1.2-5.4) 11/09/17 10:21 [place] # 1.1 K/mm3 (0.0-0.8) H 11/09/17 10:21 Eos # 0.2 K/mm3 (0.0-0.4) 11/09/17 10:21 Baso # 0.0 K/mm3 (0.0-0.1) 11/09/17 10:21 Seg Neutrophils % 52.5 % (40.0-70.0) 11/09/17 10:21 Seg Neutrophils # 4.6 K/mm3 (1.8-7.7) 11/09/17 10:21 PT 14.4 Sec. (12.2-14.9) 11/12/17 06:16 INR 1.06 (0.87-1.13) 11/12/17 06:16 VBG pH 7.390 (7.320-7.420) 11/09/17 10:21 Sodium 133 mmol/L (137-145) L 11/12/17 06:16 Potassium 3.7 mmol/L (3.6-5.0) 11/12/17 06:16 Chloride 100.8 mmol/L (98-107) 11/12/17 06:16 Carbon Dioxide 21 mmol/L (22-30) L 11/12/17 06:16 Anion Gap 15 mmol/L 11/12/17 06:16 BUN 6 mg/dL (7-17) L 11/12/17 06:16 Creatinine 0.5 mg/dL (0.7-1.2) L 11/12/17 06:16 Estimated GFR > 60 ml/min 11/12/17 06:16 BUN/Creatinine Ratio 12 % 11/12/17 06:16 Glucose 325 mg/dL (65-100) H 11/12/17 06:16 POC Glucose 344 (70-105) H 11/12/17 05:55 Calcium 8.6 mg/dL (8.4-10.2) 11/12/17 06:16 Total Creatine Kinase 99 units/L (30-135) 11/09/17 10:21 CK-MB (CK-2) 1.2 ng/mL (0.0-4.0) 11/09/17 10:21 CK-MB (CK-2) Rel Index 1.2 (0-4) 11/09/17 10:21 Troponin T < 0.010 ng/mL (0.00-0.029) 11/09/17 10:21 NT-Pro-B Natriuret Pep 17.20 pg/mL (0-900) 11/09/17 10:21 Urine Color Colorless (Yellow) 11/10/17 00:00 Urine Turbidity Clear (Clear) 11/10/17 00:00 Urine pH 6.0 (5.0-7.0) 11/10/17 00:00 Ur Specific [place] 1.021 (1.003-1.030) 11/10/17 00:00 Urine Protein <15 mg/dl mg/dL (Negative) 11/10/17 00:00 Urine Glucose (UA) >=500 mg/dL (Negative) 11/10/17 00:00 Urine Ketones Tr mg/dL (Negative) 11/10/17 00:00 Urine Blood Neg (Negative) 11/10/17 00:00 Urine Nitrite Neg (Negative) 11/10/17 00:00 Urine Bilirubin Neg (Negative) 11/10/17 00:00 Urine Urobilinogen < 2.0 mg/dL (<2.0) 11/10/17 00:00 Ur Leukocyte Esterase Neg (Negative) 11/10/17 00:00 Urine WBC (Auto) 1.0 /HPF (0.0-6.0) 11/10/17 00:00 Urine RBC (Auto) < 1.0 /HPF (0.0-6.0) 11/10/17 00:00 U Epithel Cells (Auto) < 1.0 /HPF (0-13.0) 11/10/17 00:00
--- NOTE | 2017-11-12 17:20 | Event Note ---
Date: 11/12/17 Pt ana'd earlier this am. She is without new complaint. Await CTA. Consider Hematology consult.
[2017-11-12] MEDS: COUMADIN PO SCH (18:48)
[2017-11-12] MEDS: MORPHINE IV PRN (18:59)
[2017-11-13] MEDS: MORPHINE IV PRN ×2 (01:32→10:10)
[2017-11-13 06:00] LABS: INR 0.95 (0.87-1.13)
[2017-11-13] MEDS ORDERED: NACL 0.9% 50 ML ONE (08:10)
--- NOTE | 2017-11-13 09:01 | Cat Scan Report ---
CTA CHEST: HISTORY: Pulmonary embolism one month ago, noncompliant. COMPARISON: 10/13/17. TECHNIQUE: Helical CT in 1.25mm intervals following IV contrast. Pulmonary embolus protocol. Sagittal and coronal reformatted images. Rotational MIP images. FINDINGS: Contrast bolus is satisfactory. A small nonocclusive filling defect is identified in a second and third order branch leading to the right lower lobe. This was also seen on the previous exam but appears to have decreased by approximately 50% in volume. A new occlusive filling defect is identified in a second order branch leading to the right upper lobe. A new nonocclusive filling defect is identified in a third order branch leading to the lateral left lower lobe. Thyroid gland: Normal. Tracheobronchial tree: Normal. Esophagus: Normal. Heart: Normal. Pericardium: Normal. Mediastinum: Normal. Lung Ervin: Normal. Pleural Spaces: Normal. Musculoskeletal: Intact. IMPRESSION: Positive for pulmonary embolus as outlined above. There appears to be mild improvement in a right lower lobe pulmonary embolus. 2 new emboli are identified in the right upper lobe and left lower lobe as described.
[2017-11-13] MEDS: LOVENOX SUB-Q SCH (10:06)
[2017-11-13] MEDS: COLACE PO SCH (10:06)
[2017-11-13] MEDS: GLUCOPHAGE PO SCH ×2 (10:06→18:04)
[2017-11-13] MEDS: HumaLOG SUB-Q SCH ×3 (10:09→18:04)
[2017-11-13] MEDS: COZAAR PO SCH (10:10)
[2017-11-13] MEDS: HCTZ PO SCH (10:10)
[2017-11-13] MEDS: PROTONIX PO SCH (10:10)
--- NOTE | 2017-11-13 11:51 | Discharge Summary ---
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 Patient has elevated d-dimer. . PE with shortness of breath - Vascular surgery consulted and recommend anticoagulation - Patient is on therapeutic Lovenox and Coumadin - CTA shows Pulmonary embilism - Patient discharged with Lovenox paid for by the hosptial and coumadin Morbid obesity - Ethanol Operator about diet and exercise Uncontrolled diabetes mellitus - changed to , humalog 25 units 3 times a day, on discharge metformin thousand milligrams twice a day - Accu-Chek, ADA diet Hypertension - Continue on HCTZ and losartan - Blood pressure is on the low side of normal, I'll hold the next dose Disposition - INR is subtherapeutic, patient didn't have insurance. Disposition: DC- TO HOME OR SELFCARE Time spent for discharge: 35 MINS Core Measure Documentation - Palliative Care Palliative Care/ Comfort Measures: Not Applicable - Core Measures Any of the following diagnoses?: DVT/PE - VTE Discharge Requirements Deep Vein Thrombosis/Pulmonary Embolism Present on Admission: No Exam - Constitutional Vitals: Temp Pulse Resp BP Pulse Ox 98.2 F 95 H 18 107/60 98 11/13/17 04:48 11/13/17 04:48 11/13/17 04:48 11/13/17 04:48 11/13/17 04:48 Plan Activity: advance as tolerated, fall precautions Diet: low salt, diabetic Special Instructions: record daily BP diary, other (INR CHECK IN 3 DAYS) Follow up with: PRIMARY CARE, [Primary Care Provider] - 3-5 Days Forms: Warfarin Discharge Instruction Prescriptions: Enoxaparin [Lovenox] 100 mg SUB-Q Q12HR #10 syringe Insulin NPH Hum/Reg Insulin Hm [Novolin 70-30 100 Unit/ml Vial] 25 unit SQ TID 30 Days vial Losartan [Cozaar] 50 mg PO QDAY #30 tablet Warfarin [Coumadin] 5 mg PO QDAY #30 tablet
[2017-11-13] MEDS ORDERED: LANTUS SUB-Q SCH (12:17)
[2017-11-13] MEDS ORDERED: COUMADIN PO SCH (17:00)
--- NOTE | 2017-11-13 17:20 | Event Note ---
Date: 11/13/17 Pt eval'd earlier today. She continued to c/o SOB. CTA completed and showed improvement in previous clot burden (~50% by report), but now she has acute occlusive defect in 2nd order brach of the RUL. She also has an acute nonocclusive defect in the 3rd order branch of the LLL. Pt was not taking anticoagulation as an outpt following d/c from recent PE (due to finacial issues and a loss of medical insurance). She does not appear to need thrombolytic therapy of PE at this point, but clearly needs to be on anticoagulation. Discussed the importance of continuing anticoagulation following d/c. She states understanding. Given that she has had at least 3 separate thrombotic events, she likely needs hematologic w/u into possible hypercoagulable state. Pt states her daughter and her uncle have had PE and required anticoagulation.
[2017-11-13 20:07] VITALS: BP 124/75
--- NOTE | 2017-11-14 14:01 | Vascular Lab Report ---
LOWER EXTREMITY VENOUS DUPLEX: REASON FOR EXAM: Pulmonary embolism. COMMENTS ON THE RIGHT: Chronic thrombus is seen in the peroneal vein in the calf. The remaining veins visualized are freely compressible without evidence of internal echogenicity. Spontaneous and phasic flow is present proximally. COMMENTS ON THE LEFT: All veins visualized are freely compressible without evidence of internal echogenicity. Flow is spontaneous and phasic throughout. IMPRESSION: Chronic thrombus seen in the right peroneal vein in the calf. No evidence of acute deep venous thrombosis in either lower extremity. These findings are consistent with aging of thrombus in the peroneal vein in the right lower extremity as originally diagnosed on April 01, 2016.
== END 2017-11-13 21:10 | disposition home or self-care (01) | DRG 176 ==
LOC: ED 09:55 → 4A 12:44
PROVIDERS: ADMIT Internal Medicine; ATTEND Internal Medicine
DX: I26.99 Other pulmonary embolism without acute cor pulmonale (principal); Z68.42 Body mass index [BMI] 45.0-49.9, adult; E87.1 Hypo-osmolality and hyponatremia; I82.5Z2 Chronic embolism and thrombosis of unspecified deep veins of left distal lower extremity; E11.65 Type 2 diabetes mellitus with hyperglycemia; I10 Essential (primary) hypertension; M19.90 Unspecified osteoarthritis, unspecified site; J45.909 Unspecified asthma, uncomplicated; E66.01 Morbid (severe) obesity due to excess calories; T50.2X5A Adverse effect of carbonic-anhydrase inhibitors, benzothiadiazides and other diuretics, initial encounter; Y92.89 Other specified places as the place of occurrence of the external cause; G89.29 Other chronic pain; K21.9 Gastro-esophageal reflux disease without esophagitis; Z88.0 Allergy status to penicillin; Z88.8 Allergy status to other drugs, medicaments and biological substances; Z91.012 Allergy to eggs; Z79.01 Long term (current) use of anticoagulants; Z79.4 Long term (current) use of insulin; Z91.14 Patient's other noncompliance with medication regimen; Z91.011 Allergy to milk products
CPT/HCPCS: 36415; 71275; 80048; 81001; 82550; 82553; 82805; 82962; 83880; 84484; 85025; 85610; 90732; 93005; 93010; 93970; 96361; 96372; 96374; J1170; J1650; J1815; J2270; J7030; Q9967